=== PATIENT | male | born 1950 | race Caucasian/White ===

== ENCOUNTER 2024-10-12 17:37 | Inpatient (IN) | payer MEDICARE, OTHER, SELFPAY ==
[2024-10-12] VITALS (10 sets, daily range): BP systolic 91–116; BP diastolic 67–89; BMI 19.6
--- NOTE | 2024-10-12 14:59 | ED.GENMED ---
History of Present Illness
General
Chief Complaint: Weakness
Source: patient and ambulance crew
Time Seen by Provider: 10/12/24 14:38
History of Present Illness
History of Present Illness:
74-year-old male with past medical history of urinary tract infection presenting to the emergency department with EMS from home where patient resides with his son and family for evaluation of generalized weakness and change in mental status for the
last week or so. Patient reportedly has history of frequent urinary tract infections and per EMS recently completed antibiotics, patient however without any specific complaints. He is denying any abdominal pain, nausea, vomiting, bowel changes,
urinary frequency/urgency/dysuria or hematuria, pain or swelling to the testicles or any other pain.
Past History
Past History
ED Past Medical History: None; Negative Asthma, HTN, Hypercholesterolemia or NIDDM
ED Past Surgical History: None
Social History
Tobacco: Smoker
Alcohol: Daily (Wine Patient says 2 glasses and son says at least a bottle)
Drug: None
Personal:
Living: with family (Son)
Review of Systems
Review of Systems
All Other Systems: ROS reviewed and negative except as documented in HPI and ROS
Phy Exam
Physical Exam
Physical Exam:
GENERAL: Alert , in no apparent distress, appears older than stated age, soft-spoken, malodorous
HEAD: NCAT
EYE: clear conjunctiva
NECK: Supple
ENT: o/p clr, dry mucous membranes
CARDIAC: Regular rate and rhythm .
LUNGS: Clear breath sounds bilaterally, no acute respiratory distress, no wheezes/rales/rhonchi
ABDOMEN: Soft, without focal tenderness, no r/g, no cvat
NEUROLOGICAL: Alert and oriented to self and place, not time
SKIN: Warm and dry, skin intact.
MUSCULOSKELETAL: well perfused.
PSYCH: Normal and appropriate interaction.
Scores
Heart Failure Risk
Heart Failure Risk Score: Not Applicable
Heart Score for Chest Pain Patients
STEMI patient?: Not applicable
Withdrawal Assessment of Alcohol
Withdrawal Assessment Completed?: Not applicable
Course
Orders/Labs/Results
Orders:
Orders
10/12/24 14:54
Electrocardiogram (*1) Urgent
Reason for Study: Other
Other Reason for Exam: sepsis
EKG- Treatment ONCE
Straight cath- Treatment ONCE
0.9% Sodium Chloride 1000 ml [Nss] 1,900 ml IV NOW STA
10/12/24 15:00
Lactic Acid Q4H
Comment: CANCEL 2nd LACTIC ACID IF 1st LACTIC ACID IS LESS THAN 2
10/12/24 15:10
Urinalysis Reflex To Culture Urgent
Date Specimen was Collected: 10/12/24
Time Specimen was Collected: 15:09
Urine Microscopic Reflex Cult Urgent
Urine Culture Urgent
COLE Source: U
Specimen Description:
Date Specimen was Collected: 10/12/24
Time Specimen was Collected: 15:09
10/12/24 15:42
Complete Blood Count/With Diff Urgent
Comprehensive Metabolic Panel Urgent
Glycohemoglobin (HgbA1c) Urgent
Lactic Acid Q4H
Comment: CANCEL 2nd LACTIC ACID IF 1st LACTIC ACID IS LESS THAN 2
Serum Osmolality Urgent
Comment: ADDON
Blood Culture Q30M
COLE Source: Blood/Venous
Specimen Description:
Blood Culture Q30M
COLE Source: Blood/Venous
Specimen Description:
10/12/24 16:00
Cefepime HCl [Maxipime] 2,000 mg IV NOW STA
10/12/24 17:04
Add On- LAB Routine
Tests Added?: Serum Osmol, HBA1C
10/12/24 17:05
Sterile Water [Sterile Water For Injection] 10 ml .ROUTE .STK-MED ONE
10/12/24 17:30
Admit/Transfer Patient As Directed
Co-Sign Provider:
Level of Care: Inpatient admission
Assign to:: Medical/Surgical
Physician / Group: Hospitalist
Diagnosis: Urinary tract Infection
Reason for Hospitalization: as above
Expected length of stay greater than two midnights?: Yes
ELOS- Estimated Length of Stay in days: 3
I certify the patient meets the requirements for IP care: Yes
PRN Pain Medication Management As Directed
May give lesser potent ordered pain med per pt: Yes
preference::
Protocol:: Medication orders for pain may be administered in a
manner that supports deferring to patient preference
when the pt is:
- Requesting an ordered lesser potent pain medication.
Least to most potent pain medications are defined
as: acetaminophen < NSAID < tramadol < opioids
(morphine, oxycodone, hydromorphone).
- Requesting a lesser dose of the same medication IF
ORDERED.
- Requesting a less intrusive route of administration
if both routes are prescribed by the provider (PO <
IV).
10/12/24 17:31
Code Status As Directed
Resuscitation Status: Full Code
10/12/24 17:34
Bedside Glucose Monitoring As Directed
Frequency: AC&HS
Abnormal Lab Results
10/12/24 10/12/24
15:10 15:42
WBC 12.1 H 10^3/uL
(4.8-10.8)
MCH 31.9 H pg
(27.0-31.0)
MPV 10.5 H fL
(7.4-10.4)
Abs Immat Gran (auto) 0.1 H 10^3/uL
(0-0.05)
Absolute Neuts (auto) 10.2 H 10^3/uL
(1.4-6.5)
Absolute Lymphs (auto) 0.8 L 10^3/uL
(1.2-3.4)
Absolute Monos (auto) 0.8 H 10^3/uL
(0.1-0.6)
Immature Gran % 1.0 H %
(0-0.5)
Neutrophils % 84.7 H %
(42.2-75.2)
Lymphocytes % 6.6 L %
(20.5-51.1)
Sodium 127 L mmol/L
(135-145)
Chloride 87 L mmol/L
(98-107)
BUN 64 H mg/dl
(9-20)
Creatinine 1.4 H mg/dL
(0.7-1.3)
Glucose 437 H mg/dl
(70-99)
Lactic Acid 2.1 H mmol/L
(0.7-2.0)
Alkaline Phosphatase 127 H U/L
(38-126)
Ur Occult Blood Reflex 3+ A
(Negative)
Leukocyte Esterase Rfl 2+ A
(Negative)
Urine RBC 7-10 A /HPF
(0-2)
Urine WBC (Reflex) 30-40 A /HPF
(0-5)
Urine Bacteria (Reflex) Many A
(Negative)
Urine Glucose 3+ A
(Negative)
Urine Albumin (Reflex) 1+ A
(Neg - Trace)
10/12/24 15:42
10/12/24 15:42
Vital Signs
Initial and Last Documented VS:
Initial Vital Signs
BP
96/73
10/12/24 14:43
Last Documented Vital Signs
Temp Pulse Resp BP Pulse Ox
97.8 F 69 12 110/89 100
10/12/24 14:50 10/12/24 17:00 10/12/24 17:00 10/12/24 17:00 10/12/24 14:50
MDM/Problems Addressed
Differential Diagnosis Includes:
Recurring UTI, metabolic encephalopathy, acute kidney injury, electrolyte disturbance
MDM/Problems Addressed:
74-year-old male presenting to the emergency department for evaluation of reported generalized weakness and confusion. On arrival to the ER patient was noted to be hypotensive. Patient is somewhat malodorous and unkempt. Reportedly recently
finished antibiotics for urinary tract infection but patient is unable to expound on this diagnosis any further. Will check labs, urinalysis, blood cultures and lactic acid ordered. Anticipate admission
*Pulse Oximetry
Patient hypoxic: no
*Critical Care Note
Total Time (30-74mins, 75-104mins- exclusive of procedures): Not Applicable
Data Reviewed
Review of Other/Old Records Reveals: Labs and Records
Comment
Comment:
Patient had MSSA on urine culture back in December of this year
Patient Management
Discussion with other providers: Hospitalist
Escalation/DeEscalation of care consider admission/obs:
Patient's labs reveal a leukocytosis of 12,000. Chemistry shows a sodium of 127, significant prerenal azotemia and mild BRIE and hyperglycemia. Patient's corrected sodium however is 132. Lactic acid mildly elevated at 2.1. Patient did receive
sepsis fluid bundle. Urinalysis shows 2+ leukocyte esterase and 30-40 WBCs. Maxipime ordered for broad-spectrum antibiotic coverage. Hospitalist team is aware and accepts patient for continued evaluation and treatment.
ED Attending Note
-
Portions of this chart may have been created with voice recognition software.� Occasional wrong word or��sound alike� substitutions may have occurred due to the inherent limitations of voice recognition software.
Discharge Plan
Departure
Patient Disposition: Admit
Date of Disposition: 10/12/24
Time of Disposition: 16:40
Presentation/result/management discussed w/ accepting MD/DO: Hospitalist
Discharge Problem:
Acute UTI, Acute metabolic encephalopathy, BRIE (acute kidney injury)
Interventions
Interventions:
*General Assessment Last Done: 10/12/24 15:16
*Neglect/Abuse Screening Last Done: 10/12/24 15:16
*ED COVID-19 Vaccine History Last Done: 10/12/24 15:16
ED- Cardiac Assessment Last Done: 10/12/24 15:15
ED- Neurological Assessment Last Done: 10/12/24 15:15
ED- Pulmonary Assessment Last Done: 10/12/24 15:15
[2024-10-12 15:22] LABS: Urine Albumin 1+ (Neg - Trace); Urine Bilirubin Negative (Negative); Urine Character Very Cloudy (Clear); Urine Color Yellow; Urine Glucose 3+ (Negative); Urine Ketone Negative (Negative); Urine Leukocyte 2+ (Negative); Urine Nitrite Negative (Negative); Urine Occult Blood 3+ (Negative); Urine Urobilinogen Negative (Neg - 1+)
[2024-10-12 15:37] LABS: Urine Bacteria Many (Negative); Urine White Cell 30-40 /HPF (0-5)
[2024-10-12] MEDS: NSS 1900 ML IV (15:41)
[2024-10-12 16:13] LABS: % Basophils 0.2 % (0-2); % Lymphocytes 6.6 % (20.5-51.1); % Monocytes 6.5 % (1.7-9.3); % Neutrophils 84.7 % (42.2-75.2); Absolute Eosinophils 0.1 10^3/uL (0-0.7); Absolute Immature Granulocytes 0.1 10^3/uL (0-0.05); Absolute Lymphocytes 0.8 10^3/uL (1.2-3.4); Absolute Monocytes 0.8 10^3/uL (0.1-0.6); Absolute Neutrophils 10.2 10^3/uL (1.4-6.5); Hematocrit 42.4 % (39.0-52.0); Hemoglobin 15.2 g/dL (13.0-18.0); Mean Corp Hgb Conc. 35.8 g/dL (33.0-37.0); Mean Corpuscular Hgb 31.9 pg (27.0-31.0); Mean Corpuscular Volume 89.1 fL (80.0-94.0); Mean Platelet Volume 10.5 fL (7.4-10.4); Nucleated Red Blood Cells % 0 % (-); Platelet Count 281 10^3/uL (130-400); Red Blood Cell Count 4.76 10^6/uL (4.70-6.10); White Blood Cell Count 12.1 10^3/uL (4.8-10.8)
--- NOTE | 2024-10-12 16:20 | PHANOTE ---
Litigain(10/12/24)-Talked to family on phone that lives with patient, difficult for them to administer all medications routinely. Despite having clopidogrel 75mg and levothyroxine 75mcg, family has been unsuccessful in administering these
medications.
[2024-10-12 16:26] LABS: Lactic Acid 2.1 mmol/L (0.7-2.0)
[2024-10-12 16:30] LABS: ALT (SGPT) 16 U/L (0-50); AST (SGOT) 24 U/L (17-59); Albumin 3.8 g/dl (3.5-5.0); Alkaline Phosphatase 127 U/L (38-126); Blood Urea Nitrogen 64 mg/dl (9-20); Calcium 9.9 mg/dl (8.4-10.2); Carbon Dioxide 23 mmol/L (22-30); Chloride 87 mmol/L (98-107); Estimated Creatinine Clearance 40 ml/min; Glucose 437 mg/dl (70-99); Potassium 4.2 mmol/L (3.5-5.1); Sodium 127 mmol/L (135-145); Total Bilirubin 0.9 mg/dl (0.2-1.3); Total Protein 7.4 g/dl (6.3-8.2); eGFR 52.41
--- NOTE | 2024-10-12 16:48 | W.PN.UPDATE ---
Update Note
Progress Note Update
I personally performed a history and physical exam of the patient and discussed management with the resident. I reviewed the resident's note and agree with the documented findings and plan of care HPI/CC.
74-year-old male who presents with chief complaint of weakness.
96/73, 81, 20, 97.8 F, 100%
Gen: NAD, AAOx2.
Eyes: EOMI, PERRLA, no scleral icterus.
Neck: supple.
CV: RRR, +S1/S2, no m/r/g.
Resp: CTAB, no rales, wheezes, or rhonchi.
Abd: +BS, soft, NT, ND
Skin: No rashes.
Neuro: CN 2-12 intact, non-focal.
Psych: Normal mood and affect.
Lab Results
10/12/24 10/12/24
15:10 15:42
WBC 12.1 H
RBC 4.76
Hgb 15.2
Hct 42.4
MCV 89.1
MCH 31.9 H
MCHC 35.8
RDW 13.0
Plt Count 281
MPV 10.5 H
Abs Immat Gran (auto) 0.1 H
Absolute Neuts (auto) 10.2 H
Absolute Lymphs (auto) 0.8 L
Absolute Monos (auto) 0.8 H
Absolute Eos (auto) 0.1
Absolute Basos (auto) 0.0
Immature Gran % 1.0 H
Neutrophils % 84.7 H
Lymphocytes % 6.6 L
Monocytes % 6.5
Eosinophils % 1.0
Basophils % 0.2
Nucleated RBC % 0
Sodium 127 L
Potassium 4.2
Chloride 87 L
Carbon Dioxide 23
BUN 64 H
Creatinine 1.4 H
Estimated Creat Clear 40
eGFR 52.41
Glucose 437 H
Lactic Acid 2.1 H
Calcium 9.9
Total Bilirubin 0.9
AST 24
ALT 16
Alkaline Phosphatase 127 H
Total Protein 7.4
Albumin 3.8
Urine Color Yellow
Urine Clarity Very cloudy
Urine pH 6.0
Ur Specific Driscoll 1.010
Urine Ketones Negative
Ur Occult Blood Reflex 3+ A
Urine Nitrite (Reflex) Negative
Urine Bilirubin Negative
Urine Urobilinogen Negative
Leukocyte Esterase Rfl 2+ A
Urine RBC 7-10 A
Urine WBC (Reflex) 30-40 A
Urine Bacteria (Reflex) Many A
Urine Glucose 3+ A
Urine Albumin (Reflex) 1+ A
BRIE and likely acute metabolic encephalopathy due to possible UTI:
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 U/A with pyuria and no squamous cells but NEG Nitrite.
-30cc/kg NS bolus and Cefepime given by ER
-cont maintenance IVFs
-mild lactic acidosis and mild hyponatremia (corrected Na 132), trend with maintenance IVFs
-follow BCxs/UCx
-most recent UCx 12/08/23 with MSSA. OK for Rocephin at this time.
-trend leukocytosis (left shift noted)
Other problems:
DM2: cont Lantus/SSI/accuchecks, hold home metformin, check a1c
Essential HTN: hold antihypertensives with hypotension
HLD: cont statin
[2024-10-12] MEDS: MAXIPIME 2000 MG IV (17:09)
--- NOTE | 2024-10-12 17:40 | HPS.HSE ---
Addendum entered and electronically signed by Leopoldo Sanchez MD 10/13/24 08:02:
I personally performed a history and physical exam of the patient and discussed management with the resident. I reviewed the resident's note and agree with the documented findings and plan of care HPI/CC.
Original Note:
Family Physician
-
Family Physician: Oliver Allan
Chief Complaint
-
Generalized weakness
History of Present Illness
This is a 74-year-old male with past medical history of recurrent UTIs, type 2 diabetes mellitus who presented to ED for evaluation of generalized weakness and change in mental status. Patient reports he was recently diagnosed with UTI and
completed his antibiotics regimen last week (patient does not remember what antibiotics). He has no other specific complaints. Per patient's son, patient has underlying cognitive impairment. They have an appointment scheduled with neurologist in
4 weeks for evaluation of possible dementia. Patient's baseline is to feed himself, fully active, Ambulates without support, perform self tasks without help. Although this has changed over the past few weeks after his diagnosis with UTI. He has
been more somnolent. Patient denies abdominal pain, nausea, vomiting, difficulty with urination, painful urination, chest pain, shortness of breath. On presentation to ED, blood pressure 96/73, afebrile, pulse 81, respiratory rate 20, O2 sats
100% on room air. Laboratory values showed WBC 12.1, hemoglobin 15.2, sodium 127, potassium 4.2, BUN 64, creatinine 1.4, glucose 437, lactic acid 2.1.
Medical History
Past Medical History
Past Medical History: Reports Other (Type 2 diabetes mellitus)
Past Surgical History: Reports None
Social History
Tobacco: Smoker (Smokes 2 sticks of cigarettes a day)
Alcohol: Former (From a chronic alcoholic, with last drink 5 months ago)
Drug: None
Personal:
Living: With Family
Family History
Family History: Not pertinent
Allergies / Home Medications
Allergies reflects when Allergies were last updated in [employer].
Home Medications with original date entered in [employer]
Allergy/Medication List:
Allergies
Allergy/AdvReac Type Severity Reaction Status Date / Time
No Known Allergies Allergy Verified 12/08/23 22:14
Home Medications
insulin aspart U-100 100 unit/mL (3 mL) subcutaneous pen (Novolog FlexPen U-100 Insulin aspart) 12 unit (0.12 mL) SC AC #15 mL 12/13/23
citalopram 20 mg tablet 20 mg PO DAILY 10/12/24
insulin glargine 100 unit/mL (3 mL) subcutaneous pen (Lantus Solostar U-100 Insulin) 12 unit SC HS 10/12/24
lisinopril 20 mg-hydrochlorothiazide 25 mg tablet 1 tab PO DAILY 10/12/24
metformin 500 mg tablet 500 mg PO DAILY 10/12/24
rosuvastatin 20 mg tablet 20 mg PO DAILY 10/12/24
trazodone 100 mg tablet 100 mg PO HSPRN PRN sleep 10/12/24
Review of Systems
-
History Source: Patient
Constitutional: Reports See HPI
Respiratory: Reports See HPI
Abdomen/GI: Reports See HPI
: Reports See HPI
Physical Exam
Vital Signs
Vital Signs
Temp Pulse Resp BP Pulse Ox
97.8 F 69 12 110/89 100
10/12/24 14:50 10/12/24 17:00 10/12/24 17:00 10/12/24 17:00 10/12/24 14:50
Physical Exam
General: No Apparent Distress and Conversant
HEENT: PERRLA
Respiratory: Clear; No Wheezes, Rales or Rhonchi
Cardiac: S1/S2 and Regular Rhythm
GI: Soft, Non Tender, Non Distended and Normal Bowel Sounds
Musculoskeletal: No Edema
Neuro: Awake, Alert and Oriented (Oriented to place and person, not time)
Laboratory Results
-
10/12/24 15:42
10/12/24 15:42
Laboratory Results
Lactic Acid 2.1 mmol/L (0.7-2.0) H 10/12/24 15:42
Total Bilirubin 0.9 mg/dl (0.2-1.3) 10/12/24 15:42
AST 24 U/L (17-59) 10/12/24 15:42
ALT 16 U/L (0-50) 10/12/24 15:42
Alkaline Phosphatase 127 U/L (38-126) H 10/12/24 15:42
Impression/Plan
-
IMPRESSION/PLAN:
#Acute metabolic encephalopathy likely secondary to UTI
-Patient recently completed course of antibiotics(unk abx) prior to admission.
-Urinalysis with pyuria
-Check urine cultures, blood cultures
-Initiated on IV fluids and cefepime in ER
-At this time will start on Rocephin. His most recent urine culture 12/08/2023 with MSSA
-Follow WBCs
#BRIE likely secondary to UTI
-Creatinine 1.4 on presentation, (baseline 0.8)
-IV fluids
-Monitor BMP
#Hyponatremia
-Na 127 on presentation, corrected for glucose 132.
-Continue IVF
-Monitor BMP
#Type 2 diabetes mellitus
-Continue home Lantus, SSI
-Hold metformin
-Check A1c
#Essential hypertension
-Hold antihypertensives due to hypotension on presentation
#Hyperlipidemia
-Continue statin
DVT prophylaxis-heparin subcu
CODE STATUS-full code
[2024-10-12 18:45] LABS: Osmolality Serum 309 mOsm/kg (275-300)
[2024-10-12] MEDS: NSS 1000 IV (20:24)
--- NOTE | 2024-10-12 21:00 | PTCARENOTE ---
Pt arrived to 3[facility] via stretcher and was pulled over to bed. Admission and assessment complete. Pt unreliable historian and appears to be confused at baseline. During admission pt states he is a current everyday smoker and drinker (3-4 glasses of wine
per day). 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 Pt states he currently uses hydromorphone PO, Valium, Adderall, Percocet, and marijuana. Pt states his last drink was this morning and cannot recall the last
time he used other substances. This RN asked pt if any of these substances were prescribed, pt states they are not prescribed and were from a 'drug dealer that he would rather not name but is someone in his family'. Per H&P pt has appt in 4wks with
neurologist to be evaluated for dementia. During assessment pt AAO X2, disoriented to time and occasionally place (stated he was at [facility], but corrected himself). MSAS score 1. COWS score 0. Urinalysis negative for toxicology. VSS. BG 437 in ED,
BG rechecked on 3W and was 375 @ 2100. DINING ROOM HELPER, Jerri Anderson, notified of patients BG and reported alcohol and drug abuse hx. Pt not currently experiencing any withdraw symptoms and is resting comfortably in bed. Pt. states no further requests at this
time.
[2024-10-12 21:09] LABS: Glucose - Point of Care 375 mg/dl (70-99)
[2024-10-12 21:45] LABS: Fentanyl, Urine Negative (Negative)
--- NOTE | 2024-10-12 21:46 | W.PN.UPDATE ---
Update Note
Progress Note Update
Per nursing - Admission assessment warrants for MSAS and COW. Per nursing assessment he has history of IV drug abuse 15 years ago but now takes marijuana, hydromorphone, Percocet, Adderall as well as consumes alcohol everyday. Upon visit, patient
AAOX2-3 forgetful, difficult to assess accuracy of statements made. Patient does report drinking 3-4 glass of beer and 3-4 glass of wine everyday, last being this morning. Patient also reports he takes oral narcotics that prescribed, but difficult
to tell me which medications. Rx MSAS, COW, and Urine drug screen added to UA. Patient presents no signs of withdrawal at this time.
[2024-10-12 21:49] LABS: Amphetamines Negative (Negative); Barbiturates Negative (Negative); Benzodiazepines Negative (Negative); Buprenorphine Negative (Negative); Cocaine Negative (Negative); Marijuana Negative (Negative); Methadone Negative (Negative); Methamphetamines Negative (Negative); Opiates Negative (Negative); Phencyclidine Negative (Negative); Tricyclic Antidepressants Negative (Negative)
[2024-10-12] MEDS: HEPARIN 5000 UNITS SC (21:51)
[2024-10-12] MEDS: LANTUS 0.12 UNITS SC (21:52)
[2024-10-12] MEDS: STERILE WATER FOR INJECTION 10 ML IV (21:52)
[2024-10-12] MEDS: ROCEPHIN 2000 MG IV (21:52)
[2024-10-12] MEDS: DESENEX/MITRAZOL/ZEASORB 1 APPLIC TOPICAL (21:53)
[2024-10-13 03:00] VITALS: BP 124/70
[2024-10-13] MEDS: NSS 1000 IV ×3 (03:51→20:10)
[2024-10-13 06:00] VITALS: BMI 19.6
[2024-10-13 06:46] LABS: Hemoglobin 13.1 g/dL (13.0-18.0); Mean Corp Hgb Conc. 35.4 g/dL (33.0-37.0); Mean Corpuscular Volume 90.2 fL (80.0-94.0); Mean Platelet Volume 10.2 fL (7.4-10.4); Platelet Count 220 10^3/uL (130-400); Red Cell Dist. Width 13.2 % (11.5-14.5); White Blood Cell Count 10.6 10^3/uL (4.8-10.8)
[2024-10-13] MEDS: CELEXA 20 MG PO (07:22)
[2024-10-13] MEDS: FOLVITE 1 MG PO (07:22)
[2024-10-13] MEDS: CRESTOR 20 MG PO (07:22)
[2024-10-13] MEDS: THIAMINE INJECTION 200 MG IV ×2 (07:23→20:11)
[2024-10-13] MEDS: HEPARIN 5000 UNITS SC ×2 (07:23→20:10)
[2024-10-13 07:24] VITALS: BP 117/73
[2024-10-13] MEDS: DESENEX/MITRAZOL/ZEASORB 1 APPLIC TOPICAL ×2 (07:36→20:10)
[2024-10-13 07:47] LABS: ALT (SGPT) 13 U/L (0-50); AST (SGOT) 17 U/L (17-59); Alkaline Phosphatase 106 U/L (38-126); Blood Urea Nitrogen 49 mg/dl (9-20); Carbon Dioxide 25 mmol/L (22-30); Chloride 98 mmol/L (98-107); Direct Bilirubin 0.3 mg/dl (0.0-0.4); Estimated Creatinine Clearance 48 ml/min; Glucose 217 mg/dl (70-99); Potassium 3.4 mmol/L (3.5-5.1); Sodium 134 mmol/L (135-145); Total Bilirubin 0.4 mg/dl (0.2-1.3); Total Protein 6.2 g/dl (6.3-8.2); eGFR > 60.00
[2024-10-13 08:00] LABS: Glucose - Point of Care 205 mg/dl (70-99)
--- NOTE | 2024-10-13 08:02 | W.PN.UPDATE ---
Update Note
Progress Note Update
I saw and evaluated the patient. I reviewed the resident�s note and agree with findings and plan as documented in the resident�s note.
Denies chest pain, shortness breath, abdominal pain.
Gen: NAD, AAOx2-3, appears malnourished.
Eyes: EOMI, PERRLA, no scleral icterus.
Neck: supple.
CV: RRR with occasional premature beats, +S1/S2, no m/r/g.
Resp: Remains CTAB, no rales, wheezes, or rhonchi.
Abd: +BS, soft, NT, ND
Skin: No rashes.
Neuro: CN 2-12 intact, non-focal.
Psych: Normal mood and affect.
BRIE and likely acute metabolic encephalopathy due to possible UTI:
-pt recently completed course of PO abx UI ARCHITECT. U/A with pyuria and no squamous cells but NEG Nitrite.
-30cc/kg NS bolus and Cefepime given by ER
-UDS NEG
-question of alcohol abuse disorder, currently on MSAS protocol (thiamine/folate/PRN ativan). c/s psych.
-cont maintenance IVFs
-mild lactic acidosis and mild hyponatremia, now resolved with IVFs
-follow BCxs/UCx
-most recent UCx 12/08/23 with MSSA. cont Rocephin.
-leukocytosis has resolved
Other problems:
DM2: a1c 14.8%, cont Lantus/SSI/accuchecks, hold home metformin
Essential HTN: hold antihypertensives with hypotension
HLD: cont statin
FULL/Heparin
Total time spent on today's encounter was 50 minutes which included time spent in counseling the patient/family regarding diagnosis and treatment plan as listed above, goals of care, and symptom management. Case was discussed with nursing staff,
specialists, and care coordinators/case management. All labs and imaging personally reviewed by me. Remainder the time spent in detailed review of previous records, lab data, imaging, and other medical provider documentation.
--- NOTE | 2024-10-13 08:03 | W.PN.HOSP.TC ---
Today's Communication/Plan
-
Continue Abx
Psych consult
Assessment / Plan
Assessment / Plan
IMPRESSION/PLAN:
#Acute metabolic encephalopathy likely secondary to UTI
-Patient recently completed course of antibiotics(unk abx) prior to admission.
-Urinalysis with pyuria
-urine cultures, blood cultures pending
-Continue on Rocephin. His most recent urine culture 12/08/2023 with MSSA
-Follow WBCs
#BRIE likely secondary to UTI
-Creatinine 1.4 on presentation, (baseline 0.8)
-Now resolving on IV fluids
-Monitor BMP
#Mild Hyponatremia
-Improving with IVF
#Type 2 diabetes mellitus
-Continue home Lantus, SSI
-Hold metformin
-A1C pending.
#Essential hypertension
-Hold antihypertensives due to hypotension on presentation
#Hyperlipidemia
-Continue statin
#History of Multiple substance abuse
-Urine drug screen negative.
-Discussed with Patient's son. Patient was a chronic alcoholic, but has not had a drink in 5 months. Patient does not use any other substances.
-Today, patient oriented to person only.
-Will keep on MSAS protocol for now.
-Will consult Psych.
Anticipated Discharge: 24 - 48 hours
Subjective/Interval History
-
Patient seen and examined at bedside today. Patient is oriented to person only. Again, he denies Alcohol use. He denies drug use. He denies acute complaint.
Objective Data
-
Labs:
Laboratory Results
10/13/24
06:24
WBC 10.6
Hgb 13.1
Hct 37.0 L
Plt Count 220 D
Sodium 134 L
Potassium 3.4 L
Chloride 98
Carbon Dioxide 25
BUN 49 H
Creatinine 1.2
Glucose 217 H
Calcium 9.0
Total Bilirubin 0.4
AST 17
ALT 13
Alkaline Phosphatase 106
Vital Signs:
Vital Signs
Temp Pulse Resp BP Pulse Ox
98.3 F 57 17 117/73 97
10/13/24 07:24 10/13/24 07:24 10/13/24 07:24 10/13/24 07:24 10/13/24 07:24
I&O
10/12/24 10/13/24 10/14/24
06:59 06:59 06:59
Intake Total 1240 / 1240
Output Total 775 / 775
Balance 465 / 465
Review of Systems
-
All other systems: Reviewed and negative (EXCEPT DOCUMENTED)
Physical Exam
-
General: No Apparent Distress
HEENT: Normocephalic
Respiratory: Clear to Auscultation; Negative Wheezes, Rales or Rhonchi
Cardiac: Regular Rhythm and S1/S2
GI: Soft, Nontender, Nondistended and Normal Bowel Sounds
Musculoskeletal: No Edema
Neuro: Awake, Alert and Oriented (ORIENTED TO ONLY PERSON. )
[2024-10-13] MEDS: NOVOLOG FLEXPEN 12 UNITS SC ×2 (08:16→13:02)
[2024-10-13] MEDS: KCL 40 MEQ PO (08:17)
[2024-10-13 08:59] LABS: Magnesium 2.1 mg/dl (1.6-2.3)
[2024-10-13 09:34] LABS: Glycohemoglobin (HgbA1c) 14.8 % (4.0-5.6)
[2024-10-13] MEDS: ROCEPHIN 2000 MG IV (10:08)
[2024-10-13] MEDS: STERILE WATER FOR INJECTION 10 ML IV (10:08)
[2024-10-13 11:13] VITALS: BP 98/57
[2024-10-13 11:50] LABS: Glucose - Point of Care 226 mg/dl (70-99)
--- NOTE | 2024-10-13 12:52 | CM ---
Reviewed chart, received consult for ETOH/Subtance counseling. Met with patient and his son who was at bedside. Patient stated that he lives with his other son, daughter in law and grandkids in a two story home, with one step to enter. He described
himself as independent with all of his ADLs, personal care, bathing and dressing. Patient needs some assistance with clinical informatics director, cooking, cleaning and laundry and his son and daughter in law assist. Patient's other son, who was with patient in
room stated that he provides all transportation to appointments and helps with the shopping. Patient stated that he ambulates without device but does have a cane and a walker if needed.
Patient has never had VN services.
Patient has never been to a SNF.
Patient has a prescription plan and uses, [facility] in [place] for all of his medications.
His PCP is, Oliver Allan. Patient was offered resources/assistance for ETOH and substance however he firmly denied an issue with either and his son validated his response.
Plan: Case management will continue to follow and assist with discharge planning. Home when stable. Patient's son can pick him up.
[2024-10-13 13:41] VITALS: BMI 19.6
--- NOTE | 2024-10-13 13:52 | PN.DE.MGMTRT ---
Insulin Management
- -
10/13/2024: Diabetes Management Consult
74 year old male with PMH: IDDM and recurrent UTIs. Pt presented to ED for evaluation of generalized weakness and change in mental status.
On arrival to the ER patient was hypotensive, malodorous and unkempt. He was noted for metabolic encephalopathy, BRIE, electrolyte disturbance and UTI.
Blood sugar on admission was 437, A1C 14.8%, Cr 1.4-->1.2, eGFR >60 today. Pt reports that his PCP dr. Allan at [facility] manages his diabetes.
Pt is a awake, alert, sitting up in bed, offers no complaints, able to discuss his OP diabetes regimen.
Chart review indicates he was taking Lantus 12 units @ HS and NovoLog 12 units AC with Metformin 500mg daily, however, pt reports that he stopped taking insulin >3 months ago but continued taking the Metformin. Reports that he stopped taking his
insulin due to changes in his appetite and that he was not eating as much. He also stopped monitoring his blood sugars before meals but continued monitoring daily in the morning- Fasting.
His glucose has been persistently elevated >200 since admission. Insulin regimen was started by his primary team Dr. Pickens.
Pt received Lantus 12 units @ HS, FBG of 216 (V) this AM. Pre-breakfast glucose was 205 and 226 pre-lunch.
Will increase AC NovoLog to 15 units and Lantus to 15 units @ HS.
Metformin has been on hold since admission due to BRIE, will resume at 1000mg BID, 1st dose at dinner, no that BRIE has resolved
He is on a 2200 gee diet. Will change to 1800 gee.
Discussed with pt and Nurse. Pt reports he has a glucose monitor with enough supplies at home.
Diabetes History
- -
Type of Diabetes: 2 requiring insulin
Pre-Admission Diabetes Regimen
10/12/24 10/13/24
15:42 06:24
Creatinine 1.4 H 1.2
Lab Results
Hemoglobin A1c 14.8 % (4.0-5.6) H 10/12/24 15:42
Insulin Pump Settings
IP Diabetes Regimen
10/12/24 10/12/24 10/13/24
15:42 21:08 06:24
Glucose 437 H 217 H
POC Glucose 375 H
10/13/24 10/13/24
07:58 11:48
Glucose
POC Glucose 205 H 226 H
Patient Education
[2024-10-13 15:05] VITALS: BP 103/47
[2024-10-13 16:30] LABS: Glucose - Point of Care 147 mg/dl (70-99)
[2024-10-13] MEDS: GLUCOPHAGE 1000 MG PO (16:55)
[2024-10-13] MEDS: NOVOLOG FLEXPEN 15 UNITS SC (16:56)
[2024-10-13 19:00] VITALS: BP 100/61
--- NOTE | 2024-10-13 21:07 | CON.MD ---
Consultation - Medical
-
74 yr old M w/ PMH of DMT2, HTN, HLD & EtOH abuse, presenting with BRIE in setting of UTI. Psychiatry consulted for concerns of recent EtOH abuse & possibility of w/d.
Pt seen & evaluated at bedside, chart reviewed. He reports hx of EtOH abuse since his late teens, says would drink bottle of wine daily. Denies hx of w/d seizures or AM tremulousness. Denies any significant sobriety, says at most was for few weeks.
Initially on admission he reported that he stopped drinking 5 months ago, then told staff it was shortly GROMMET MAN. Today he initially said it was 2 months ago, then a few weeks ago. Suspect that either he has continued drinking, or possibly is in early
stages of Korsakoff syndrome and struggles with timeline consistency. VS have been stable so far, no tremulousness observed on exam.
He does report some history of nonspecific depression on and off in the past, but denies current symptoms.
Denies significant prior psych hx - psychotropics prescribed by primary.
Denies FH of significant psychiatric illness.
Alcohol abuse d/o, possibly early sobriety?
MSE: male, good eye contact, disheveled, cooperative, pleasant. Speech is nl rate & rhythm. Mood is OK, affect appropriate. Thought process linear, goal directed. Denies SI/HI/AVH/delusions. AAOx3. Memory not formally tested. Insight/judgement fair.
Continue MSAS protocol, monitor for signs of etoh w/d as sobriety period remains unclear
Continue current medication, no indication for changes in psychotropics
[2024-10-13 21:28] LABS: Glucose - Point of Care 103 mg/dl (70-99)
[2024-10-13 23:00] VITALS: BP 104/59
[2024-10-13] MEDS: LANTUS 0.15 UNITS SC (23:15)
[2024-10-14 02:17] LABS: Glucose - Point of Care 143 mg/dl (70-99)
[2024-10-14 03:00] VITALS: BP 104/62
[2024-10-14] MEDS: NSS 1000 IV (05:29)
--- NOTE | 2024-10-14 07:25 | PN.DE.MGMTRT ---
Insulin Management
- -
10/14/2024: Diabetes Management Consult Follow up
Patient admitted with generalized weakness and change in mental status. On arrival to the ER patient was hypotensive, malodorous and unkempt. He was noted for metabolic encephalopathy, BRIE, electrolyte disturbance and UTI. PMH: IDDM and recurrent
UTIs.
Blood sugar on admission was 437, A1C 14.8%, Cr 1.4-->1.2, eGFR >60. Pt reports that his PCP dr. Allan, at [facility], manages his diabetes.
Pt is a awake, alert, sitting up in bed, offers no complaints, ordering lunch, agitated but able to discuss his OP diabetes regimen.
Chart review indicates he was taking Lantus 12 units @ HS and NovoLog 12 units AC with Metformin 500mg daily, however, pt reports that he stopped taking insulin >3 months due to changes in his appetite and that he was not eating as much. He also
stopped monitoring his blood sugars before meals but continued monitoring daily in the morning- Fasting.
His glucose has been persistently elevated >200 since admission. Insulin regimen was started by his primary team Dr. Pickens.
Pt received Lantus 12 units @ HS, FBG of 216 (V) this AM. Pre-breakfast glucose was 205 and 226 pre-lunch.
10/13 Glucose in AM > 200, CR 1.2, eGFR > 60, insulin increased to NovoLog 15 units AC, pre dinner glucose 147, HS 143. Metformin has been on hold since admission due to BRIE, resumed 1000mg BID at dinner.
10/14 Patient received increased dose of lantus, 15 units @ hs. Fasting glucose this AM 147, received 15 units novolog, pre lunch glucose 100. Will decrease AC novolog to 12 units.
Discussed with patient importance of testing glucose prior to meal to be sure he takes the correct dose of insulin. He is not receptive at this time. I am not sure he will be reliable to take his insulin safely and check his glucose at home
without supervision/support.
Discussed with Nurse. Pt reports he has a glucose monitor with enough supplies at home.
Diabetes History
- -
Type of Diabetes: 2 requiring insulin
Pre-Admission Diabetes Regimen
10/13/24
06:24
Creatinine 1.2
Lab Results
Hemoglobin A1c 14.8 % (4.0-5.6) H 10/12/24 15:42
Insulin Pump Settings
IP Diabetes Regimen
10/13/24 10/13/24 10/13/24
06:24 07:58 11:48
Glucose 217 H
POC Glucose 205 H 226 H
10/13/24 10/13/24 10/14/24
16:28 21:27 02:15
Glucose
POC Glucose 147 H 103 H 143 H
Meal type: Dinner
Meal type: Lunch
Meal type: Breakfast
Amount consumed: 50%
Amount consumed: 50%
Amount consumed: 100%
Patient Education
[2024-10-14 07:29] VITALS: BP 92/55
[2024-10-14 07:41] LABS: Glucose - Point of Care 147 mg/dl (70-99)
[2024-10-14 07:47] LABS: Blood Urea Nitrogen 30 mg/dl (9-20); Calcium 8.4 mg/dl (8.4-10.2); Carbon Dioxide 24 mmol/L (22-30); Chloride 106 mmol/L (98-107); Estimated Creatinine Clearance 52 ml/min; Glucose 114 mg/dl (70-99); Potassium 3.4 mmol/L (3.5-5.1); Sodium 137 mmol/L (135-145); eGFR > 60.00
[2024-10-14] MEDS: ROCEPHIN 1000 MG IV (07:54)
[2024-10-14] MEDS: STERILE WATER FOR INJECTION 10 ML IV (07:55)
[2024-10-14] MEDS: CRESTOR 20 MG PO (07:56)
[2024-10-14] MEDS: THIAMINE INJECTION 200 MG IV (07:56)
[2024-10-14] MEDS: HEPARIN 5000 UNITS SC (07:58)
[2024-10-14] MEDS: GLUCOPHAGE 1000 MG PO (07:59)
[2024-10-14] MEDS: FOLVITE 1 MG PO (08:00)
[2024-10-14] MEDS: CELEXA 20 MG PO (08:01)
[2024-10-14] MEDS: DESENEX/MITRAZOL/ZEASORB 1 APPLIC TOPICAL (08:02)
--- NOTE | 2024-10-14 08:02 | W.PN.HOSP.TC ---
Today's Communication/Plan
-
.
Assessment / Plan
Assessment / Plan
IMPRESSION/PLAN:
#Acute metabolic encephalopathy likely secondary to UTI
-Patient recently completed course of antibiotics(unk abx) prior to admission.
-Urinalysis with pyuria
-urine culture positive for Aury Albicans.
-Blood culture with Coag Neg staph, most likely contaminant.
-discontinue Rocephin.
-Patient denies acute symptoms
#BRIE likely secondary to UTI
-Now resolved.
Hypokalemia
-Replete.
#Type 2 diabetes mellitus
-Regimen adjusted by Diabetes Nurse Practitioner.
-AC NovoLog 15 units and Lantus to 15 units @ HS
-Metformin 1000mg BID
-a1c 14.8%
#Essential hypertension
-Hold antihypertensives due to soft BPs
#Hyperlipidemia
-Continue statin
#History of Multiple substance abuse
-Urine drug screen negative.
-Discussed with Patient's son. Patient was a chronic alcoholic, but has not had a drink in 5 months. Patient does not use any other substances at this time
-Will d/c MSAS protocol.
-Psych Consulted Yesterday 10/13.
Anticipated Discharge: Within 24 hours
Subjective/Interval History
-
Patient seen and examined at bedside. Patient denies acute complaint. States he wants to go home.
Objective Data
-
Labs:
Laboratory Results
10/14/24
06:42
WBC Pending
Hgb Pending
Hct Pending
Plt Count Pending
Sodium 137
Potassium 3.4 L
Chloride 106
Carbon Dioxide 24
BUN 30 H
Creatinine 1.1
Glucose 114 H
Calcium 8.4
Vital Signs:
Vital Signs
Temp Pulse Resp BP Pulse Ox
97.8 F 50 16 92/55 99
10/14/24 07:29 10/14/24 07:29 10/14/24 03:00 10/14/24 07:29 10/14/24 07:29
I&O
10/13/24 10/14/24 10/15/24
06:59 06:59 06:59
Intake Total 1240 / 1240 720 / 720 480 / 480
Output Total 775 / 775 300 / 300 350 / 350
Balance 465 / 465 420 / 420 130 / 130
Review of Systems
-
All other systems: Reviewed and negative (except as documented)
Physical Exam
-
General: No Apparent Distress
Respiratory: Clear to Auscultation
Cardiac: S1/S2
GI: Soft, Nontender, Nondistended and Normal Bowel Sounds
Musculoskeletal: No Edema
Neuro: Awake and Alert
Psych: Calm
[2024-10-14 08:40] LABS: % Basophils 0.3 % (0-2); % Eosinophils 1.6 % (0-6); % Immature Granulocytes 1.1 % (0-0.5); % Lymphocytes 11.6 % (20.5-51.1); % Monocytes 7.1 % (1.7-9.3); % Neutrophils 78.3 % (42.2-75.2); Absolute Eosinophils 0.1 10^3/uL (0-0.7); Absolute Immature Granulocytes 0.1 10^3/uL (0-0.05); Absolute Lymphocytes 0.9 10^3/uL (1.2-3.4); Absolute Monocytes 0.5 10^3/uL (0.1-0.6); Hematocrit 32.2 % (39.0-52.0); Hemoglobin 11.1 g/dL (13.0-18.0); Mean Corp Hgb Conc. 34.5 g/dL (33.0-37.0); Mean Corpuscular Volume 92.8 fL (80.0-94.0); Mean Platelet Volume 10.9 fL (7.4-10.4); Nucleated Red Blood Cells % 0 % (-); Platelet Count 216 10^3/uL (130-400); Red Blood Cell Count 3.47 10^6/uL (4.70-6.10); Red Cell Dist. Width 13.5 % (11.5-14.5); White Blood Cell Count 7.6 10^3/uL (4.8-10.8)
--- NOTE | 2024-10-14 09:27 | W.PN.UPDATE ---
Addendum entered and electronically signed by Leopoldo Sanchez MD 10/14/24 11:28:
Underweight and cachectic
Original Note:
Update Note
Progress Note Update
I saw and evaluated the patient. I reviewed the resident�s note and agree with findings and plan as documented in the resident�s note.
Denies chest pain, shortness breath.
Gen: NAD, AAOx2-3, appears malnourished.
Eyes: EOMI, PERRLA, no scleral icterus.
Neck: supple.
CV: RRR, +S1/S2, no m/r/g.
Resp: continues to remain CTAB, no rales, wheezes, or rhonchi.
Abd: +BS, soft, NT, ND
Skin: No rashes.
Neuro: CN 2-12 intact, non-focal.
Psych: Normal mood and affect.
10/12/24 15:10 Urine Urine Culture - Final
Aury albicans
10/12/24 15:42 Blood/Venous Blood Culture - Preliminary
Coagulase neg. staphylococcus
Additional testing on request
10/12/24 15:42 Blood/Venous Gram Stain - Preliminary
10/12/24 20:58 Nose MRSA Screen - Final
No Methicillin Resistant Staphylococcus aureus isolated.
10/12/24 15:42 Blood/Venous Blood Culture - Preliminary
No Growth in 24 hours- Final report to follow
BRIE and likely acute metabolic encephalopathy:
-pt recently completed course of PO abx END FRAZER. U/A with pyuria and no squamous cells but NEG Nitrite. UTI now ruled out with UCx with aury which is not an active pathogen.
-30cc/kg NS bolus and Cefepime given by ER
-UDS NEG
-question of alcohol abuse disorder, has been on MSAS protocol (thiamine/folate/PRN ativan)
-BRIE, mild lactic acidosis, and mild hyponatremia have now resolved with IVFs
-BCx with ACCOUNT SUPPORT ANALYST (contaminant)
-stop Rocephin
-leukocytosis has resolved and, in retrospect, was reactive
Other problems:
Hypokalemia: PO K
DM2: a1c 14.8%, cont Lantus/SSI/accuchecks, restart home metformin
Essential HTN: hold antihypertensives with hypotension
HLD: cont statin
FULL/Heparin
Medically cleared for discharge. Case management aware.
Total time spent on d/c = 31 min. This included today's physical exam, progress note, review of laboratory and diagnostic data, preparation of discharge documents and prescriptions, and discussions about the pt's hospital course and discharge plan
with the patient and other medical doctor nuclear medicine involved in the patient's care.
[2024-10-14] MEDS: NOVOLOG FLEXPEN 15 UNITS SC (09:38)
[2024-10-14] MEDS: KCL 40 MEQ PO (09:43)
--- NOTE | 2024-10-14 09:49 | PN.CDI ---
CDI
- -
CDI:
Physician Documentation Request
Admit Date: 10/12/24 17:37
Dear Doctor Nelia,
Patient admitted with UTI.
Please review the following and provide your response in the progress notes.
Clinical Indicators:
Height: 5' 11'
Weight: 140 lbs
BMI: 19.6
If possible, please provide an associated diagnosis related to the abnormal BMI, such as:
Underweight
Cachectic
BMI is not significant
Other
BMI < or = to 19.9
Underweight
Weight Loss
Cachectic
Anorexia
Use of terms such as suspected, likely, concern for, or probable (associated with a specific diagnosis that is being evaluated, monitored, or treated as if it exists) are acceptable and can be coded in the inpatient setting, when documented at the
time of discharge.
Thank you,
Mell Okeefe RN, BSN
CDI Specialist
Available via [facility] text
Please use your independent medical judgment in providing your response.
[2024-10-14 11:00] VITALS: BP 95/56
--- NOTE | 2024-10-14 11:35 | W.DCSUMMARY ---
Addendum entered and electronically signed by Leopoldo Sanchez MD 10/14/24 14:32:
Read, reviewed, and agree. See same day progress note for additional details.
Original Note:
Discharge Summary
Discharge Data
Date of Admission: 10/12/24
Date of Discharge: 10/14/24
-
Pending Results: No
Hospital Course
This is a 74-year-old male with past medical history of recurrent UTIs, type 2 diabetes mellitus who presented to ED for evaluation of generalized weakness and change in mental status. Patient reports he was recently diagnosed with UTI and
completed his antibiotics regimen last week (patient does not remember what antibiotics). He has no other specific complaints. Patient denied abdominal pain, nausea, vomiting, difficulty with urination, painful urination, chest pain, shortness of
breath. On presentation to ED, blood pressure 96/73, afebrile, pulse 81, respiratory rate 20, O2 sats 100% on room air. Laboratory values showed WBC 12.1, hemoglobin 15.2, sodium 127, potassium 4.2, BUN 64, creatinine 1.4, glucose 437, lactic
acid 2.1. Urinalysis with pyuria adenosquamous cells but negative nitrites. He was administered 30cc/kg NS bolus and IV cefepime. He was admitted. Patient was continued on maintenance IV fluids, and antibiotics regimen changed to Rocephin. The
next day, leukocytosis resolved. BRIE resolved with IV fluids. Two days later, urine cultures returned with Aury albican which rule out a UTI diagnosis. Blood cultures returned positive for coagulase-negative Staphylococcus, which was most
likely a contaminant. He Rocephin medication was discontinued. Throughout the course of his hospital stay, patient's overall symptoms improved. Leukocytosis was most likely reactive. He had no episodes of febrile fever, no urinary symptoms.
During his hospital stay, patient denied history of hypertension. He states he was not taking any blood pressure medication. Blood pressure was stable throughout the course of his hospital stay, off his medications.
Type 2 diabetes mellitus; on presentation blood glucose was 437, A1c 14.8%. Patient was previously on Lantus 12 units at bedtime and NovoLog 12 units premeals. Patient reports he stopped taking his insulin regimen >3 months ago but continued
taking his metformin 500 mg daily. He will be discharged home on his insulin regimen dosages increased. He will be discharged home on 15 units NovoLog AC and Lantus 15 units at bedtime. In addition his metformin dosage be increased to 1000 mg
twice daily.
Discharge Plan
-
Patient Disposition: Home (Routine Discharge)
Discharge Diagnosis/Procedures: Acute metabolic encephalopathy
Acute kidney injury
Type 2 diabetes mellitus
Condition: Fair
Diet: Diabetic, Carb Controlled
Activity: As tolerated
Referrals:
Oliver Allan DO [Family Provider] - in one to two weeks
Additional Discharge Medication Instructions: Your meal time insulin has been increased to 15 units
Bedtime Lantus increased to 15units.
Metformin dosage increased to 1000mg BID.
Prescriptions:
New
metformin 1,000 mg Tablet
1,000 mg PO BID@0800,1700 Qty: 30 0RF
insulin glargine U-300 conc 300 unit/mL (3 mL) insulin pen
15 unit SC DAILY Qty: 3 0RF
insulin aspart U-100 100 unit/mL (3 mL) Insulin Pen
15 unit SC AC Qty: 3 0RF
Continued
citalopram 20 mg Tablet
20 mg PO DAILY
trazodone 100 mg Tablet
100 mg PO HSPRN PRN (Reason: sleep)
lisinopril-hydrochlorothiazide 20-25 mg Tablet
1 tab PO DAILY
rosuvastatin 20 mg Tablet
20 mg PO DAILY
Discontinued
insulin aspart U-100 [Novolog FlexPen U-100 Insulin] 100 unit/mL (3 mL) Insulin Pen
12 unit SC AC Qty: 15 0RF
insulin glargine [Lantus Solostar U-100 Insulin] 100 unit/mL (3 mL) Insulin Pen
12 unit SC HS
Patient Comments:
10/12/24: Per family, hard to get patient to take this medication.
metformin 500 mg tablet
500 mg PO DAILY
Discharge Orders:
Discharge Patient (As Directed); Ordered 10/14/24
Ordered By: Greer Pickens
Discharge Date and Time
Print Language: ARGENTINE
[2024-10-14 11:49] LABS: Glucose - Point of Care 100 mg/dl (70-99)
[2024-10-14] MEDS: NOVOLOG FLEXPEN SC (12:32)
[2024-10-14] MEDS: NOVOLOG FLEXPEN 12 UNITS SC (12:44)
--- NOTE | 2024-10-14 13:28 | CM ---
Reviewed chart, spoke with attending who stated that patient is medically cleared for discharge. Met with patient who signed IMM and stated that his son will pick him up. He expressed no further needs.
Plan: Case management will continue to follow and assist with discharge planning. Home no needs.
[2024-10-14 15:53] VITALS: BP 107/68
== END 2024-10-14 16:03 | disposition home or self-care (01) | DRG 682 ==
LOC: 3 WEST ACU 17:37
PROVIDERS: Nurse Practitioner Gerontology; Physician Assistant Medical; Student in an Organized Health Care Education/Training Program; ADMITTING PHYSICIAN Internal Medicine; CONSULT PHYSICIAN Psychiatry & Neurology Psychiatry; EMERGENCY PHYSICIAN Emergency Medicine; FAMILY PHYSICIAN Family Medicine
DX: N17.9 Acute kidney failure, unspecified (principal); G93.41 Metabolic encephalopathy; N39.0 Urinary tract infection, site not specified; R64 Cachexia; Z68.1 Body mass index [BMI] 19.9 or less, adult; F17.210 Nicotine dependence, cigarettes, uncomplicated; E87.6 Hypokalemia; E11.65 Type 2 diabetes mellitus with hyperglycemia; I10 Essential (primary) hypertension; E78.00 Pure hypercholesterolemia, unspecified
CPT/HCPCS: 80048; 80053; 80306; 80307; 81003; 81015; 82248; 82962; 83036; 83605; 83735; 83930; 85025; 85027; 87040; 87070; 87086; 87150; 87205; 93005; 96361; 96374; 99285; 99406

== ENCOUNTER 2024-11-01 22:54 | Inpatient (IN) | payer MEDICARE, OTHER, SELFPAY ==
[2024-11-01 16:28] VITALS: BP 105/71
[2024-11-01 16:58] LABS: % Basophils 0.7 % (0-2); % Eosinophils 0.8 % (0-6); % Immature Granulocytes 0.9 % (0-0.5); % Lymphocytes 10.2 % (20.5-51.1); % Monocytes 5.3 % (1.7-9.3); % Neutrophils 82.1 % (42.2-75.2); Absolute Basophils 0.1 10^3/uL (0-0.2); Absolute Eosinophils 0.1 10^3/uL (0-0.7); Absolute Immature Granulocytes 0.1 10^3/uL (0-0.05); Absolute Monocytes 0.5 10^3/uL (0.1-0.6); Absolute Neutrophils 8.3 10^3/uL (1.4-6.5); Hematocrit 34.6 % (39.0-52.0); Hemoglobin 11.7 g/dL (13.0-18.0); Mean Corp Hgb Conc. 33.8 g/dL (33.0-37.0); Mean Corpuscular Hgb 31.2 pg (27.0-31.0); Mean Corpuscular Volume 92.3 fL (80.0-94.0); Mean Platelet Volume 9.8 fL (7.4-10.4); Nucleated Red Blood Cells % 0 % (-); Platelet Count 451 10^3/uL (130-400); Red Blood Cell Count 3.75 10^6/uL (4.70-6.10); Red Cell Dist. Width 13.7 % (11.5-14.5); White Blood Cell Count 10.1 10^3/uL (4.8-10.8)
[2024-11-01 17:09] LABS: ALT (SGPT) 42 U/L (0-50); AST (SGOT) 52 U/L (17-59); Albumin 3.5 g/dl (3.5-5.0); Alkaline Phosphatase 181 U/L (38-126); Blood Urea Nitrogen 25 mg/dl (9-20); Calcium 9.8 mg/dl (8.4-10.2); Carbon Dioxide 24 mmol/L (22-30); Chloride 99 mmol/L (98-107); Glucose 300 mg/dl (70-99); Potassium 4.2 mmol/L (3.5-5.1); Sodium 137 mmol/L (135-145); Total Bilirubin 0.6 mg/dl (0.2-1.3); Total Protein 7.5 g/dl (6.3-8.2); eGFR 52.41
[2024-11-01 19:05] VITALS: BP 111/74
--- NOTE | 2024-11-01 19:09 | ED.GENMED ---
History of Present Illness
General
Chief Complaint: Weakness
Source: patient
Exam Limitations: none
Time Seen by Provider: 11/01/24 18:58
Nursing documentation reviewed up to this point in time: agreed with
History of Present Illness
History of Present Illness:
Patient to ED for eval s/p fall. He states he fell earlier today, unsure what caused fall. Right foot with open wound on plantar surface, large amt of foul smelling pus draining from foot. blue tinge to right great toe. He states this started 1
day ago. He does not feel that he needs to be here however he is unable to stand or transfer without max assist. He offers no complaints.
Past History
Past History
ED Past Medical History: None; Negative Asthma, HTN, Hypercholesterolemia or NIDDM
ED Past Surgical History: None
Social History
Tobacco: Smoker
Alcohol: Daily (Wine Patient says 2 glasses and son says at least a bottle)
Drug: None
Personal:
Living: with family (Son)
Review of Systems
Review of Systems
Allergies reviewed?: Yes
All Other Systems: ROS reviewed and negative except as documented in HPI and ROS
Constitutional: Reports no symptoms
EENT: Reports no symptoms
Respiratory: Reports no symptoms
Cardiac: Reports no symptoms
ABD/GI: Reports no symptoms
: Reports no symptoms
Musculoskeletal: Reports joint pain (painful right foot)
Skin: Reports other (open wound plantar survace right foot. Large amt foul smelling pus draining fromfoot)
Neurological: Reports no symptoms
Psychiatric: Reports no symptoms
Phy Exam
General Physical Exam
General Presentation: mild distress
General age: appears stated age
General Skin: warm and dry
General Habitus: normal
General Mental: confused (baseline)
Cardiovascular Exam
Cardiovascular Exam: regular rate/rhythm
Pulmonary Exam
Pulmonary Exam: lungs clear, no respiratory distress and chest non tender
Gastrointestinal Exam
Gastrointestinal Exam: normal bowel sounds and non tender
Musculoskeletal Exam
Musculoskeletal Exam: full ROM, neuro vasc intact and other (Unable to stand or transfer without max assist. Son feels this is new for him)
Skin Exam
Skin Exam: other (Cellulitis, open draining wound right plantar foot.)
Psychiatric Exam
Psychiatric Exam: normal mood/affect
Course
Orders/Labs/Results
Orders:
Orders
11/01/24 16:47
Complete Blood Count/With Diff Urgent
Comprehensive Metabolic Panel Urgent
11/01/24 19:30
CR Foot - Right Min 3 Views Urgent
Comment:
Reason For Exam: cellulitis
11/01/24 19:32
Blood Culture Urgent
COLE Source: Blood/Venous
Specimen Description:
Wound Culture [Wound/Abscess/Other Culture] Urgent
COLE Source: Foot
Specimen Description: Left
Date Specimen was Collected: 11/01/24
Time Specimen was Collected: 19:17
11/01/24 19:33
Blood Culture Urgent
COLE Source: Blood/Venous
Specimen Description:
11/01/24 19:37
Lactic Acid Urgent
11/01/24 20:32
Vancomycin [Vancocin] 1,500 mg 0.9% Sodium Chloride 500 ml [Nss] 500 ml IV NOW
11/01/24 22:20
Admit/Transfer Patient As Directed
Co-Sign Provider:
Level of Care: Inpatient admission
Assign to:: Medical/Surgical
Physician / Group: aaron
Diagnosis: right foot cellulitis
Reason for Hospitalization: right foot cellulitis
Expected length of stay greater than two midnights?: Yes
ELOS- Estimated Length of Stay in days: 3
I certify the patient meets the requirements for IP care: Yes
11/01/24 22:21
PRN Pain Medication Management As Directed
May give lesser potent ordered pain med per pt: Yes
preference::
Protocol:: Medication orders for pain may be administered in a
manner that supports deferring to patient preference
when the pt is:
- Requesting an ordered lesser potent pain medication.
Least to most potent pain medications are defined
as: acetaminophen < NSAID < tramadol < opioids
(morphine, oxycodone, hydromorphone).
- Requesting a lesser dose of the same medication IF
ORDERED.
- Requesting a less intrusive route of administration
if both routes are prescribed by the provider (PO <
IV).
11/01/24 22:22
Code Status As Directed
Resuscitation Status: Full Code
11/01/24 23:54
Acetaminophen [Tylenol] 650 mg PO Q4HPRN PRN
Dextrose 50%-Water [Dextrose 50% Syringe] 12.5 grams IV [id number] PRN
Glucagon [GlucaGen] 1 mg IM PRN PRN
Piperacillin/Tazo 3.375 Gram [Zosyn] 3.375 gram in 50 ml IV Q6H
Trazodone [Desyrel] 100 mg PO HSPRN PRN
VANCOMYCIN Pharmacy to Dose [VANCOCIN Pharmacy to Dose] 1 each Pharmacy To Prepare [Call Pharmacy To Prepare] 0 ml IV PER PROTOCOL
11/01/24 23:54
Consult Notification Routine
Specialty to Notify: Podiatry
PODIATRY CONSULT Routine
Consulting Provider: James Mcfadden
Was physician already notified: No
Reason for consult: right foot cellulitis
WOUND/OSTOMY CONSULT Routine
Reason for Consult: right foot wound
Activity As Directed
Activity Level: Out of Bed-Early Mobility
Bedside Glucose Monitoring As Directed
Frequency: AC&HS
Additional Instructions:: Change to q6h if pt on TPN, tube feeding or not eating
Intake/ Output As Directed
Frequency: Per unit guidelines
Pneumatic Compression Sleeves As Directed
Type: Thigh high
Vital Signs As Directed
Frequency: Per unit guidelines
Ot Eval And Treat Routine
Pt Eval And Treat Routine
Activity Level: As Tolerated
DX Deep Vein Thrombosis Video Routine
11/02/24 Breakfast
2200 calorie (18 carb) Diabetic
Basic Metabolic Panel IN AM
Complete Blood Count/No Diff IN AM
Levothyroxine [Synthroid] 75 mcg PO DAILY@0600
11/02/24 07:30
Insulin Aspart Corrective Low [Novolog Flexpen-Low Resistance] See Protocol SC AC
11/02/24 08:00
Insulin Aspart Pen [Novolog Flexpen] 15 units SC TID
11/02/24 18:00
Citalopram [Celexa] 20 mg PO QPM
Rosuvastatin Calcium [Crestor] 20 mg PO QPM
11/03/24 06:00
Basic Metabolic Panel IN AM
Complete Blood Count/No Diff IN AM
11/04/24 06:00
Basic Metabolic Panel IN AM
Complete Blood Count/No Diff IN AM
11/05/24 06:00
Basic Metabolic Panel IN AM
Complete Blood Count/No Diff IN AM
Abnormal Lab Results
11/01/24
16:47
RBC 3.75 L 10^6/uL
(4.70-6.10)
Hgb 11.7 L g/dL
(13.0-18.0)
Hct 34.6 L %
(39.0-52.0)
MCH 31.2 H pg
(27.0-31.0)
Plt Count 451 H 10^3/uL
(130-400)
Abs Immat Gran (auto) 0.1 H 10^3/uL
(0-0.05)
Absolute Neuts (auto) 8.3 H 10^3/uL
(1.4-6.5)
Absolute Lymphs (auto) 1.0 L 10^3/uL
(1.2-3.4)
Immature Gran % 0.9 H %
(0-0.5)
Neutrophils % 82.1 H %
(42.2-75.2)
Lymphocytes % 10.2 L %
(20.5-51.1)
BUN 25 H mg/dl
(9-20)
Creatinine 1.4 H mg/dL
(0.7-1.3)
Glucose 300 H mg/dl
(70-99)
Alkaline Phosphatase 181 H U/L
(38-126)
11/01/24 16:47
11/01/24 16:47
Vital Signs
Initial and Last Documented VS:
Initial Vital Signs
Temp Pulse Resp BP Pulse Ox
98.6 F 92 16 105/71 100
11/01/24 16:28 11/01/24 16:28 11/01/24 16:28 11/01/24 16:28 11/01/24 16:28
Last Documented Vital Signs
Temp Pulse Resp BP Pulse Ox
98.6 F 77 15 109/81 100
11/01/24 16:28 11/01/24 20:30 11/01/24 19:30 11/01/24 20:00 11/01/24 20:30
*Critical Care Note
Total Time (30-74mins, 75-104mins- exclusive of procedures): Not Applicable
Update Note
Update Note:
Patient to ED for eval of increasing weakness. Lives with son, sent to ED via EMS. Spoke with another son who reports patient has dementia although this has never been diagnosed. Son reports confusion for some time but unsure of when this first
appeared. He is unaware of the wound on patients right foot however states his father is diabetic and does not take care of self. No contact information is available for the son that patient lives with. Patient to eD disheveled. Strong foul odor
coming from right foot. Sock removed and revealed large amt of pus draining form plantar surface of foot. He is afebrile. WBC normal. BS 300 (unknown med compliance) WOund culture obtained. Vancomycin started. Will admit to hospitalist for his
foot infection
ED Attending Note
-
Portions of this chart may have been created with voice recognition software.� Occasional wrong word or��sound alike� substitutions may have occurred due to the inherent limitations of voice recognition software.
Discharge Plan
Departure
Patient Disposition: Admit
Date of Disposition: 11/01/24
Time of Disposition: 21:13
Presentation/result/management discussed w/ accepting MD/DO: Hospitalist
Condition: Fair
Covid-19: Not Applicable
Discharge Problem:
Cellulitis of foot, right
Interventions
Interventions:
*Risk Screen - Suicide Last Done: 11/01/24 16:28
*General Assessment Last Done: 11/01/24 16:28
*Neglect/Abuse Screening Last Done: 11/01/24 16:28
ED- Fall Risk Assessment Last Done: 11/01/24 19:23
*ED COVID-19 Vaccine History Last Done: 11/01/24 19:23
ED- Cardiac Assessment Last Done: 11/01/24 19:23
ED- Neurological Assessment Last Done: 11/01/24 19:23
ED- Pulmonary Assessment Last Done: 11/01/24 19:23
[2024-11-01 19:22] VITALS: BMI 20.3
[2024-11-01 20:00] VITALS: BP 109/81
[2024-11-01] MEDS: VANCOCIN 530 MG IV (20:41)
--- NOTE | 2024-11-01 21:51 | HPS.HSE ---
Addendum entered and electronically signed by Porfirio Mijares DO 11/01/24 23:31:
Patient seen and examined independently. Agree with findings and plan as set forth by DUNIA Paz.
Patient is a 74y M with PMH significant for hypertension and DM-II who presents to ED complaining of weakness, fatigue and R foot wound. Patient states that he '[id number]' 3 days ago. He denies any lightheadedness or dizziness at that
time. No chest pain, palpitations or dyspnea. When he fell he did not strike his head or lose consciousness. Patient at that time did note redness, swelling and wound on the R great toe. He denies any bleeding or discharge. Patient is not aware
of any injury or trauma to that foot. He has no pain and reports numbness in both feet due to chronic neuropathy.
Patient has felt weak and fatigued since that time. He notes that he fell again today - losing his balance and falling onto his back.
Ass:
R Foot Infection
DM-II with Neuropathy
Ambulatory Dysfunction
Benign Hypertension
BRIE
Anxiety / Depression
Hypothyroidism
Plan:
Admit for further evaluation and treatment.
Suspicious for osteomyelitis given appearance at R 1st MTP joint.
Chronic appearing ulceration on the plantar aspect with edema and erythema laterally.
IV abx with Vanco / Zosyn for now.
MRI for further evaluation of bony involvement.
Podiatry eval for additional recommendations.
Basal : bolus insulin regimen and adjust as needed.
Check A1C.
Hold antihypertensive medications acutely.
Original Note:
Family Physician
-
Family Physician: NOT KNOW UNKNOWN - PT DOES
Chief Complaint
-
Fall
Right foot infection
History of Present Illness
74-year-old with past medical history for type 2 diabetes, urinary tract infection, depression, hypothyroidism, hypertension, hyperlipidemia presented to us status post a fall at home .patient stated he felt lightheaded and lost balance and fell on
his back .denied hitting head on the floor .patient slipped and fell 3 days ago , as when he noticed the wound on his right plantar aspect of the foot.patient stated , it does not hurt at all .patient denied any headache, dizziness, syncope.
Patient denied any fever, chills, chest pain, short of breath. Patient denied any abdominal pain, nausea, vomiting, diarrhea patient denied dysuria hematuria.
Patient received a dose of vancomycin in ER, blood cultures and wound culture sent from ER. Admitting for further management
Medical History
Past Medical History
Past Medical History: Reports Other
Additional Past Medical History:
Depression
Type 2 diabetes
Hyperlipidemia
Hypertension
Hypothyroidism
Past Surgical History: Reports None
Social History
Tobacco: Smoker
Alcohol: Occasional
Drug: Marijuana
Personal: Single
Living: With Family
Family History
Family History: Not pertinent
Allergies / Home Medications
Allergies reflects when Allergies were last updated in [facility].
Home Medications with original date entered in [facility]
Allergy/Medication List:
Allergies
Allergy/AdvReac Type Severity Reaction Status Date / Time
No Known Allergies Allergy Verified 11/01/24 16:31
Home Medications
citalopram 20 mg tablet 20 mg PO QPM Depression 10/12/24
lisinopril 20 mg-hydrochlorothiazide 25 mg tablet 1 tab PO QPM Blood Pressure 10/12/24
rosuvastatin 20 mg tablet 20 mg PO QPM High Cholesterol 10/12/24
trazodone 100 mg tablet 100 mg PO HSPRN PRN sleep 10/12/24
clopidogrel 75 mg tablet 75 mg PO QPM 11/01/24
insulin aspart U-100 100 unit/mL (3 mL) subcutaneous pen (Novolog FlexPen U-100 Insulin aspart) 15 unit SC TID 11/01/24
insulin glargine 100 unit/mL (3 mL) subcutaneous pen (Lantus Solostar U-100 Insulin) 15 unit SC HS 11/01/24
levothyroxine 75 mcg tablet 75 mcg PO DAILY 11/01/24
metformin 1,000 mg tablet 1,000 mg PO QPM 11/01/24
Review of Systems
-
Constitutional: Reports No Symptoms
EENT: Reports No Symptoms
Respiratory: Reports No Symptoms
Cardiac: Reports No Symptoms
Abdomen/GI: Reports No Symptoms
: Reports No Symptoms
Musculoskeletal: Reports No Symptoms
Skin: Reports No Symptoms
Neurological: Reports Weakness
Endocrine: Reports No Symptoms
Hematologic/Lymphatic: Reports No Symptoms
Psych: Reports No Symptoms
Physical Exam
Vital Signs
Vital Signs
Temp Pulse Resp BP Pulse Ox
98.6 F 77 15 109/81 100
11/01/24 16:28 11/01/24 20:30 11/01/24 19:30 11/01/24 20:00 11/01/24 20:30
Physical Exam
General: Well Developed, Well Nourished and No Apparent Distress
HEENT: NormoCephalic, Moist mucous membranes and Atraumatic
Respiratory: Clear
Cardiac: S1/S2 and Regular Rhythm; No Murmur or Rub
GI: Soft, Non Tender, Non Distended and Normal Bowel Sounds; No Organomegaly
Rectal: Deferred by Provider
Musculoskeletal: No Clubbing and No Cyanosis
Skin: Other (right LE wound (plantar aspect of right foot))
Neuro: AO x 3 and Nonfocal/grossly intact
Psych: Calm
Laboratory Results
-
11/01/24 16:47
11/01/24 16:47
Laboratory Results
Lactic Acid 2.0 mmol/L (0.7-2.0) 11/01/24 19:37
Total Bilirubin 0.6 mg/dl (0.2-1.3) 11/01/24 16:47
AST 52 U/L (17-59) 11/01/24 16:47
ALT 42 U/L (0-50) 11/01/24 16:47
Alkaline Phosphatase 181 U/L (38-126) H 11/01/24 16:47
Data Reviewed
-
Lab Data: Labs Reviewed by me
Impression/Plan
-
# Right foot cellulitis/wound
-Foot x-ray pending
-Blood culture sent from ER
-Wound culture sent from ER
-IV Vanco continued
-Tylenol as needed for pain or fever
-podiatry consulted
Type 2 diabetes mellitus with hyperglycemia
-NovoLog 15 units 3 times a day
-Lantus 15 units at bedtime
-Sliding scale
-Hold metformin
#fall likely mechanical
-PT/OT consulted
#Essential hypertension
-Hold antihypertensives due to soft BPs and BRIE
#Hyperlipidemia
-Continue statin
# Acute kidney injury
-Creatinine 1.4
# Depression
-citalopram continued
# Hypothyroidism
-Levothyroxine continued
# Hyperlipidemia
-Statin continued
# Nicotine dependence
-Denied nicotine patch
# DVT prophylaxis
-SCDs
# CODE STATUS
-Full code
[2024-11-01 23:24] VITALS: BP 102/70
[2024-11-02] VITALS (13 sets, daily range): BP systolic 96–120; BP diastolic 61–85; PULSE 63; O2SAT 100; BMI 20.3
[2024-11-02] MEDS: ZOSYN 50 IV ×4 (01:00→18:05)
[2024-11-02 06:45] LABS: Hemoglobin 10.1 g/dL (13.0-18.0); Mean Corp Hgb Conc. 33.7 g/dL (33.0-37.0); Mean Corpuscular Hgb 31.8 pg (27.0-31.0); Mean Corpuscular Volume 94.3 fL (80.0-94.0); Mean Platelet Volume 9.8 fL (7.4-10.4); Platelet Count 416 10^3/uL (130-400); Red Blood Cell Count 3.18 10^6/uL (4.70-6.10); Red Cell Dist. Width 13.6 % (11.5-14.5); White Blood Cell Count 10.1 10^3/uL (4.8-10.8)
[2024-11-02 06:59] LABS: Blood Urea Nitrogen 26 mg/dl (9-20); Carbon Dioxide 28 mmol/L (22-30); Chloride 100 mmol/L (98-107); Estimated Creatinine Clearance 42 ml/min; Glucose 276 mg/dl (70-99); Sodium 136 mmol/L (135-145); eGFR 52.41
[2024-11-02] MEDS: SYNTHROID 75 MCG PO (08:09)
--- NOTE | 2024-11-02 09:54 | PHA.VAN.IN ---
Assessment
- Assessment
Renal Function: Appears elevated from baseline (SCR 1.4 vs 0.8-01 Dec 2023)
Concomitant Antimicrobials: piperacillin/tazobactam
Plan
- Plan
Initial / Loading Dose: 1500mg - 11/01 20:41
Maintenance Regimen: dosing by level
Monitoring: random 11/03 06
Pharmacokinetics Vancomycin I
- -
Patient Age: 74
Patient Sex: Male
Vancomycin Day #: 1
Indication: Skin And Soft Tissue
Requesting Provider: Laurie Rocha
Pertinent Antimicrobial Allergies:
NKDA
Height / Weight:
Height 5 ft 11 in
Actual Weight 65.9 kg
Pertinent Past Medical History: DM II
- Vital Signs / Lab Results
Temp Pulse Resp BP Pulse Ox
98.1 F 65 15 103/77 100
11/02/24 03:27 11/01/24 20:45 11/01/24 19:30 11/02/24 09:00 11/02/24 08:20
Lab Results - Hematology
11/01/24 11/02/24
16:47 06:26
WBC 10.1 10.1
Lab Results - Chemistry
11/01/24 11/02/24
16:47 06:26
BUN 25 H 26 H
Creatinine 1.4 H 1.4 H
Estimated Creat Clear 42
Albumin 3.5
11/01/24
19:37
Lactic Acid 2.0
Microbiology Results
11/01/24 19:32 Gram Stain - Preliminary
Foot - Left
[2024-11-02 10:30] LABS: Glucose - Point of Care 218 mg/dl (70-99)
--- NOTE | 2024-11-02 10:32 | WOUNDNOTE ---
LEGS AND R FOOT
--- NOTE | 2024-11-02 10:37 | WOUNDNOTE ---
WON RN note: Patient admitted with R foot cellulitis.
See H&P for complete history. Lives with son Alexander.
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
Wound Location and type/assessment: Patient admitted with: R plantar foot, 1st met head diabetic ulcer. Plantar foot with large callus and small open ulcer within, depth 0.5cm, did not palpate bone. Soft wet eschar extends toward base of great toe,
foul smelling with purulent drainage. Foot warm with erythema, faint palpable pulse. Wound culture final pending and MRI results pending. Podiatry on consult. L foot with palpable pulse. Heels are intact, skin on legs very dry. L lateral leg and
great toe with intact scabs, suspect from abrasions. Patient seen by PT in ER earlier when attempted to see patient. Assessed sacrum and buttocks while PT cleaned patient up for incontinence of urine. Both have mild MASD and blanchable redness.
Appetite: Fair, recent 30lb weight loss states patient, nurse put in dietary consult.
Pressure redistribution devices in place: On Versa care air bed, able to turn self in bed, pillow under calves.
Plan: Local wound care done, will defer to Dr. Mcfadden for further wound care orders. Requested Dr. Miller TT me when seeing patient to get a photo of R foot ulcer. Will confirm orders with hospitalist and updated nurse.
Updated care plan and will follow as needed.
Note to case management of equipment requested for discharge: VN if going home.
Recommend follow up at wound care center upon discharge or [facility].
[2024-11-02] MEDS: NOVOLOG FLEXPEN 15 UNITS SC ×2 (10:44→18:48)
[2024-11-02] MEDS: NOVOLOG FLEXPEN-LOW RESISTANCE 2 UNITS SC (10:45)
--- NOTE | 2024-11-02 11:00 | PTCARENOTE ---
Addendum entered by Kitty Barclay RN 11/02/24 11:34:
heel wound incorrectly documented. wound is located on right lateral foot.
Original Note:
pt admitted from ED AOx3, denies pain. LCTA B/L on RA, distant heart sounds. abd soft NT, hyperactive BSx4. Pt eating breakfast. Insulin admin as ordered. WOC in to see pt R/T right heel. Skin intact with exception of large right post. heel wound.
weak PP b/L, no edema. Pt. reports he lives with his son and IDL. CB in reach. pt oriented to surroundings.
[2024-11-02] MEDS: VANCOCIN 150 IV (11:41)
--- NOTE | 2024-11-02 12:50 | W.PN.HOSP.TC ---
Today's Communication/Plan
-
abx
f/u cultures
f/u podiatry recs
pt/ot
Assessment / Plan
Assessment / Plan
Physical Exam
General: Well Developed, Well Nourished and No Apparent Distress
HEENT: NormoCephalic, Moist mucous membranes and Atraumatic
Respiratory: Clear
Cardiac: S1/S2 and Regular Rhythm; No Murmur or Rub
GI: Soft, Non Tender, Non Distended and Normal Bowel Sounds; No Organomegaly
Rectal: Deferred by Provider
Musculoskeletal: No Clubbing and No Cyanosis
Skin: Other (right LE wound (plantar aspect of right foot))
Neuro: AO x 3 and Nonfocal/grossly intact
Psych: Calm
# Right foot cellulitis/wound
-Edema versus loculated fluid in the plantar medial soft tissues adjacent to the base of the first metatarsal measuring approximately 2.8 x 1.2 x 1.5 cm: phlegmonous changes versus a developing abscess
-F/u Podiatry recs
-F/u Blood and wound culture
-F/u MRSA PCR
-IV Vanc/Zosyn continued
-Tylenol as needed for pain or fever
-F/u XR Left foot as was non weight bearing prior to hospital visit
Type 2 diabetes mellitus with hyperglycemia
-NovoLog 15 units 3 times a day
-Lantus 15 units at bedtime
-Sliding scale
-Hold metformin
#fall likely mechanical
-PT/OT consulted
#Essential hypertension
-Hold antihypertensives due to soft BPs and BRIE
#Hyperlipidemia
-Continue statin
# Acute kidney injury
-Creatinine 1.4
-monitor with resuscitation
# Depression
-citalopram continued
# Hypothyroidism
-Levothyroxine continued
# Hyperlipidemia
-Statin continued
# Nicotine dependence
-Denied nicotine patch
# DVT prophylaxis
-HSQ
# CODE STATUS
-Full code
Total time spent on today's encounter was 51 minutes which included time spent in counseling the patient/family regarding diagnosis and treatment plan as listed above, goals of care, and symptom management. Case was discussed with nursing staff,
specialists, and care coordinators/case management. All labs and imaging personally reviewed by me. Remainder the time spent in detailed review of previous records, lab data, imaging, and other medical provider documentation.
Anticipated Discharge: > 48 hours
Subjective/Interval History
-
Date of Service: November 02, 2024
No acute events overnight, cannot bear weight on the left foot as well
Objective Data
-
Labs:
Laboratory Results
11/02/24
06:26
WBC 10.1
Hgb 10.1 L
Hct 30.0 L
Plt Count 416 H
Sodium 136
Potassium 4.0
Chloride 100
Carbon Dioxide 28
BUN 26 H
Creatinine 1.4 H
Glucose 276 H
Calcium 9.0
Vital Signs:
Vital Signs
Temp Pulse Resp BP Pulse Ox
98.1 F 57 16 101/64 100
11/02/24 10:05 11/02/24 10:05 11/02/24 10:05 11/02/24 10:05 11/02/24 11:06
Review of Systems
-
History Source: Patient
All other systems: Not reviewed unless documented
Data Reviewed
-
Total Time Spent with Patient (in minutes): 41
Diagnostic Radiology: Report Reviewed by me
MRI: Report Reviewed by me
Labs: Labs Reviewed by me
[2024-11-02] MEDS: LR 1000 IV (13:18)
[2024-11-02] MEDS: NOVOLOG FLEXPEN-LOW RESISTANCE 3 UNITS SC (13:18)
[2024-11-02 13:22] LABS: Glucose - Point of Care 266 mg/dl (70-99)
[2024-11-02] MEDS: HEPARIN 5000 UNITS SC (16:08)
[2024-11-02] MEDS: NOVOLOG FLEXPEN-LOW RESISTANCE SC (16:15)
--- NOTE | 2024-11-02 16:20 | CM ---
Patient seen bedside.
IA completed.
Patient lives with son and daughter in law and 3 grandchildren in a 2 story home with 5 steps to enter.
Patient denies difficulty with stairs/
Does not drive any more.
Denies hx VN or skilled rehab.
Independent prior to admission without assistive devices.
CM will follow for d/c needs.
PCP: Dr Erickson
Pharmacy: [facility] [address]
Plan: home, follow for d/c needs.
[2024-11-02 16:25] LABS: Glucose - Point of Care 95 mg/dl (70-99)
[2024-11-02] MEDS: CRESTOR 20 MG PO (18:05)
[2024-11-02] MEDS: CELEXA 20 MG PO (18:05)
--- NOTE | 2024-11-02 18:49 | PTCARENOTE ---
dressing changed with podiatry, plan for OR for I&d tomorrow night
[2024-11-02 18:57] LABS: Glucose - Point of Care 131 mg/dl (70-99)
--- NOTE | 2024-11-02 20:29 | W.CS.POD ---
Consult Summary - Podiatry
-
Patient is a 74y M with PMH significant for hypertension and DM-II who presents to ED complaining of weakness, fatigue and R foot wound. Patient states that he 'hlgauqj-[id number]-[id number]' 3 days ago. He lives with his son , he does not know how he
developed this wound to Rt foot, Rt foot wound with purulent drainage and necrotic ulcer, HE is on IV abx, improved WBC count, he is in no acute distress, no Chest pain or SOB.
Reviewed PMH, meds and allergies
Rt foot with severe pes cavus deformity
Rt 1st Submet ulceration with purulent drainage and necrotic skin noted, Ulcer probing to deep tissues. Presence of foul odor noted
Xrays with no osteomyelitic changes
MRI with no abscess or any osteomyelitis
A/P; Rt foot cellultis/abscess
Rt diabetic foot ulcer
Severe foot deformity - pes cavus foot
Plan ; Cont IV abx
Will schedule for I & d Rt foot
Will order non invasive vascular studies and request vascular surgery consult .
Podiatry will follow
Pt NPO after breakfast 11/03/24 for Rt foot I & d
Discussed with patient about the plan, all risks, complications discussed
no guarantees given to save the limb or life
PT agrees to proceed for the I &d
Medical clearance by hosp service
[2024-11-02 21:33] LABS: Glucose - Point of Care 103 mg/dl (70-99)
[2024-11-02] MEDS: LANTUS 0.15 UNITS SC (22:03)
[2024-11-02] MEDS: NOVOLOG FLEXPEN SC (22:36)
[2024-11-03] VITALS (8 sets, daily range): BP systolic 91–114; BP diastolic 57–67
[2024-11-03] MEDS: HEPARIN 5000 UNITS SC ×4 (00:04→23:16)
[2024-11-03] MEDS: ZOSYN 50 IV ×5 (00:04→23:16)
[2024-11-03] MEDS: LR 1000 IV ×2 (03:38→23:16)
[2024-11-03] MEDS: SYNTHROID 75 MCG PO (06:02)
[2024-11-03 08:00] LABS: Glucose - Point of Care 133 mg/dl (70-99)
--- NOTE | 2024-11-03 08:03 | WOUNDNOTE ---
R GREAT TOE PLANTAR, TAKEN BY RN
--- NOTE | 2024-11-03 08:05 | WOUNDNOTE ---
R MEDIAL FOOT/1ST MET HEAD, TAKEN BY RN
--- NOTE | 2024-11-03 08:07 | WOUNDNOTE ---
EDMOND RN NOTE: Reviewed Podiatry note, for I&D later today of R foot, vascular consulted. Will assist as needed.
[2024-11-03 08:35] LABS: Hematocrit 30.6 % (39.0-52.0); Mean Corp Hgb Conc. 32.7 g/dL (33.0-37.0); Mean Corpuscular Hgb 30.8 pg (27.0-31.0); Mean Corpuscular Volume 94.2 fL (80.0-94.0); Platelet Count 450 10^3/uL (130-400); Red Blood Cell Count 3.25 10^6/uL (4.70-6.10); Red Cell Dist. Width 13.5 % (11.5-14.5); White Blood Cell Count 11.6 10^3/uL (4.8-10.8)
[2024-11-03 08:52] LABS: Vancomycin Random 12.8 ug/ml
[2024-11-03] MEDS: HYDROPHOR 1 APPLIC TOPICAL (08:57)
[2024-11-03 08:58] LABS: Blood Urea Nitrogen 24 mg/dl (9-20); Calcium 9.1 mg/dl (8.4-10.2); Carbon Dioxide 26 mmol/L (22-30); Chloride 101 mmol/L (98-107); Estimated Creatinine Clearance 42 ml/min; Glucose 136 mg/dl (70-99); Potassium 4.3 mmol/L (3.5-5.1); Sodium 137 mmol/L (135-145); eGFR 52.41
[2024-11-03] MEDS: NOVOLOG FLEXPEN-LOW RESISTANCE SC ×3 (09:30→17:32)
[2024-11-03] MEDS: NOVOLOG FLEXPEN 15 UNITS SC (09:32)
--- NOTE | 2024-11-03 11:18 | CM ---
Spoke with patient bedside.
Patient agreeable to Skilled rehab once medically stable.
Patient agreeable to CM speaking with sons, Alexander and Pete.
Spoke with son Alexander, agreeable to skilled rehab in the [facility] and he provided son Bora phone# [phone] and gave permission to add him as a contact.
Spoke with admissions and secondary contact info provided.
Spoke with Pete via phone (patient lives with Pete) and he is agreeable to skilled rehab in the [facility].
Referrals placed.
Plan: skilled rehab once medically stable
[2024-11-03 13:56] LABS: Glucose - Point of Care 116 mg/dl (70-99)
--- NOTE | 2024-11-03 14:07 | W.PN.HOSP.TC ---
Today's Communication/Plan
-
I&D by Podiatry
F/u cultures
cont abx
vascular studies, vascular consult
Assessment / Plan
Assessment / Plan
Physical Exam
General: Well Developed, Well Nourished and No Apparent Distress
HEENT: NormoCephalic, Moist mucous membranes and Atraumatic
Respiratory: Clear
Cardiac: S1/S2 and Regular Rhythm; No Murmur or Rub
GI: Soft, Non Tender, Non Distended and Normal Bowel Sounds; No Organomegaly
Rectal: Deferred by Provider
Musculoskeletal: No Clubbing and No Cyanosis
Skin: Other (right LE wound (plantar aspect of right foot))
Neuro: AO x 3 and Nonfocal/grossly intact
Psych: Calm
# Right foot cellulitis/wound/Abscess
-Edema versus loculated fluid in the plantar medial soft tissues adjacent to the base of the first metatarsal measuring approximately 2.8 x 1.2 x 1.5 cm: phlegmonous changes versus a developing abscess
-F/u Podiatry recs
-F/u Blood and wound culture
-F/u MRSA PCR
-I&D today
-IV Vanc/Zosyn continued - most likely can switch to cefazolin as MSSA pos once cultures finalize
-Tylenol as needed for pain or fever
�Noninvasive studies, vascular consulted
-Patient medically optimized for surgical intervention; Patient is at 6% risk of Major Cardiac Event with low risk procedure
Type 2 diabetes mellitus with hyperglycemia
-NovoLog 15 units 3 times a day
-Lantus 15 units at bedtime
-Sliding scale
-Hold metformin
#fall likely mechanical
-PT/OT consulted
#Essential hypertension
-Hold antihypertensives due to soft BPs and BRIE
#Hyperlipidemia
-Continue statin
# Acute kidney injury
-Creatinine 1.4
-monitor with resuscitation
# Depression
-citalopram continued
# Hypothyroidism
-Levothyroxine continued
# Hyperlipidemia
-Statin continued
# Nicotine dependence
-Denied nicotine patch
# DVT prophylaxis
-HSQ
# CODE STATUS
-Full code
Total time spent on today's encounter was 52 minutes which included time spent in counseling the patient/family regarding diagnosis and treatment plan as listed above, goals of care, and symptom management. Case was discussed with nursing staff,
specialists, and care coordinators/case management. All labs and imaging personally reviewed by me. Remainder the time spent in detailed review of previous records, lab data, imaging, and other medical provider documentation.
Anticipated Discharge: > 48 hours
Subjective/Interval History
-
Date of Service: November 03, 2024
No acute events
Objective Data
-
Labs:
Laboratory Results
11/03/24
08:03
WBC 11.6 H
Hgb 10.0 L
Hct 30.6 L
Plt Count 450 H
Sodium 137
Potassium 4.3
Chloride 101
Carbon Dioxide 26
BUN 24 H
Creatinine 1.4 H
Glucose 136 H
Calcium 9.1
Vital Signs:
Vital Signs
Temp Pulse Resp BP Pulse Ox
98.6 F 64 12 101/62 100
11/03/24 07:00 11/03/24 07:00 11/03/24 07:00 11/03/24 07:00 11/03/24 07:00
I&O
11/02/24 11/03/24 11/04/24
06:59 06:59 06:59
Intake Total 1285 / 1285
Output Total 500 / 500 150 / 150
Balance 785 / 785 -150 / -150
Review of Systems
-
History Source: Patient
All other systems: Not reviewed unless documented
Physical Exam
-
General: No Apparent Distress
Respiratory: Clear to Auscultation
Cardiac: S1/S2
GI: Soft, Nontender, Nondistended and Normal Bowel Sounds
Musculoskeletal: No Edema
Neuro: Awake and Alert
Psych: Calm
Data Reviewed
-
Total Time Spent with Patient (in minutes): 41
Diagnostic Radiology: Report Reviewed by me
MRI: Report Reviewed by me
Labs: Labs Reviewed by me
--- NOTE | 2024-11-03 14:58 | PHA.VAN.FU ---
Vancomycin Assessment / Plan
- Assessment
Renal Function: Stable
Concomitant Antimicrobials: piperacillin/tazobactam
- Assessment - Therapeutic Drug Monitoring
Random Level: 12.8 - drawn ~20H after previous dose of 750mg
- Dosing Plan
Dosing by Level: Re-dose today (Vanc 750mg)
- Monitoring Plan
No level(s) ordered at this time: f/u post I&D today - consider random level later tomorrow AM
- Follow Up
Pharmacy will continue to follow.
Vancomycin Follow UP
- -
Patient Age: 74
Patient Sex: Male
Vancomycin Day #: 2
Indication: Skin And Soft Tissue
Requesting Provider: Laurie Rocha
Pertinent Antimicrobial Allergies:
NKDA
Height / Weight:
Height 5 ft 11 in
Actual Weight 65.9 kg
Pertinent Past Medical History: DM II
- Vital Signs / Lab Results
Temp Pulse Resp BP Pulse Ox
98.6 F 64 12 101/62 100
11/03/24 07:00 11/03/24 07:00 11/03/24 07:00 11/03/24 07:00 11/03/24 13:52
Lab Results - Hematology
11/01/24 11/02/24 11/03/24
16:47 06:26 08:03
WBC 10.1 10.1 11.6 H
Lab Results - Chemistry
11/01/24 11/02/24 11/03/24
16:47 06:26 08:03
BUN 25 H 26 H 24 H
Creatinine 1.4 H 1.4 H 1.4 H
Estimated Creat Clear 42 42
Albumin 3.5
11/01/24
19:37
Lactic Acid 2.0
Microbiology Results
11/01/24 19:32 Wound Culture - Final
Foot - Left S aureus-Methicillin Sensitive
Gram Stain - Final
11/01/24 19:33 Blood Culture - Preliminary
Blood/Venous No Growth in 24 hours- Final report to follow
11/01/24 19:32 Blood Culture - Preliminary
Blood/Venous No Growth in 24 hours- Final report to follow
Therapeutic Drug Monitoring
Random Vancomycin 12.8 ug/ml 11/03/24 08:02
[2024-11-03] MEDS: VANCOCIN 150 IV (15:35)
[2024-11-03 17:25] LABS: Glucose - Point of Care 141 mg/dl (70-99)
--- NOTE | 2024-11-03 17:31 | PTCARENOTE ---
report called, and pt transferred to OR. sent chart and zosyn.
[2024-11-03] MEDS: NOVOLOG FLEXPEN SC (17:33)
--- NOTE | 2024-11-03 18:55 | W.SUR.POST ---
Addendum entered and electronically signed by James Mcfadden DPM 11/12/24 15:58:
Addendum to the Operative procedure : By using #15 blade, an excisional debridement of all necrotic tissue from Rt plantar aspect under hallux and submet 1st ulcer site.
Original Note:
Surgical Immediate Post Op
Note
Pre Op Diagnosis: Right foot abscess/necrotic infected ulcer
Post Op Diagnosis: Same as above
Procedure Performed: Rt foot I & D debridement of necrotic tissue
Primary Surgeon: Dr. Bogdan DPM
Secondary Surgeons: None
Anesthesia: MAc with local block
Estimated Blood Loss: 2cc's
Fluids: none
Drains/Shunts: no
Specimens/Cultures: Intra op wound cultures aerobic and anaerobic
Doppler/Duplex/Angio (Y/N): no
Complications: None
Operative Findings: about 3cc of Deep tissue purulence drained, Exposed Rt 1st met head at the plantar ulcer site, very scant bleeding noted.
[2024-11-03 18:59] LABS: Glucose - Point of Care 136 mg/dl (70-99)
--- NOTE | 2024-11-03 19:40 | PTCARENOTE ---
Pt received from PACU in bed. AAOx1-2 (place/time). Confused/vague conversation. Full physical assessment (refer to worklist). R foot elevated on 2 pillows, dressing c/d/i. Reports no pain. LR at 75 mL infusing via #20 LFA. VSS. Call [facility]
within reach.
[2024-11-03] MEDS: LANTUS 0.15 UNITS SC (21:33)
[2024-11-03] MEDS: CELEXA 20 MG PO (21:33)
[2024-11-03] MEDS: CRESTOR 20 MG PO (21:33)
[2024-11-03 21:46] LABS: Glucose - Point of Care 132 mg/dl (70-99)
[2024-11-04 03:00] VITALS: BP 109/63
[2024-11-04] MEDS: ZOSYN 50 IV (05:56)
[2024-11-04] MEDS: SYNTHROID 75 MCG PO (05:56)
[2024-11-04 07:04] LABS: Hemoglobin 9.5 g/dL (13.0-18.0); Mean Corp Hgb Conc. 32.8 g/dL (33.0-37.0); Mean Corpuscular Hgb 31.4 pg (27.0-31.0); Mean Corpuscular Volume 95.7 fL (80.0-94.0); Mean Platelet Volume 9.8 fL (7.4-10.4); Platelet Count 448 10^3/uL (130-400); Red Blood Cell Count 3.03 10^6/uL (4.70-6.10); Red Cell Dist. Width 13.4 % (11.5-14.5); White Blood Cell Count 12.4 10^3/uL (4.8-10.8)
[2024-11-04 07:30] LABS: ALT (SGPT) 22 U/L (0-50); AST (SGOT) 21 U/L (17-59); Albumin 2.6 g/dl (3.5-5.0); Alkaline Phosphatase 135 U/L (38-126); Blood Urea Nitrogen 21 mg/dl (9-20); Calcium 8.9 mg/dl (8.4-10.2); Carbon Dioxide 23 mmol/L (22-30); Chloride 101 mmol/L (98-107); Estimated Creatinine Clearance 37 ml/min; Glucose 113 mg/dl (70-99); Potassium 3.6 mmol/L (3.5-5.1); Sodium 137 mmol/L (135-145); Total Bilirubin 0.5 mg/dl (0.2-1.3); eGFR 44.65
[2024-11-04 07:31] VITALS: BP 152/135
[2024-11-04 07:32] LABS: Glucose - Point of Care 121 mg/dl (70-99)
[2024-11-04 08:10] VITALS: BP 102/58
[2024-11-04] MEDS: NOVOLOG FLEXPEN-LOW RESISTANCE SC ×3 (09:21→17:12)
[2024-11-04] MEDS: NOVOLOG FLEXPEN 15 UNITS SC ×3 (09:22→17:11)
[2024-11-04] MEDS: HYDROPHOR 1 APPLIC TOPICAL (09:25)
[2024-11-04] MEDS: HEPARIN 5000 UNITS SC ×2 (09:25→17:11)
--- NOTE | 2024-11-04 11:40 | W.PN.POD ---
Today's Communication
Today's Communication
Will wait for vascular surgery input for further definitive surgical plan by podiatry
Assessment / Plan
-
A/P : Diabetic Rt foot necrotic ulcer with exposed rt 1st met head
S/P : Rt foot I & D with debridement of necrotic tissue POD #1
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
Plan : Cont IV abx
Reviewed PATRICK'S shows diminished Rt L/E PATRICK's to 0.88
Discussed with patient about possibly needing bone resection since loss of soft tissue and exposed 1st met head. I do not know if he understands completely, will talk to his son .
Requested vascular surgery evaluation and asses healing potential after partial 1st ray resection
Subjective
Chief Complaint
Rt foot necrotic ulcer.
Subjective
Patient seen at bedside, doing fine, denies any new complaints, no pain in Rt foot/leg, no strike through bleeding RT foot dressings.
Objective
Temp Pulse Resp BP Pulse Ox
98.7 F 66 15 102/58 97
11/04/24 08:10 11/04/24 08:10 11/04/24 08:10 11/04/24 08:10 11/04/24 08:10
11/04/24 06:47
11/04/24 06:46
Vital Signs and Lab results were reviewed.
Rt foot non palpable pedal pulses.
Rt foot plantar aspect surgically drained site submet 1st with large soft tissue loss, no purulence, no foul odor noted. . Fibrotic ulcer at plantar aspect of the Rt hallux with deep tissue loss /exposed tendons . no new areas of any necrotic tissue
noted. No erythema, Rt hallux with minimal dusky discoloration
--- NOTE | 2024-11-04 11:55 | CON.VAS ---
Documented by User: DUNIA Pedro 11/04/24 12:10
Consultation
Consultation Request
Performing Provider: Lester
Reason for Consultation: Nonhealing right toe and plantar wound
Medical History
-
Chief Complaint: Right foot pain
History of Present Illness:
74-year-old male presents to the ED on 11/01/2024 after a fall. Admitted for infected appearing right foot wound.
Past Medical History
Past Medical History: HTN, Hypercholesterolemia, Hypothyroidism, NIDDM and Psychiatric
Social History
Tobacco: Smoker
Alcohol: Daily
Personal:
Living: With Family
Family History
Family History: Reviewed & Not Pertinent
Allergies / Home Medications
Allergy/AdvReac Type Severity Reaction Status Date / Time
No Known Allergies Allergy Verified 11/01/24 16:31
�Medication �Instructions �Recorded �Confirmed �Type
citalopram 20 mg tablet 20 mg PO QPM Depression 10/12/24 11/01/24 History
lisinopril 20 1 tab PO QPM Blood Pressure 10/12/24 11/01/24 History
mg-hydrochlorothiazide 25 mg tablet
rosuvastatin 20 mg tablet 20 mg PO QPM High Cholesterol 10/12/24 11/01/24 History
trazodone 100 mg tablet 100 mg PO HSPRN PRN sleep 10/12/24 11/01/24 History
clopidogrel 75 mg tablet 75 mg PO QPM Blood Clot 11/01/24 11/01/24 History
Prevention/Tx
insulin aspart U-100 100 unit/mL 15 unit SC TID Diabetes 11/01/24 11/01/24 History
(3 mL) subcutaneous pen (Novolog
FlexPen U-100 Insulin aspart)
insulin glargine 100 unit/mL (3 15 unit SC HS Diabetes 11/01/24 11/01/24 History
mL) subcutaneous pen (Lantus
Solostar U-100 Insulin)
levothyroxine 75 mcg tablet 75 mcg PO DAILY Thyroid 11/01/24 11/01/24 History
metformin 1,000 mg tablet 1,000 mg PO QPM Diabetes 11/01/24 11/01/24 History
Physical Exam
Vital Signs
Temp Pulse Resp BP Pulse Ox
98.7 F 66 15 102/58 97
11/04/24 08:10 11/04/24 08:10 11/04/24 08:10 11/04/24 08:10 11/04/24 08:10
Lab Results
11/04/24 06:47
11/04/24 06:46

Documented by User: [email or web address] Sam 11/04/24 13:30
Medical History
-
History of Present Illness:
74-year-old male presents to the ED on 11/01/2024 after a fall. Admitted for infected appearing right foot wound. Other past medical history insulin-dependent diabetes, ambulatory dysfunction, hypertension, BRIE, anxiety/depression, hypothyroidism,
possible dementia, alcohol abuse, smoker. Was admitted last month for BRIE and UTI. Since this admission podiatry I&D right foot necrotic tissue. Vascular consult for PAD evaluation.
Patient seen at bedside this a.m. Patient unsure of home medications. Unsure of past medical history. Plavix is listed as a home med but patient is unaware if he is on this or why. I called his pharmacy who confirmed the patient feels this
medication from his PCP. I tried calling his PCP multiple times with no response.
+2 palpable femoral pulses bilaterally, +2 palpable pop pulses bilaterally, +2 palpable PT pulses bilaterally, +2 palpable left DP, nonpalpable right DP pulse.
Images of wound below. Patient is unaware if he has ever had any history of wounds that are hard to heal. Patient does not think he has ever had stenting or ballooning done in his legs or his heart. Patient does not think he has a family history
of aneurysms. Patient states he does have pain when he walks but is unsure what the pain feels like or where it is located. He denies pain at night, pain in his feet, cramping in his calfs. He does state he can walk through the grocery store but
occasionally has to rest but he is unsure why he has to rest. He is unsure if it is pain related. Patient states he does not see a spice fumigator and is unaware of his history of BRIE.
Right foot:
Lower extremity ultrasound:1. Right lower extremity: PATRICK 0.88 consistent with mild arterial insufficiency. TBI not performed secondary to dressing in place. Multiphasic waveforms from common femoral through popliteal artery with no velocity
elevation to suggest any significant stenosis. Continuous Doppler waveforms at the dorsalis pedis and posterior tibial arteries are monophasic, findings suggestive of infrapopliteal artery disease.
Review of Systems
-
Unable to obtain full review of systems at this time due to: Dementia (??)
History Source: Patient
All other systems: Negative unless noted
Physical Exam
Physical Exam
General: No Apparent Distress
HEENT: Normocephalic and Atraumatic
Respiratory: Non Labored Respirations
Cardiac: Negative JVD
GI: Soft, Non Tender and Non Distended
Musculoskeletal: No Clubbing, No Cyanosis and No Edema
Skin: Warm and Other (See images above)
Neuro: Awake, Alert and Oriented (Person and place, answers to situation change)
Psych: Calm
Pulses: Bilateral Femoral: +2, Bilateral Popliteal: +2, Left Dorsalis Pedis: +2, Right Dorsalis Pedis: Doppler and Bilateral Posterior Tibial: +2
Assessment / Plan
-
74-year-old male here for right foot abscess which was I&D by podiatry yesterday
Patient is a poor historian, questionable history, on Plavix unsure why
Patient unsure if he has claudication, unsure if he has ever had history of issues healing wounds
Hemoglobin A1c 14.8 last month
Plan:
-Will discuss with Dr. Batista
Data Reviewed
-
Ultrasound: Discussed with Patient
Labs: Labs Reviewed by me
[2024-11-04 12:28] LABS: Glucose - Point of Care 128 mg/dl (70-99)
[2024-11-04] MEDS: ANCEF 10 IV ×2 (13:05→23:48)
[2024-11-04] MEDS: LR 1000 IV (13:05)
--- NOTE | 2024-11-04 13:44 | CM ---
S/P debridement.
Vascular and podiatry following.
IV anbx continued.
PT/OT recommending skilled rehab, referrals sent.
Plan: skilled rehab once medically stable.
--- NOTE | 2024-11-04 14:00 | W.PN.HOSP.TC ---
Today's Communication/Plan
-
Switch to cefazolin
Follow-up cultures
Vascular consulted
Follow-up podiatry recs
Assessment / Plan
Assessment / Plan
Physical Exam
General: Well Developed, Well Nourished and No Apparent Distress
HEENT: NormoCephalic, Moist mucous membranes and Atraumatic
Respiratory: Clear
Cardiac: S1/S2 and Regular Rhythm; No Murmur or Rub
GI: Soft, Non Tender, Non Distended and Normal Bowel Sounds; No Organomegaly
Rectal: Deferred by Provider
Musculoskeletal: No Clubbing and No Cyanosis
Skin: Other (right LE wound (plantar aspect of right foot))
Neuro: AO x 3 and Nonfocal/grossly intact
Psych: Calm
# Right foot cellulitis/wound/Abscess
-Edema versus loculated fluid in the plantar medial soft tissues adjacent to the base of the first metatarsal measuring approximately 2.8 x 1.2 x 1.5 cm: phlegmonous changes versus a developing abscess
-F/u Podiatry recs
-F/u Blood no growth today; wound culture MSSA
-F/u MRSA PCR negative
� Switch to cefazolin
-I&D 11/03
-Tylenol as needed for pain or fever
�Noninvasive studies, vascular consulted
#BRIE
� Stop vancomycin
� Start back IV fluids
� Avoid nephrotoxic agents
Type 2 diabetes mellitus with hyperglycemia
-NovoLog 15 units 3 times a day
-Lantus 15 units at bedtime
-Sliding scale
-Hold metformin
#fall likely mechanical
-PT/OT consulted
#Essential hypertension
-Hold antihypertensives due to soft BPs and BRIE
#Hyperlipidemia
-Continue statin
# Depression
-citalopram continued
# Hypothyroidism
-Levothyroxine continued
# Hyperlipidemia
-Statin continued
# Nicotine dependence
-Denied nicotine patch
# DVT prophylaxis
-HSQ
# CODE STATUS
-Full code
Total time spent on today's encounter was 55 minutes which included time spent in counseling the patient/family regarding diagnosis and treatment plan as listed above, goals of care, and symptom management. Case was discussed with nursing staff,
specialists, and care coordinators/case management. All labs and imaging personally reviewed by me. Remainder the time spent in detailed review of previous records, lab data, imaging, and other medical provider documentation.
Anticipated Discharge: > 48 hours
Subjective/Interval History
-
Date of Service: November 04, 2024
I&D yesterday, continue antibiotics
Objective Data
-
Labs:
Laboratory Results
11/04/24 11/04/24
06:46 06:47
WBC 12.4 H
Hgb 9.5 L
Hct 29.0 L
Plt Count 448 H
Sodium 137
Potassium 3.6
Chloride 101
Carbon Dioxide 23
BUN 21 H
Creatinine 1.6 H
Glucose 113 H
Calcium 8.9
Total Bilirubin 0.5
AST 21
ALT 22
Alkaline Phosphatase 135 H
Vital Signs:
Vital Signs
Temp Pulse Resp BP Pulse Ox
98.7 F 66 15 102/58 97
11/04/24 08:10 11/04/24 08:10 11/04/24 08:10 11/04/24 08:10 11/04/24 08:10
I&O
11/03/24 11/04/24 11/05/24
06:59 06:59 06:59
Intake Total 1285 / 1285 1405 / 1405 960 / 960
Output Total 500 / 500 325 / 325
Balance 785 / 785 1080 / 1080 960 / 960
Review of Systems
-
History Source: Patient
All other systems: Not reviewed unless documented
Data Reviewed
-
Total Time Spent with Patient (in minutes): 41
Diagnostic Radiology: Report Reviewed by me
MRI: Report Reviewed by me
Labs: Labs Reviewed by me
[2024-11-04 15:14] VITALS: BP 107/68
--- NOTE | 2024-11-04 15:58 | W.CON.NEPH ---
Consultation
-
Date/Time Consultation Requested: 11/04/2024 3:30 PM
Date/Time Consultation Performed: 11/04/2024 3:30 PM
Requesting Provider: Dr. Batista
Performing Provider: Dr. Dinh
Reason for Consultation: Chronic kidney disease stage IIIb
Medical History
-
Chief Complaint: Chronic kidney disease stage IIIb
History of Present Illness:
The patient is a 74-year-old male with a past medical history of dementia maintained chronically on citalopram and trazodone. He has a history of chronic kidney disease stage III with baseline creatinines that oscillate between 1.2-1.4. He has a
history of diabetes and has been maintained on metformin and insulin. He is maintained on lisinopril hydrochlorothiazide for his hypertension. He presented to the emergency room on with complaints of weakness ,fatigue and worsening right
plantar foot wound. The patient was initially started on vancomycin for his wound which recently has been transitioned to Ancef for MSSA over the course of his admission his creatinine has risen from his baseline of 1.4-1.6. The patient has
recently sustained a fall as well. vascular surgery is going to prepare to do an angiogram at some point in the near future and nephrology was asked to see the patient.
Past Medical History
Chronic kidney disease stage III with baseline creatinine of 1.2-1.4 with known diabetic nephropathy and microhematuria
Dementia
Depression
Type 2 diabetes
Hypertension
Hypothyroidism
Chronic tobacco use
Social History
Tobacco: Smoker
Alcohol: Occasional
Family History
no ckd
Allergies / Home Medications
Allergy/AdvReac Type Severity Reaction Status Date / Time
No Known Allergies Allergy Verified 11/01/24 16:31
�Medication �Instructions �Recorded �Confirmed �Type
citalopram 20 mg tablet 20 mg PO QPM Depression 10/12/24 11/01/24 History
lisinopril 20 1 tab PO QPM Blood Pressure 10/12/24 11/01/24 History
mg-hydrochlorothiazide 25 mg tablet
rosuvastatin 20 mg tablet 20 mg PO QPM High Cholesterol 10/12/24 11/01/24 History
trazodone 100 mg tablet 100 mg PO HSPRN PRN sleep 10/12/24 11/01/24 History
clopidogrel 75 mg tablet 75 mg PO QPM Blood Clot 11/01/24 11/01/24 History
Prevention/Tx
insulin aspart U-100 100 unit/mL 15 unit SC TID Diabetes 11/01/24 11/01/24 History
(3 mL) subcutaneous pen (Novolog
FlexPen U-100 Insulin aspart)
insulin glargine 100 unit/mL (3 15 unit SC HS Diabetes 11/01/24 11/01/24 History
mL) subcutaneous pen (Lantus
Solostar U-100 Insulin)
levothyroxine 75 mcg tablet 75 mcg PO DAILY Thyroid 11/01/24 11/01/24 History
metformin 1,000 mg tablet 1,000 mg PO QPM Diabetes 11/01/24 11/01/24 History
Review of Systems
-
Unable to obtain full review of systems at this time due to: Dementia
History Source: Patient
All other systems: Negative unless noted
Musculoskeletal: Other (Right plantar foot wound)
Skin: Other (Right plantar foot wound with cellulitic change)
Physical Exam
Vital Signs
Vital Signs
Temp Pulse Resp BP Pulse Ox
98.3 F 70 16 107/68 99
11/04/24 15:14 11/04/24 15:14 11/04/24 15:14 11/04/24 15:14 11/04/24 15:14
Lab Results
WBC 12.4 10^3/uL (4.8-10.8) H 11/04/24 06:47
11/04/24 06:47
11/04/24 06:46
RBC 3.03 10^6/uL (4.70-6.10) L 11/04/24 06:47
Hgb 9.5 g/dL (13.0-18.0) L 11/04/24 06:47
Hct 29.0 % (39.0-52.0) L 11/04/24 06:47
Plt Count 448 10^3/uL (130-400) H 11/04/24 06:47
Sodium 137 mmol/L (135-145) 11/04/24 06:46
Potassium 3.6 mmol/L (3.5-5.1) 11/04/24 06:46
Chloride 101 mmol/L (98-107) 11/04/24 06:46
Carbon Dioxide 23 mmol/L (22-30) 12 06:46
BUN 21 mg/dl (9-20) H 11/04/24 06:46
Creatinine 1.6 mg/dL (0.7-1.3) H 11/04/24 06:46
eGFR 44.65 11/04/24 06:46
Glucose 113 mg/dl (70-99) H 11/04/24 06:46
Calcium 8.9 mg/dl (8.4-10.2) 11/04/24 06:46
Albumin 2.6 g/dl (3.5-5.0) L 11/04/24 06:46
Physical Exam
General: AOx1, Nontoxic , NAD, cachectic
HEENT: PERRL, EOMI, Anicteric, Conjunctivae Clear, Ear/Nose Intact, Hearing Normal, Oropharynx Clear/dry Dentition Intact, Facial Symmetry, Neck Supple, Neck: Trachea Midline, No JVD and No Thyromegaly, no Bruits
Respiratory: Clear to auscultation bilaterally with normal lung exersion
Cardiac: S1/S2 and Regular Rate/Rhythm
Breast: Deferred by me
Abdomen: Soft, Nontender, Nondistended, Normal Bowel Sounds and No Hepatosplenomegaly
Rectal: Deferred by Provider
Genito-urinary: No Costovertebral Tenderness
Extremities: No Clubbing, No Cyanosis and No Edema
Skin: No Rash or open lesions, right foot plantar ulceration, wound distress
Neuro: Nonfocal/Grossly Intact, CN II-XII (Intact) and Strength (Musculoskeletal exam 5 out of 5 both upper and lower extremities)
Hematologic/Lymphatic: No Cervical Lymphadenopathy, No Submandibular Lymphadenopathy and No Supraclavicular Lymphadenopathy
Psych: Mood/flat, not completely oriented to time and place
Vascular: plus 1 pedal and radial pulses
Data Reviewed
-
Radiology: Report Reviewed by me (MRI report of foot reviewed no noted osteomyelitis of right foot notable cellulitis and edema with 2.8 x 1.2 x 1.5 cm abscess/phlegmon)
Labs: Labs Reviewed by me (BMP CBC urinalysis)
Old Records: Reviewed (Reviewed old labs from date 12/13/2023 creatinine 0.9, creatinine 1.4 10/12/24)
Assessment/Plan
-
Impression:
BRIE
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
Right plantar foot ulceration/MSSA wound cultured
Diabetes
Hypertension
Dementia
Plan:
BRIE/CKD
-Urinalysis consistent with diabetes or possibly even infectious GN however patient has had longstanding proteinuria and microscopic hematuria per review of past urinalysis
-He likely has diabetic nephropathy and/or ischemic nephropathy given his vascular disease burden
-KATHY and hydrochlorothiazide currently held as patient blood pressure remains low
-Check postvoid bladder scan, if creatinine continues to rise we will follow-up with full kidney and bladder u/s
-Antibiotics will need to be dosed appropriately for GFR less than 40
-Will check urine eosinophils as patient was recently placed on vancomycin if creatinine continues to rise
-Patient will require contrast prophylaxis with IVFS prior to angiogram when this is pursued
-Okay to continue with lactated Ringer's at this time
--- NOTE | 2024-11-04 16:07 | PTCARENOTE ---
Gave report to Andrey Bah RN. Transported to [facility] w/ transport volunteers. Sent w/ all belongings.
[2024-11-04 16:24] VITALS: BP 123/70; BMI 20.9
[2024-11-04 16:29] LABS: Glucose - Point of Care 81 mg/dl (70-99)
[2024-11-04] MEDS: CELEXA 20 MG PO (17:12)
[2024-11-04] MEDS: CRESTOR 20 MG PO (17:12)
--- NOTE | 2024-11-04 18:21 | TRANSFER ---
Transfer to [facility] at 1625 hrs. Pt Denies pain at this time. Pt disorriented to time and place, reoriented and oriented to unit. SCD's on. Calm , pleasant, compliant.
[2024-11-04 22:06] LABS: Glucose - Point of Care 98 mg/dl (70-99)
[2024-11-04 23:00] VITALS: BP 123/77
[2024-11-04] MEDS: LANTUS 0.15 UNITS SC (23:49)
[2024-11-05] MEDS: HEPARIN 5000 UNITS SC ×3 (00:32→18:12)
[2024-11-05 02:09] LABS: Glucose - Point of Care 166 mg/dl (70-99)
[2024-11-05] MEDS: ANCEF 10 IV ×2 (06:26→14:13)
[2024-11-05] MEDS: LR 1000 IV ×2 (06:26→19:45)
[2024-11-05 06:46] LABS: Hemoglobin 10.5 g/dL (13.0-18.0); Mean Corp Hgb Conc. 31.8 g/dL (33.0-37.0); Mean Corpuscular Hgb 30.8 pg (27.0-31.0); Mean Corpuscular Volume 96.8 fL (80.0-94.0); Mean Platelet Volume 9.6 fL (7.4-10.4); Platelet Count 494 10^3/uL (130-400); Red Blood Cell Count 3.41 10^6/uL (4.70-6.10); Red Cell Dist. Width 13.4 % (11.5-14.5); White Blood Cell Count 12.9 10^3/uL (4.8-10.8)
[2024-11-05 07:10] LABS: Blood Urea Nitrogen 24 mg/dl (9-20); Calcium 8.9 mg/dl (8.4-10.2); Carbon Dioxide 22 mmol/L (22-30); Chloride 103 mmol/L (98-107); Estimated Creatinine Clearance 36 ml/min; Glucose 136 mg/dl (70-99); Potassium 3.7 mmol/L (3.5-5.1); Sodium 139 mmol/L (135-145); eGFR 41.52
[2024-11-05 07:21] LABS: Glucose - Point of Care 125 mg/dl (70-99)
[2024-11-05 07:30] VITALS: BP 129/17
[2024-11-05] MEDS: SYNTHROID 75 MCG PO (07:57)
[2024-11-05] MEDS: NOVOLOG FLEXPEN 15 UNITS SC (08:00)
[2024-11-05] MEDS: NOVOLOG FLEXPEN-LOW RESISTANCE SC ×3 (08:01→19:31)
[2024-11-05] MEDS: HYDROPHOR 1 APPLIC TOPICAL (08:01)
--- NOTE | 2024-11-05 11:31 | CM ---
CM following re: discharge planning.
Reviewed pt's chart, met with pt and spoke to pt's son Alexander to update on discharge plan progress.
PT and OT have been recommending [facility] level of care and referrals to local SNFs noted. Both pt and his son Alexander are aware that [facility] SNF and [facility]F offered a bed for a short term rehab when pt is medically stable. Both pt and his
son Alexander stated they do not have preference and either [facility] SNF or [facility] SNF are OK.
D/C plan: [facility] or [facility] SNF.
CM will follow with discharge plan updates as hospitalization progresses
[2024-11-05 11:39] LABS: Glucose - Point of Care 71 mg/dl (70-99)
--- NOTE | 2024-11-05 13:52 | W.PN.HOSP.TC ---
Today's Communication/Plan
-
Abx
Angiogram friday
f/u final cultures
f/u PVR Renal/Bladder US
Monitor Renal function
F/u U Eosinophils
Assessment / Plan
Assessment / Plan
Physical Exam
General: Well Developed, Well Nourished and No Apparent Distress
HEENT: NormoCephalic, Moist mucous membranes and Atraumatic
Respiratory: Clear
Cardiac: S1/S2 and Regular Rhythm; No Murmur or Rub
GI: Soft, Non Tender, Non Distended and Normal Bowel Sounds; No Organomegaly
Rectal: Deferred by Provider
Musculoskeletal: No Clubbing and No Cyanosis
Skin: Other (right LE wound (plantar aspect of right foot))
Neuro: AO x 3 and Nonfocal/grossly intact
Psych: Calm
# Right foot cellulitis/wound/Abscess
-Edema versus loculated fluid in the plantar medial soft tissues adjacent to the base of the first metatarsal measuring approximately 2.8 x 1.2 x 1.5 cm: phlegmonous changes versus a developing abscess
-F/u Podiatry recs
-F/u Blood no growth today; cultures MSSA and enterococcus
-F/u MRSA PCR negative
� Switch to Vanc due to enterococcus indeterminate species
-I&D 11/03
-Tylenol as needed for pain or fever
�Noninvasive studies, vascular consulted - angiogram tentatively Friday
#BRIE
-Septic ATN v AIN v pre-renal
� On Vanc for bactereria
� Start back IV fluids
� Avoid nephrotoxic agents
- Urine Eosinophils f/u - if positive - then will have to change abx
-PVR with bladder/renal US
-will require contrast prophylaxis with IVFS prior to angiogram when this is pursued
Type 2 diabetes mellitus with hyperglycemia
-NovoLog 15 units 3 times a day
-Lantus 15 units at bedtime
-Sliding scale
-Hold metformin
#fall likely mechanical
-PT/OT consulted
#Essential hypertension
-Hold antihypertensives due to soft BPs and BRIE
#Hyperlipidemia
-Continue statin
# Depression
-citalopram continued
# Hypothyroidism
-Levothyroxine continued
# Hyperlipidemia
-Statin continued
# Nicotine dependence
-Denied nicotine patch
# DVT prophylaxis
-HSQ
# CODE STATUS
-Full code
Total time spent on today's encounter was 53 minutes which included time spent in counseling the patient/family regarding diagnosis and treatment plan as listed above, goals of care, and symptom management. Case was discussed with nursing staff,
specialists, and care coordinators/case management. All labs and imaging personally reviewed by me. Remainder the time spent in detailed review of previous records, lab data, imaging, and other medical provider documentation.
Anticipated Discharge: > 48 hours
Subjective/Interval History
-
Date of Service: November 05, 2024
No acute events
Objective Data
-
Labs:
Laboratory Results
11/05/24
06:20
WBC 12.9 H
Hgb 10.5 L
Hct 33.0 L
Plt Count 494 H
Sodium 139
Potassium 3.7
Chloride 103
Carbon Dioxide 22
BUN 24 H
Creatinine 1.7 H
Glucose 136 H
Calcium 8.9
Vital Signs:
Vital Signs
Temp Pulse Resp BP Pulse Ox
98.2 F 72 17 129/17 100
11/05/24 07:30 11/05/24 07:30 11/05/24 07:30 11/05/24 07:30 11/05/24 07:30
I&O
11/04/24 11/05/24 11/06/24
06:59 06:59 06:59
Intake Total 1405 / 1405 3920 / 3920 1520 / 1520
Output Total 325 / 325 1150 / 1150
Balance 1080 / 1080 2770 / 2770 1520 / 1520
Review of Systems
-
History Source: Patient
All other systems: Not reviewed unless documented
Physical Exam
-
General: No Apparent Distress
Respiratory: Clear to Auscultation
Cardiac: S1/S2
GI: Soft, Nontender, Nondistended and Normal Bowel Sounds
Musculoskeletal: No Edema
Neuro: Awake and Alert
Psych: Calm
Data Reviewed
-
Total Time Spent with Patient (in minutes): 41
Diagnostic Radiology: Report Reviewed by me
MRI: Report Reviewed by me
Labs: Labs Reviewed by me
[2024-11-05] MEDS: NOVOLOG FLEXPEN SC ×2 (14:13→19:32)
[2024-11-05 15:32] VITALS: BP 115/69
--- NOTE | 2024-11-05 15:48 | W.PN.NEPH.PH ---
Today's Communication / Plan
-
follow urine studies and renal US
cont LR
Assessment/Plan
-
Impression:
BRIE
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
Right plantar foot ulceration/MSSA wound cultured
Diabetes
Hypertension
Dementia
Plan:
BRIE/CKD
cr increasing trend-recheck UA , U eosinophils, Fena
DD infectious GN however patient has had longstanding proteinuria and microscopic hematuria per review of past urinalysis
-He likely has diabetic nephropathy and/or ischemic nephropathy given his vascular disease burden
-KATHY and hydrochlorothiazide currently held as patient blood pressure remains low
-Check postvoid bladder scan,pending renal US
-Antibiotics will need to be dosed appropriately for GFR less than 40
once cr stabilized-Patient will require contrast prophylaxis with IVFS prior to angiogram when this is pursued
-Okay to continue with lactated Ringer's at this time
d/w primary and nursing
-
-
Date of Service: November 05, 2024
CC / HPI / ROS
-
Chief Complaint:
BRIE
History of Present Illness:
cr increasing to 1.7
non oliguric
no fever, BP better and stable
Review of Systems:
demented limited history
no pain or sob
no n/v, incontinent of urine
Labs
-
Labs:
WBC 12.9 10^3/uL (4.8-10.8) H 11/05/24 06:20
RBC 3.41 10^6/uL (4.70-6.10) L 11/05/24 06:20
Hgb 10.5 g/dL (13.0-18.0) L 11/05/24 06:20
Hct 33.0 % (39.0-52.0) L 11/05/24 06:20
Plt Count 494 10^3/uL (130-400) H 11/05/24 06:20
Sodium 139 mmol/L (135-145) 11/05/24 06:20
Potassium 3.7 mmol/L (3.5-5.1) 11/05/24 06:20
Chloride 103 mmol/L (98-107) 11/05/24 06:20
Carbon Dioxide 22 mmol/L (22-30) 11/05/24 06:20
BUN 24 mg/dl (9-20) H 11/05/24 06:20
Creatinine 1.7 mg/dL (0.7-1.3) H 11/05/24 06:20
eGFR 41.52 11/05/24 06:20
Glucose 136 mg/dl (70-99) H 11/05/24 06:20
Calcium 8.9 mg/dl (8.4-10.2) 11/05/24 06:20
Albumin 2.6 g/dl (3.5-5.0) L 11/04/24 06:46
Physical Exam
-
Vital Signs:
Vital Signs
Temp Pulse Resp BP Pulse Ox
97.7 F 107 16 115/69 98
11/05/24 15:32 11/05/24 15:32 11/05/24 15:32 11/05/24 15:32 11/05/24 15:32
Cardiovascular:: Regular rate and rhythm
Respiratory:: Bilateral: CTA (decreased)
Lung Excursion:: Normal
Abdomen:: Nontender and Soft
Extremity Edema:: None: Bilateral:
Gimenez Catheter: No
[2024-11-05 15:51] LABS: Urine Albumin 1+ (Neg - Trace); Urine Bilirubin Negative (Negative); Urine Character Clear (Clear); Urine Color Yellow; Urine Glucose Negative (Negative); Urine Ketone Negative (Negative); Urine Leukocyte 2+ (Negative); Urine Nitrite Negative (Negative); Urine Occult Blood 2+ (Negative); Urine Urobilinogen Negative (Neg - 1+)
[2024-11-05 16:07] LABS: Urine Squamous Cell 0-2 /LPF (Few)
[2024-11-05 16:08] LABS: Urine Bacteria Many (Negative); Urine White Cell 90-100 /HPF (0-5); Urine Yeast Moderate (Negative)
[2024-11-05 16:25] LABS: Glucose - Point of Care 147 mg/dl (70-99)
[2024-11-05 16:35] LABS: Body Fluid for Eosinophils No Eosinophils seen
--- NOTE | 2024-11-05 16:35 | W.PN.UPDATE ---
Update Note
Progress Note Update
Tentative plan for OR for angiogram on Friday11/08/[address] Jesse Batista, this is pending kidney function and medical clearance. Will make n.p.o. at midnight on Friday.
[2024-11-05] MEDS: UNASYN IV (17:05)
[2024-11-05 17:53] LABS: Urine Sodium 29 mmol/L (30-90)
[2024-11-05] MEDS: CRESTOR 20 MG PO (18:02)
[2024-11-05] MEDS: CELEXA 20 MG PO (18:02)
--- NOTE | 2024-11-05 18:12 | W.PN.POD ---
Today's Communication
Today's Communication
Will wait for vascular surgery work up before proceeding with any further surgical plan by podiatry
Assessment / Plan
-
A/P : Diabetic Rt foot necrotic ulcer with exposed rt 1st met head
S/P : Rt foot I & D with debridement of necrotic tissue POD #2
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
Plan : Cont IV abx.
Appreciate vascular surgery consultation, possible Angiogram next wk
Discussed with patient about possibly needing bone resection since loss of soft tissue and exposed 1st met head. I do not know if he understands completely, will talk to his son .
Changed dressings to Rt foot ,
Subjective
Chief Complaint
Rt foot necrotic ulcer.
Subjective
Patient seen at bedside, doing fine, denies any new complaints, no pain in Rt foot/leg, no strike through bleeding RT foot dressings.
Objective
Temp Pulse Resp BP Pulse Ox
97.7 F 107 16 115/69 98
11/05/24 15:32 11/05/24 15:32 11/05/24 15:32 11/05/24 15:32 11/05/24 15:32
11/05/24 06:20
11/05/24 06:20
Vital Signs and Lab results were reviewed.
Rt foot non palpable pedal pulses.
Rt foot plantar aspect surgically drained site submet 1st with large soft tissue loss, no purulence, no foul odor noted. . Fibrotic ulcer at plantar aspect of the Rt hallux with deep tissue loss /exposed tendons . no new areas of any necrotic tissue
noted. No erythema, Rt hallux with minimal dusky discoloration
[2024-11-05] MEDS: LR IV (20:44)
[2024-11-05 21:39] LABS: Glucose - Point of Care 209 mg/dl (70-99)
[2024-11-05] MEDS: LANTUS 0.15 UNITS SC (21:44)
[2024-11-05 23:15] VITALS: BP 114/66
[2024-11-06] MEDS: UNASYN IV ×2 (01:37→05:16)
[2024-11-06] MEDS: HEPARIN 5000 UNITS SC ×3 (01:38→16:11)
[2024-11-06] MEDS: DESENEX/MITRAZOL/ZEASORB 1 APPLIC TOPICAL ×3 (01:39→21:39)
[2024-11-06] MEDS: SYNTHROID 75 MCG PO (05:20)
[2024-11-06 07:00] VITALS: BP 100/56
[2024-11-06 07:35] LABS: Hematocrit 30.5 % (39.0-52.0); Hemoglobin 10.5 g/dL (13.0-18.0); Mean Corp Hgb Conc. 34.4 g/dL (33.0-37.0); Mean Corpuscular Hgb 31.9 pg (27.0-31.0); Mean Corpuscular Volume 92.7 fL (80.0-94.0); Platelet Count 433 10^3/uL (130-400); Red Blood Cell Count 3.29 10^6/uL (4.70-6.10); Red Cell Dist. Width 13.6 % (11.5-14.5); White Blood Cell Count 16.5 10^3/uL (4.8-10.8)
[2024-11-06 07:54] LABS: Blood Urea Nitrogen 31 mg/dl (9-20); Calcium 8.4 mg/dl (8.4-10.2); Carbon Dioxide 20 mmol/L (22-30); Chloride 102 mmol/L (98-107); Estimated Creatinine Clearance 20 ml/min; Glucose 176 mg/dl (70-99); Potassium 3.8 mmol/L (3.5-5.1); Sodium 136 mmol/L (135-145)
[2024-11-06 08:36] LABS: Glucose - Point of Care 214 mg/dl (70-99)
[2024-11-06] MEDS: NOVOLOG FLEXPEN-LOW RESISTANCE SC (09:00)
[2024-11-06] MEDS: NOVOLOG FLEXPEN 15 UNITS SC ×2 (09:00→16:11)
[2024-11-06] MEDS: HYDROPHOR 1 APPLIC TOPICAL (09:01)
[2024-11-06] MEDS: ZOSYN 50 IV ×3 (10:07→21:39)
[2024-11-06] MEDS: LR 1000 IV (10:38)
--- NOTE | 2024-11-06 12:22 | PTCARENOTE ---
PT alert withdrawn flat affect. Pt able to make needs known alert to self slow to respond forgetful. Pt with LR at 7 ml hour infusing. HRR very weak pedals RLE +1 edema. 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
ordered COVID swab CXR and DC IVF
PT turned repostioned . wound care completed as pER MD. call [facility] in hand pt on fall precautions and agreed not To Get oob
--- NOTE | 2024-11-06 12:29 | W.PN.HOSP.TC ---
Today's Communication/Plan
-
Switch to Zosyn
F/u urine cultures, CXR, COVID, Flu, Blood cultures
Monitor renal function (most likely Septic ATN), holding IVF for crackles at this time
Angiogram Friday if Renal function improves although may need to delay
Assessment / Plan
Assessment / Plan
Physical Exam
General: Well Developed, Well Nourished and No Apparent Distress
HEENT: NormoCephalic, Moist mucous membranes and Atraumatic
Respiratory: Clear
Cardiac: S1/S2 and Regular Rhythm; No Murmur or Rub
GI: Soft, Non Tender, Non Distended and Normal Bowel Sounds; No Organomegaly
Rectal: Deferred by Provider
Musculoskeletal: No Clubbing and No Cyanosis
Skin: Other (right LE wound (plantar aspect of right foot))
Neuro: AO x 3 and Nonfocal/grossly intact
Psych: Calm
# Right foot cellulitis/wound/Abscess
-Edema versus loculated fluid in the plantar medial soft tissues adjacent to the base of the first metatarsal measuring approximately 2.8 x 1.2 x 1.5 cm: phlegmonous changes versus a developing abscess
-F/u Podiatry recs
-F/u Blood no growth today; cultures MSSA and enterococcus
-F/u MRSA PCR negative
� Switch to Zosyn now with UTI
-I&D 11/03
-Tylenol as needed for pain or fever
�Noninvasive studies, vascular consulted - angiogram tentatively Friday if renal function improves
#Febrile episode
� Most likely secondary to above infection versus UTI
� X-ray chest for crackles
� Follow-up blood cultures
� Follow-up COVID, influenza
� Monitor fever curve, white count
� Continue Zosyn
#BRIE
-Septic ATN v AIN v pre-renal +Cystitis
� Switch to Zosyn
� Hold IVF due to crackles for now
� Avoid nephrotoxic agents
- Urine Eosinophils f/u - negative
-will require contrast prophylaxis with IVF prior to angiogram when this is pursued
#Cystitis
� Start Zosyn
� Follow-up cultures
Type 2 diabetes mellitus with hyperglycemia
-NovoLog 15 units 3 times a day
-Lantus 15 units at bedtime
-Sliding scale
-Hold metformin
#fall likely mechanical
-PT/OT consulted
#Essential hypertension
-Hold antihypertensives due to soft BPs and BRIE
#Hyperlipidemia
-Continue statin
# Depression
-citalopram continued
# Hypothyroidism
-Levothyroxine continued
# Hyperlipidemia
-Statin continued
# Nicotine dependence
-Denied nicotine patch
# DVT prophylaxis
-HSQ
# CODE STATUS
-Full code
Total time spent on today's encounter was 55 minutes which included time spent in counseling the patient/family regarding diagnosis and treatment plan as listed above, goals of care, and symptom management. Case was discussed with nursing staff,
specialists, and care coordinators/case management. All labs and imaging personally reviewed by me. Remainder the time spent in detailed review of previous records, lab data, imaging, and other medical provider documentation.
Anticipated Discharge: > 48 hours
Subjective/Interval History
-
Date of Service: November 06, 2024
Patient's renal function worsening, otherwise no other acute events overnight
Objective Data
-
Labs:
Laboratory Results
11/06/24
06:48
WBC 16.5 H
Hgb 10.5 L
Hct 30.5 L
Plt Count 433 H
Sodium 136
Potassium 3.8
Chloride 102
Carbon Dioxide 20 L
BUN 31 H
Creatinine 3.0 H
Glucose 176 H
Calcium 8.4
Vital Signs:
Vital Signs
Temp Pulse Resp BP Pulse Ox
97.8 F 73 16 100/56 96
11/06/24 07:00 11/06/24 07:00 11/06/24 07:00 11/06/24 07:00 11/06/24 07:00
I&O
11/05/24 11/06/24 11/07/24
06:59 06:59 06:59
Intake Total 3920 / 3920 3300 / 3300
Output Total 1150 / 1150
Balance 2770 / 2770 3300 / 3300
Review of Systems
-
History Source: Patient
All other systems: Not reviewed unless documented
Physical Exam
-
General: No Apparent Distress
Respiratory: Clear to Auscultation
Cardiac: S1/S2
GI: Soft, Nontender, Nondistended and Normal Bowel Sounds
Musculoskeletal: No Edema
Neuro: Awake and Alert
Psych: Calm
Data Reviewed
-
Total Time Spent with Patient (in minutes): 41
Diagnostic Radiology: Report Reviewed by me
MRI: Report Reviewed by me
Labs: Labs Reviewed by me
[2024-11-06 12:45] LABS: Glucose - Point of Care 288 mg/dl (70-99)
[2024-11-06 13:05] LABS: COVID-19 Antigen Negative (Negative)
[2024-11-06] MEDS: NOVOLOG FLEXPEN SC (14:14)
[2024-11-06] MEDS: NOVOLOG FLEXPEN-LOW RESISTANCE 1 UNITS SC (14:15)
[2024-11-06 15:00] VITALS: BP 138/89
--- NOTE | 2024-11-06 15:14 | W.PN.NEPH.PH ---
Today's Communication / Plan
-
see plan
Assessment/Plan
-
Impression:
BRIE
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
Right plantar foot ulceration/MSSA wound cultured
Diabetes
Hypertension
Dementia
Plan:
BRIE/CKD
cr increasing trend-UA with ?UTI, neg U eosinophils, Fena low
DD infectious GN however patient has had longstanding proteinuria and microscopic hematuria per review of past urinalysis
-He likely has diabetic nephropathy and/or ischemic nephropathy given his vascular disease burden
check complements, renal US with out hydro
-KATHY and hydrochlorothiazide currently held as patient blood pressure remains low
follow bladder scan,monitor UOP
IVF off since has crackles on exam, check BNP
-Antibiotics will need to be dosed appropriately for falling GFR
not ready for angio at this time
leucocytosis is worse
follow labs
-
-
Date of Service: November 06, 2024
CC / HPI / ROS
-
Chief Complaint:
BREI
History of Present Illness:
cr increasing to 1.7-->3, UOP not measured
low grade fever last night, BP soft
WBC increased to 16k
Review of Systems:
demented limited history
no pain or sob
no n/v, incontinent of urine
Labs
-
Labs:
WBC 16.5 10^3/uL (4.8-10.8) H 11/06/24 06:48
RBC 3.29 10^6/uL (4.70-6.10) L 11/06/24 06:48
Hgb 10.5 g/dL (13.0-18.0) L 11/06/24 06:48
Hct 30.5 % (39.0-52.0) L 11/06/24 06:48
Plt Count 433 10^3/uL (130-400) H 11/06/24 06:48
Sodium 136 mmol/L (135-145) 11/06/24 06:48
Potassium 3.8 mmol/L (3.5-5.1) 11/06/24 06:48
Chloride 102 mmol/L (98-107) 11/06/24 06:48
Carbon Dioxide 20 mmol/L (22-30) L 11/06/24 06:48
BUN 31 mg/dl (9-20) H 11/06/24 06:48
Creatinine 3.0 mg/dL (0.7-1.3) H 11/06/24 06:48
eGFR 21.00 11/06/24 06:48
Glucose 176 mg/dl (70-99) H 11/06/24 06:48
Calcium 8.4 mg/dl (8.4-10.2) 11/06/24 06:48
Albumin 2.6 g/dl (3.5-5.0) L 11/04/24 06:46
Physical Exam
-
Vital Signs:
Vital Signs
Temp Pulse Resp BP Pulse Ox
97.8 F 73 16 100/56 96
11/06/24 07:00 11/06/24 07:00 11/06/24 07:00 11/06/24 07:00 11/06/24 07:00
Cardiovascular:: Regular rate and rhythm
Respiratory:: Bilateral: Rales (bases)
Lung Excursion:: Normal
Abdomen:: Nontender and Soft
Extremity Edema:: None: Bilateral:
Gimenez Catheter: No
[2024-11-06] MEDS: NOVOLOG FLEXPEN-LOW RESISTANCE 3 UNITS SC (16:10)
[2024-11-06 16:11] LABS: Glucose - Point of Care 292 mg/dl (70-99)
[2024-11-06] MEDS: CELEXA 20 MG PO (17:28)
[2024-11-06] MEDS: CRESTOR 20 MG PO (17:28)
[2024-11-06 19:24] LABS: NT-proBNP 10300 pg/ml
[2024-11-06] MEDS: LANTUS 0.15 UNITS SC (21:39)
[2024-11-06 21:40] LABS: Glucose - Point of Care 274 mg/dl (70-99)
[2024-11-06 23:00] VITALS: BP 131/84
[2024-11-07] VITALS (48 sets, daily range): BP systolic 87–144; BP diastolic 53–116; PULSE 2–141
[2024-11-07] MEDS: HEPARIN SC (00:52)
[2024-11-07] MEDS: ZOSYN 50 IV ×4 (03:10→23:36)
[2024-11-07] MEDS: SYNTHROID 75 MCG PO (06:00)
[2024-11-07 07:57] LABS: Blood Urea Nitrogen 70 mg/dl (9-20); Carbon Dioxide 16 mmol/L (22-30); Chloride 98 mmol/L (98-107); Estimated Creatinine Clearance 16 ml/min; Glucose 280 mg/dl (70-99); Potassium 4.5 mmol/L (3.5-5.1); Sodium 136 mmol/L (135-145); eGFR 15.33
[2024-11-07 08:07] LABS: Glucose - Point of Care 289 mg/dl (70-99)
[2024-11-07] MEDS: LASIX 80 MG IV ×2 (08:24→15:49)
[2024-11-07] MEDS: HEPARIN 5000 UNITS SC (08:25)
[2024-11-07 08:57] LABS: Hemoglobin 11.1 g/dL (13.0-18.0); Mean Corp Hgb Conc. 32.6 g/dL (33.0-37.0); Mean Corpuscular Hgb 31.4 pg (27.0-31.0); Mean Corpuscular Volume 96.3 fL (80.0-94.0); Mean Platelet Volume 10.1 fL (7.4-10.4); Platelet Count 554 10^3/uL (130-400); Red Blood Cell Count 3.53 10^6/uL (4.70-6.10); Red Cell Dist. Width 13.9 % (11.5-14.5); White Blood Cell Count 36.4 10^3/uL (4.8-10.8)
--- NOTE | 2024-11-07 09:01 | PTCARENOTE ---
While in report with last shift nurse, nurse stated pt started at 6 am with new audible rhonchi from door way. When we went into the room R 32-40 shallow, labored with conversational SOB, there was audible course rhonchi/crackles noted on
inspiration. PT denied feeling SOB Pulse ox at that time was 85% on room air. 2 liters placed 87%, [address] 88%, 4 liters placed 90%, 5 liters 93%. HR was obscured by course MD ELVI notified and stat PCX ordered, and obtained. pt continued
with labored. Tele placed and HR 137 with many multifocal PVC in couplets. EKG obtained, Rapid was called. Pt placed on 100% NRB and was transfered to ICU.
[2024-11-07] MEDS: NOVOLOG FLEXPEN 15 UNITS SC ×2 (09:33→12:10)
[2024-11-07] MEDS: NOVOLOG FLEXPEN-LOW RESISTANCE 4 UNITS SC (09:34)
[2024-11-07] MEDS: DESENEX/MITRAZOL/ZEASORB 1 APPLIC TOPICAL ×2 (09:35→20:13)
[2024-11-07] MEDS: HYDROPHOR 1 APPLIC TOPICAL (09:35)
[2024-11-07 09:41] LABS: Glucose - Point of Care 305 mg/dl (70-99)
[2024-11-07 10:02] LABS: Troponin I < 0.012 ng/ml
--- NOTE | 2024-11-07 11:07 | W.PN.NEPH.PH ---
Today's Communication / Plan
-
another dose of lasix 80mg
labs later today
Assessment/Plan
-
Impression:
BRIE
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
Right plantar foot ulceration/MSSA wound cultured
CHF unknown EF onset 11/06/24
Diabetes
Hypertension
Dementia
Plan:
BRIE/CKD
cr increasing trend 3.9-UA with ?UTI, neg U eosinophils, Fena low
DD infectious GN however with CHF likely cardiorenal, echo ordered
patient has had longstanding proteinuria and microscopic hematuria per review of past urinalysis
-He likely has diabetic nephropathy and/or ischemic nephropathy given his vascular disease burden
pending complements, renal US with out hydro, CT results note no hydro today
agree with lasix 80mg BID today
deven BIPAP as tolerated
-KATHY and hydrochlorothiazide currently held
monitor UOP with hamilton-only 350cc so far
a gap met acidosis -check L acid
Antibiotics will need to be dosed appropriately for falling GFR
not ready for angio at this time
leucocytosis is worse again, CT results noted
follow labs
d/w nursing and primary
-
-
Date of Service: November 07, 2024
CC / HPI / ROS
-
Chief Complaint:
BRIE
History of Present Illness:
cr increasing to 3.9, UOP with hamilton-350cc s/p lasix
afebrile, BP soft
WBC increased to 36.4
k normal,bicarb 16
SOB, hypoxic this am, started BIPAP and sent to ICU, s/p 80mg of lasix
Review of Systems:
demented limited history
On BIPAP , reports feeling well no pain or sob
Labs
-
Labs:
WBC 36.4 10^3/uL (4.8-10.8) H 11/07/24 07:01
RBC 3.53 10^6/uL (4.70-6.10) L 11/07/24 07:01
Hgb 11.1 g/dL (13.0-18.0) L 11/07/24 07:01
Hct 34.0 % (39.0-52.0) L 11/07/24 07:01
Plt Count 554 10^3/uL (130-400) H D 11/07/24 07:01
Sodium 136 mmol/L (135-145) 11/07/24 07:01
Potassium 4.5 mmol/L (3.5-5.1) 11/07/24 07:01
Chloride 98 mmol/L (98-107) 11/07/24 07:01
Carbon Dioxide 16 mmol/L (22-30) L 11/07/24 07:01
BUN 70 mg/dl (9-20) H 11/07/24 07:01
Creatinine 3.9 mg/dL (0.7-1.3) H 11/07/24 07:01
eGFR 15.33 11/07/24 07:01
Glucose 280 mg/dl (70-99) H 11/07/24 07:01
Calcium 9.0 mg/dl (8.4-10.2) 11/07/24 07:01
Vvp-I-Efgigarxeqe Pept 33777 pg/ml 11/06/24 18:53
Albumin 2.6 g/dl (3.5-5.0) L 11/04/24 06:46
Physical Exam
-
Vital Signs:
Vital Signs
Temp Pulse Resp BP Pulse Ox
96.7 F L 138 29 108/76 92
11/07/24 09:07 11/07/24 10:45 11/07/24 10:45 11/07/24 10:30 11/07/24 10:45
Cardiovascular:: Regular rate and rhythm
Respiratory:: Bilateral: Rhonchi
Lung Excursion:: Abnormal
Abdomen:: Nontender and Soft
Extremity Edema:: None: Bilateral:
Hamilton Catheter: Yes
--- NOTE | 2024-11-07 11:48 | PTCARENOTE ---
Addendum entered by Bren Case RN 11/07/24 12:38:
oxygen titration per work list. patient c/o severe pain when attempting to flush right wrist IV. attempted restartX2,unable to obtain labs. VAT RN notified of need to obtain labs and additional IV access
Original Note:
patient received upon return from CT scan. monitor afib with pvc, hospitalist notified, ekg completed. Orders pending to address afib with rapid vent rates. patient with mottled arms and legs. oriented to person and month only. cooperative. hamilton
draining thick milky yellow urine. crackles noted 1/4 up bilaterally. Bipap removed by RT, placed on midflow oxygen@10 liters. incontinent large soft formed bowel movement. bed lrm activated. call [facility] in reach.
[2024-11-07 12:07] LABS: Glucose - Point of Care 258 mg/dl (70-99)
[2024-11-07] MEDS: NOVOLOG FLEXPEN-LOW RESISTANCE 3 UNITS SC (12:09)
--- NOTE | 2024-11-07 12:40 | PTCARENOTE ---
tiger text to ID regarding + wound culture. placed on contact precautions
--- NOTE | 2024-11-07 13:20 | CON.CAR ---
Consultation
Consultation Request
Date/Time Consultation Requested: 11/07/2024
Date/Time Consultation Performed: 11/07/2024
Reason for Consultation: Septic shock and tachycardia with new onset atrial fibrillation
Medical History
-
Chief Complaint: Right foot abscess
History of Present Illness:
74-year-old male with a history of hypertension, type 2 diabetes mellitus on insulin, hypothyroidism, hyperlipidemia admitted to the [facility] with the right plantar necrotic malodorous draining ulceration. The patient is a poor historian.
He states that he does not know how it started. He lives with his son in [place] and he states that he injured her he foot when he fell and he developed this ulceration. The patient is currently in no acute distress.
Patient has since then developed septicemia and became tachycardic. This morning patient was severely tachypneic and tachycardic. EKG was done that shows sinus rhythm with frequent PACs along with atrial tachycardia. Patient later degenerated
into atrial fibrillation. Patient was transferred to ICU for further evaluation and management.
Patient is maintained on antibiotics and is requiring high flow oxygen for maintaining oxygenation with BiPAP. Patient has developed acute renal failure likely secondary to septic ATN.
Patient underwent incision and drainage of right foot with debridement of necrotic tissue from the right plantar ulcer on 11/03/24
Past Medical History
Past Medical History: Arrhythmias (Patient reports that he may have arrhythmia before. Not sure of atrial fibrillation), HTN, Hypercholesterolemia, Hypothyroidism and IDDM
Social History
Tobacco: Smoker
Alcohol: Daily
Personal:
Living: With Family (Lives with his son)
Family History
Family History: Reviewed & Not Pertinent
Allergies / Home Medications
Allergy/AdvReac Type Severity Reaction Status Date / Time
No Known Allergies Allergy Verified 11/01/24 16:31
�Medication �Instructions �Recorded �Confirmed �Type
citalopram 20 mg tablet 20 mg PO QPM Depression 10/12/24 11/01/24 History
lisinopril 20 1 tab PO QPM Blood Pressure 10/12/24 11/01/24 History
mg-hydrochlorothiazide 25 mg tablet
rosuvastatin 20 mg tablet 20 mg PO QPM High Cholesterol 10/12/24 11/01/24 History
trazodone 100 mg tablet 100 mg PO HSPRN PRN sleep 10/12/24 11/01/24 History
clopidogrel 75 mg tablet 75 mg PO QPM Blood Clot 11/01/24 11/01/24 History
Prevention/Tx
insulin aspart U-100 100 unit/mL 15 unit SC TID Diabetes 11/01/24 11/01/24 History
(3 mL) subcutaneous pen (Novolog
FlexPen U-100 Insulin aspart)
insulin glargine 100 unit/mL (3 15 unit SC HS Diabetes 11/01/24 11/01/24 History
mL) subcutaneous pen (Lantus
Solostar U-100 Insulin)
levothyroxine 75 mcg tablet 75 mcg PO DAILY Thyroid 11/01/24 11/01/24 History
metformin 1,000 mg tablet 1,000 mg PO QPM Diabetes 11/01/24 11/01/24 History
Review of Systems
-
All other systems: Negative unless noted
Physical Exam
Vital Signs
Temp Pulse Resp BP Pulse Ox
97.3 F 132 39 123/82 93
11/07/24 11:20 11/07/24 12:15 11/07/24 12:15 11/07/24 12:02 11/07/24 12:22
Lab Results
11/07/24 07:01
Troponin I < 0.012 ng/ml 11/07/24 09:28
Pbu-Q-Rdmyqesbcuz Pept 65103 pg/ml 11/06/24 18:53
Physical Exam
General: Well Developed and Other (Moderate respiratory distress with CPAP on)
HEENT: Normocephalic and Anicteric
Respiratory: Crackles and Accessory Resp Muscle Use
Cardiac: S1/S2, Irregular Rhythm and Murmur
Musculoskeletal: No Clubbing, No Cyanosis and No Edema
Skin: Warm and Dry
Neuro: Awake, Alert, AO x 3 and No Motor Deficits
Impression / Plan
-
74-year-old gentleman with history of hypertension, hypothyroidism, insulin-dependent diabetes mellitus and depression presented with right foot abscess and has developed into septicemia/septic shock and developed new onset atrial fibrillation this
morning.
Atrial fibrillation
-Provoked in the setting of septic shock
-No cardiac workup in our hospital.
-He recalls noting arrhythmia before but is not on anticoagulation therapy likely not atrial fibrillation.
-Patient has sinus rhythm this morning with frequent PACs that has degenerated into atrial fibrillation
-Will obtain echo once the rate is better controlled
-Treat infection/sepsis
-Will rate control with diltiazem drip and start heparin
-If patient becomes hemodynamically unstable, can use IV amiodarone for better rate control.
-CHADVASC score is 4-age, hypertension, diabetes.
Sepsis
-Febrile with foot abscess along with UTI
-On Zosyn
-Antibiotics as per primary team/ID
-WBC count is 36.4 -significantly elevated-was 16 yesterday and 12-day before
BRIE
-Baseline creatinine 1.1. Currently creatinine is 3.9 and rising
-Consistent with septic shock
-
Data Reviewed
-
EKG: Tracing Personally Visualized and interpreted and Report Reviewed by me
Labs: Labs Reviewed by me and Discussed with Physician
Old Records: Reviewed
Critical Care Time (in minutes): 65
--- NOTE | 2024-11-07 13:34 | PTCARENOTE ---
order s received, VAT team unable to obtain additional access, to place midline
[2024-11-07] MEDS: CARDIZEM 125 IV ×2 (13:40→20:19)
--- NOTE | 2024-11-07 13:42 | CON.ID ---
Consultation
-
Date/Time Consultation Requested: 11/07/2024 0936
Date/Time Consultation Performed: 11/07/2024 1340
Requesting Provider: Dr. Dean
Performing Provider: Dr. Cerna
Reason for Consultation: Foot infection
Chief Complaint / Past History
History of Present Illness
Hawk Blakely is a 74-year-old male being evaluated at the request of Dr. Dean regarding right foot infection. History is obtained from chart review, along with patient interview, although patient was not found able to provide significant
history.
The patient presented to [facility] on 11/01/2024 after sustaining a fall earlier in the day. In the ER, he was noted to have an open wound on the plantar surface, with a large amount of foul-smelling purulence draining from the foot. He is
not sure how long the wound has been present on his foot. He was placed on Zosyn at admission, but has been on several other antibiotics since. Infectious Diseases is asked to comment on further antimicrobial therapy. Recent cultures reveal the
presence of VRE.
The patient has also been evaluated by Podiatry and is awaiting further workup by Vascular Surgery before performing any debridement or additional surgery.
At present, the patient denies pain in the area. He denies any redness spreading up the leg.
Past History
Additional Past Medical History:
HTN
DM type II
Past Surgical History: None
Allergy History:
No Known Allergies Allergy (Verified 11/01/24 16:31)
Medications Reviewed: Yes
Current Antibiotics:
Zosyn 3.375 g IV every 6 hours
Social History
Tobacco: Smoker
Alcohol: Former
Drug: None
Personal: Single
Living: With Family
Employment: Not Employed
Family History
Family History: Unable to Obtain
Review of Systems
Vital Signs
Temp Pulse Resp BP Pulse Ox
97.3 F 132 39 123/82 93
11/07/24 11:20 11/07/24 12:15 11/07/24 12:15 11/07/24 12:02 11/07/24 12:22
Physical Exam
Physical Exam
Constitutional: No Acute Distress, Comfortable and Non-toxic
Eyes: No Conjunctival Hemorrhage and Sclera Anicteric
Oral: No Thrush and Ulcers
Cardiovascular: Irregular Rate and S1/S2; Negative S3/S4
Pulmonary: Clear; Negative Wheezes or Rales
Gastrointestinal: Soft and Non Tender
Wound: Other (Base of right hallux with wound. First metatarsal head exposed. Purulent drainage noted. Hallux is erythematous and quite swollen.)
Neurological: Awake and Alert
Psychological: Calm
Lab / Diagnostic Study Results
Abs Immat Gran (auto) 0.1 10^3/uL (0-0.05) H 11/01/24 16:47
Absolute Neuts (auto) 8.3 10^3/uL (1.4-6.5) H 11/01/24 16:47
Absolute Lymphs (auto) 1.0 10^3/uL (1.2-3.4) L 11/01/24 16:47
Absolute Monos (auto) 0.5 10^3/uL (0.1-0.6) 11/01/24 16:47
Absolute Basos (auto) 0.1 10^3/uL (0-0.2) 11/01/24 16:47
Immature Gran % 0.9 % (0-0.5) H 11/01/24 16:47
Neutrophils % 82.1 % (42.2-75.2) H 11/01/24 16:47
Lymphocytes % 10.2 % (20.5-51.1) L 11/01/24 16:47
Monocytes % 5.3 % (1.7-9.3) 11/01/24 16:47
Eosinophils % 0.8 % (0-6) 11/01/24 16:47
Basophils % 0.7 % (0-2) 12/02/24 16:47
Lactic Acid 2.0 mmol/L (0.7-2.0) 11/01/24 19:37
Urine WBC 90-100 /HPF (0-5) A 11/05/24 15:34
Ur Squamous Epith Cells 0-2 /LPF (Few) 11/05/24 15:34
Microbiology Results
Micro:
11/03/24 18:53 Anaerobic Culture - Preliminary
Foot - Right Culture pending. Anaerobic cultures are examined after 3
days incubation. Additional information to follow.
11/03/24 18:53 Wound Culture - Preliminary
Foot - Right Enterococcus faecalis - VRE
S aureus-Methicillin Sensitive
Gram Stain - Preliminary
11/07/24 07:01 Blood Culture - Pending
Blood/Venous
11/01/24 19:33 Blood Culture - Final
Blood/Venous No Growth - Final Report
11/01/24 19:32 Blood Culture - Final
Blood/Venous No Growth - Final Report
11/06/24 18:53 Blood Culture - Pending
Blood/Venous
11/06/24 14:11 Influenza Types A & B (JAMARCUS) - Final
Nasal Swab Negative for Influenza A & B, NAAT
Negative results must be combined with clinical observations
and patient history.
Nucleic Acid Amplification test (NAAT)performed on the
[employer] platform.
11/05/24 15:34 Urine Culture - Pending
Urine
11/02/24 18:55 MRSA Screen - Final
Nose No Methicillin Resistant Staphylococcus aureus isolated.
11/01/24 19:32 Wound Culture - Final
Foot - Left S aureus-Methicillin Sensitive
Gram Stain - Final
Imaging:
11/02/2024 MRI right foot: No convincing evidence for bone marrow signal changes to indicate acute osteomyelitis. A plantar soft tissue wound at the level of the first metatarsal phalangeal joint is noted. Overall evaluation is somewhat limited due
to motion artifact in the absence of intravenous contrast. Please see full dictation for additional detail.
Assessment / Plan
Right foot cellulitis
Suspected right metatarsal osteomyelitis (on the basis of exposed bone)
Leukocytosis
BRIE
HTN
DM type II
Recommendations:
Wound cultures reveal the presence of VRE, although it is ampicillin sensitive.
Continue with Zosyn for the present, although given worsening renal function, decreased to 2.25 g IV every 6 hours
Continue with local care to the wound.
Await further workup from a Vascular Surgery standpoint.
Await further workup from Podiatry.
Monitor white count and temperature curve.
Monitor creatinine and est CrCl
Further recommendations as additional data is returned.
[2024-11-07] MEDS: CORDARONE 103 MG IV (14:24)
--- NOTE | 2024-11-07 14:51 | W.PN.HOSP.TC ---
Today's Communication/Plan
-
80 mg IV Lasix twice daily
Monitor BMP
Wean off BiPAP as tolerated
Echo
Start heparin drip, diltiazem drip for atrial fibrillation
Insulin adjustment
Antibiotics
Follow cultures
Assessment / Plan
Assessment / Plan
Physical Exam
General: Well Developed, Well Nourished and No Apparent Distress
HEENT: NormoCephalic, Moist mucous membranes and Atraumatic
Respiratory: Clear
Cardiac: S1/S2 and Regular Rhythm; No Murmur or Rub
GI: Soft, Non Tender, Non Distended and Normal Bowel Sounds; No Organomegaly
Rectal: Deferred by Provider
Musculoskeletal: No Clubbing and No Cyanosis
Skin: Other (right LE wound (plantar aspect of right foot))
Neuro: AO x 3 and Nonfocal/grossly intact
Psych: Calm
#Acute Hypoxic Respiratory Failure
-2/2 to Acute CHF, unspecified +/- Pneumonia
-cont zosyn
-mrsa negative
-Cont IV lasix
-Wean o2 as tolerated; Goal o2 >92%
-wean off bipap as tolerated
-F/u LE dopplers
#Acute CHF, unspecified
-Cont IV diuresis - -80mg IV lasix BID - atleast for today
-monitor BMP with diuresis
-ECHO f/u
-bnp 10k
#Atrial fibrillation
� Start Cardizem drip
� Amiodarone drip if becoming hypotensive
� Start heparin drip
# Right foot cellulitis/wound/Abscess
-Edema versus loculated fluid in the plantar medial soft tissues adjacent to the base of the first metatarsal measuring approximately 2.8 x 1.2 x 1.5 cm: phlegmonous changes versus a developing abscess
-F/u Podiatry recs
-F/u Blood no growth today; cultures MSSA and enterococcus
-F/u MRSA PCR negative
� Switch to Zosyn now with UTI
-I&D 11/03
-Tylenol as needed for pain or fever
�Noninvasive studies, vascular consulted - angiogram tentatively Friday if renal function improves
#Febrile episode
#Sepsis
� Most likely secondary to above infection + Cystitis
� Follow-up blood cultures
� Monitor fever curve, white count
� Continue Zosyn
-ID consulted
- Podiatry/Vascular work up
#BRIE
-Septic ATN v AIN v pre-renal(Cardiorenal) +Cystitis
� Switch to Zosyn
� Hold IVF due to crackles for now
� Avoid nephrotoxic agents
- Urine Eosinophils f/u - negative
-Monitor with diuresis
-will require contrast prophylaxis with IVF prior to angiogram when this is pursued
#Cystitis
� Start Zosyn
� Follow-up cultures
-see plan above
Type 2 diabetes mellitus with hyperglycemia
-NovoLog 15 units 3 times a day
-Lantus 15 units at bedtime (reduce to 7qhs while on bipap)
-Sliding scale
-Hold metformin
#fall likely mechanical
-PT/OT consulted
#Essential hypertension
-Hold antihypertensives due to soft BPs and BRIE
#Hyperlipidemia
-Continue statin
# Depression
-citalopram continued
# Hypothyroidism
-Levothyroxine continued
# Hyperlipidemia
-Statin continued
# Nicotine dependence
-Denied nicotine patch
# DVT prophylaxis
-HSQ
# CODE STATUS
-Full code
Total time spent on today's encounter was 56 minutes which included time spent in counseling the patient/family regarding diagnosis and treatment plan as listed above, goals of care, and symptom management. Case was discussed with nursing staff,
specialists, and care coordinators/case management. All labs and imaging personally reviewed by me. Remainder the time spent in detailed review of previous records, lab data, imaging, and other medical provider documentation.
Anticipated Discharge: > 48 hours
Subjective/Interval History
-
Date of Service: November 07, 2024
Became hypoxic and with increased respiratory distress, placed on BiPAP, Lasix given. Found to be in atrial fibrillation.
Objective Data
-
Labs:
Laboratory Results
11/07/24 11/07/24 11/07/24
07:01 13:23 16:00
WBC 36.4 H Pending
Hgb 11.1 L Pending
Hct 34.0 L Pending
Plt Count 554 H D Pending
APTT Pending
Sodium 136 Pending
Potassium 4.5 Pending
Chloride 98 Pending
Carbon Dioxide 16 L Pending
BUN 70 H Pending
Creatinine 3.9 H Pending
Glucose 280 H Pending
Calcium 9.0 Pending
Vital Signs:
Vital Signs
Temp Pulse Resp BP Pulse Ox
97.3 F 132 39 123/82 93
11/07/24 11:20 11/07/24 12:15 11/07/24 12:15 11/07/24 12:02 11/07/24 12:22
I&O
11/06/24 11/07/24 11/08/24
06:59 06:59 06:59
Intake Total 3300 / 3300 630 / 630 200 / 200
Output Total 905 / 905
Balance 3300 / 3300 630 / 630 -705 / -705
Review of Systems
-
History Source: Patient
All other systems: Not reviewed unless documented
Physical Exam
-
General: No Apparent Distress
Respiratory: Clear to Auscultation
Cardiac: S1/S2
GI: Soft, Nontender, Nondistended and Normal Bowel Sounds
Musculoskeletal: No Edema
Neuro: Awake and Alert
Psych: Calm
--- NOTE | 2024-11-07 15:05 | PTCARENOTE ---
Addendum entered by Bren Case RN 11/07/24 15:45:
VAT team unable to start line or obtain lab. hosptialist and intesivist at bedside. patient now ordered DNR status
Original Note:
patient with continued work of breathing. placed on bipap without improvement. amiodarone bolus given with slight improvement of rate control. cardizem@15.VAT team continues to attempt IV access and labs. video arcade manager pam texted regarding delay in
obtaining labs and initiating heparin. tiger text to hospitalist to update. orders pending
--- NOTE | 2024-11-07 15:10 | CON.INTV ---
Consultation
Consultation Request
Date/Time Consultation Requested: 11/07/2024 - 1500
Date/Time Consultation Performed: 11/07/2024 - 1503
Requesting Provider: Dr. Dean
Performing Provider: Dr. Vargas
Reason for Consultation: Worsening hypoxia
Medical History
-
Chief Complaint: Weakness
History of Present Illness:
74-year-old male with a past medical history of uncontrolled DM type II, anxiety, depression, hypothyroidism, hypertension and ambulatory dysfunction who presented with worsening weakness and found to have right foot wound. He says he slipped and
fell about 3 days prior to arrival. He was diagnosed with cellulitis on admission and antibiotics with vancomycin + Zosyn were started. Antibiotics later changed to Ancef on 11/04. On 11/03, he underwent incision and drainage of his right foot with
debridement of necrotic tissue on the right plantar ulcer. Podiatry has been continuing to follow him. His WBC count has been continuing to rise, and so has his creatinine. Nephrology also consulted due to worsening BRIE. On the morning of 11/07,
patient became tachycardic and tachypneic. He developed atrial fibrillation with rapid ventricular rate and cardiology was consulted. Cardizem drip + heparin drip were started. He also became more hypoxic, initially requiring nonrebreather, then
required BiPAP and was still hypoxic. Patient now upgraded to ICU level care and campus ambassador services consulted for additional management/recommendations.
When I saw the patient he was in bed, on BiPAP, awake, alert, occasionally following commands, on BiPAP 15/8 at 15 L/min, saturating 88%. His VTe was low between 150�220mL. He is not in any acute distress. He is tachycardic with heart rate in the
130s. SBP in the 120�130s. Unable to obtain history from the patient or ROS given his acute clinical condition.
PMHx: DM type II with peripheral neuropathy, ambulatory dysfunction, hypertension, anxiety/depression, hypothyroidism, tobacco use disorder
PSHx: Non-contributory
Past Medical History
Past Medical History: Other (Above as per HPI)
Past Surgical History: Other (Above as per HPI)
Social History
Tobacco: Smoker
Alcohol: Occasional
Drug: Marijuana
Personal: Single
Living: With Family
Family History
Family History: Reviewed & Not Pertinent
Allergies / Home Medications
Allergies
Allergy/AdvReac Type Severity Reaction Status Date / Time
No Known Allergies Allergy Verified 11/01/24 16:31
Home Medications
�Medication �Instructions �Recorded �Confirmed �Last Taken �Type
citalopram 20 mg tablet 20 mg PO QPM Depression 10/12/24 11/01/24 10/12/24 History
lisinopril 20 1 tab PO QPM Blood Pressure 10/12/24 11/01/24 10/12/24 History
mg-hydrochlorothiazide 25 mg tablet
rosuvastatin 20 mg tablet 20 mg PO QPM High Cholesterol 10/12/24 11/01/24 10/12/24 History
trazodone 100 mg tablet 100 mg PO HSPRN PRN sleep 10/12/24 11/01/24 Unknown History
clopidogrel 75 mg tablet 75 mg PO QPM Blood Clot 11/01/24 11/01/24 Unknown History
Prevention/Tx
insulin aspart U-100 100 unit/mL 15 unit SC TID Diabetes 11/01/24 11/01/24 Unknown History
(3 mL) subcutaneous pen (Novolog
FlexPen U-100 Insulin aspart)
insulin glargine 100 unit/mL (3 15 unit SC HS Diabetes 11/01/24 11/01/24 Unknown History
mL) subcutaneous pen (Lantus
Solostar U-100 Insulin)
levothyroxine 75 mcg tablet 75 mcg PO DAILY Thyroid 11/01/24 11/01/24 Unknown History
metformin 1,000 mg tablet 1,000 mg PO QPM Diabetes 11/01/24 11/01/24 Unknown History
Review of Systems
-
Unable to Obtain full review of systems at this time due to: Acuity
Vitals / Labs / Diagnostic Testing
Vital Signs
Temp Pulse Resp BP Pulse Ox
97.5 F 140 30 101/78 93
11/07/24 15:00 11/07/24 16:00 11/07/24 16:00 11/07/24 15:49 11/07/24 16:01
Microbiology
11/03/24 18:53 Foot - Right Anaerobic Culture - Preliminary
Culture pending. Anaerobic cultures are examined after 3
days incubation. Additional information to follow.
11/05/24 15:34 Urine Urine Culture - Preliminary
Sparse growth, too young to be identified. Further results
to follow.
11/03/24 18:53 Foot - Right Wound Culture - Preliminary
Enterococcus faecalis - VRE
S aureus-Methicillin Sensitive
11/03/24 18:53 Foot - Right Gram Stain - Preliminary
11/01/24 19:33 Blood/Venous Blood Culture - Final
No Growth - Final Report
11/01/24 19:32 Blood/Venous Blood Culture - Final
No Growth - Final Report
11/06/24 14:11 Nasal Swab Influenza Types A & B (JAMARCUS) - Final
Negative for Influenza A & B, NAAT
Negative results must be combined with clinical observations
and patient history.
Nucleic Acid Amplification test (NAAT)performed on the
[employer] platform.
Diagnostic Testing:
Physical Exam
-
HEENT: Normocephalic and Anicteric
Cardiovascular: Irregular Rhythm, Peripheral Edema (negative) and Other (Irregularly irregular)
Respiratory: Wheeze (negative), Rales (Faintly heard bilaterally), Rhonchi (negative) and Accessory Resp Muscle Use (on BiPAP via full face mask)
GI: Soft, Non Distended, Non Tender and Normal Bowel Sounds
Neurology: Awake, Alert and Tremors (negative)
Skin: Warm and Dry
General: Respiratory Distress (mild on bipap), Chills (negative) and Sweats (negative)
Assessment
-
Assessment: 74-year-old male with a past medical history of uncontrolled DM type II, anxiety, depression, hypothyroidism, hypertension and ambulatory dysfunction who presented with worsening weakness and found to have right foot wound. He says he
slipped and fell about 3 days prior to arrival. He was diagnosed with cellulitis on admission and antibiotics with vancomycin + Zosyn were started. Antibiotics later changed to Ancef on 11/04. On 11/03, he underwent incision and drainage of his
right foot with debridement of necrotic tissue on the right plantar ulcer. Podiatry has been continuing to follow him. His WBC count has been continuing to rise, and so has his creatinine. Nephrology also consulted due to worsening BRIE. On the
morning of 11/07, patient became tachycardic and tachypneic. He developed atrial fibrillation with rapid ventricular rate and cardiology was consulted. Cardizem drip + heparin drip were started. He also became more hypoxic, initially requiring
nonrebreather, then required BiPAP and was still hypoxic. Patient now upgraded to ICU level care and campus ambassador services consulted for additional management/recommendations.
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
Impression:
#Acute respiratory failure with hypoxia likely due to multifocal pneumonia + hypoventilation with severely reduced inspiratory effort now on BiPAP
#Multifocal pneumonia with tree-in-bud nodular opacities seen in the RUL + bilateral lower lobes
#Rapid A-fib
#Leukocytosis
#Anemia
#Thrombocytosis likely reactive
#BRIE (baseline creatinine 0.9)
#DM type II (uncontrolled with HbA1c: 14.8 on 10/12/2024) c/b hyperglycemia
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
#Small bilateral pleural effusions with tree-in-bud nodularity in the lung concerning for pneumonia
#Diffuse circumferential esophageal wall thickening likely due to esophagitis
#Ileus with small bowel dilatation seen on CT abdomen/pelvis from 11/07/2024 with mild abdominal pelvic ascites
# bnormal urinalysis with 2+ leukocyte esterase and 90�100 urine WBC suspicious for UTI
Plan:
- Continue with BiPAP for ventilatory support and check blood gas
- Titrate O2 flow rate on BiPAP to keep SpO2 >90-94%; may need NIV
- Family called by primary hospitalist, Dr. Dean, and patient is now DNR/DNI
- Aspiration precautions
- Strict NPO while on continuous BiPAP
- Heart rate control with goal HR <110
- Continue cardizem gtt; may need amio gtt if pt becomes hypotensive or if HR still uncontrolled while on cardizem gtt
- Replete electrolytes with K>4, Mg>2
- Heparin gtt
- Check TSH with reflex to fT4
- Renally dose all medications, trend sCr, I/O and UOP
- Check lactate
- Continue with antibiotics due to suspected UTI + pneumonia (tree-in-bud nodular opacities in RUL + RLL, LLL)
- Nephrology on board and recommendations appreciated
- Infectious disease also consulted and defer antibiotics to them
- Trend WBC and monitor for fevers
- Follow-up blood cultures (1 set collected 11/07/2024, and last set checked on 11/06/2024)
- Of note, his right foot wound culture from OR on 11/03/2024 grew Enterococcus faecalis�VRE + MSSA, and before that he had a wound culture on 11/01/2024 that grew MSSA from his left foot
- Maintain MAP>65
- May need Jay if he becomes hypotensives; avoid beta-1 agonists given his tachycardia/rapid afib
- Maintain euglycemia with goal BG 140-180 with basal-bolus SQ insulin
- Trend H/H and transfuse if needed to keep Hb>7g/dL; keep plt>20k, unless there is concern for bleeding then keep plt>50k
- Eventually will need bowel regimen; would use suppository vs enema for now given his ileus, and monitor for development of bowel movement
- prn nebulized bronchodilators - not currently bronchospastic
- Incentive spirometer encouraged 10x per hour for at least 4 hrs a day
- DVT ppx: heparin gtt
Patient upgraded from IMU to ICU level care given degree of hypoxia and need for continuous BiPAP. He is DNR/DNI. Group President services will continue to follow along while he remains in the ICU.
Critical care statement: A total of 41 minutes of critical care time was provided for this patient today. This includes management of unstable vital signs, evaluation of the patient at bedside, reviewing the patient's pertinent medical records
including radiographs, microbiology, laboratory evaluations, and discussion with primary team, consultants, pharmacy, nutrition, physical therapy, case management, charge nurse, critical care nursing, and respiratory therapy.
Data:
CT chest/abdomen/pelvis without contrast 11/07/2024:
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 Tortuous ascending thoracic aorta. Limited evaluation for dissection without IV contrast
Tree-in-bud nodularity of the lungs as described above concerning for inflammation/infection
Tiny bilateral pleural effusions.
Diffuse circumferential esophageal wall thickening. This can be seen with esophagitis.
Mild small bowel dilatation. Probable ileus. Limited evaluation without oral and IV contrast. No obstructing mass nor transition zone noted.
Mild abdominopelvic ascites.
Simple left renal cyst.
Coarse pancreatic calcifications suggesting chronic pancreatitis.
Gallstones.
Simple left renal cyst.
Mild fecal material throughout the colon.
Severe diffuse bladder wall thickening. This suggests cystitis or bladder outlet obstruction.
Gimenez catheter present in the bladder.
--- NOTE | 2024-11-07 15:30 | PTCARENOTE ---
pt with pva, attempted midline on right arm, unable to thread the wire, met resistance approx 6cm. attempted left arm with same outcome as the right arm. RN and attending aware. pt resting
--- NOTE | 2024-11-07 16:13 | PTCARENOTE ---
lasix administered. pulse oximeter improved, awaiting insertion of central line
[2024-11-07 16:53] LABS: B.E. -2.5 mmol/L; HCO3 20.1 mmol/L (21-28); PCO2 27 mmHg (35-48); PO2 125 mmHg (83-108); pH 7.48 (7.35-7.45)
[2024-11-07] MEDS: NOVOLOG FLEXPEN SC (17:06)
[2024-11-07] MEDS: CELEXA PO (17:06)
[2024-11-07] MEDS: CRESTOR PO (17:06)
[2024-11-07 17:33] LABS: Glucose - Point of Care 174 mg/dl (70-99)
--- NOTE | 2024-11-07 17:35 | PTCARENOTE ---
wood inspector unable to insert IJ triple line. attempting femoral placement
[2024-11-07] MEDS: HEPARIN 4000 UNITS IV (17:43)
[2024-11-07] MEDS: HEPARIN 25000 UNITS/250 ML IV (17:44)
[2024-11-07 17:54] LABS: APTT 24.3 Sec (23.4-35.0); INR 1.71; PT 20.3 Sec (11.4-14.6)
--- NOTE | 2024-11-07 17:54 | W.SUR.POST ---
Surgical Immediate Post Op
Note
Central Line Insertion Procedure
Date of procedure: 11/07/2024
Pre Op Diagnosis: Inadequate IV access; rapid A-fib
Post Op Diagnosis: Same as above
Procedure Performed: Central line insertion
Primary Surgeon/proceduralist: Dr. Vargas
Secondary Surgeons: N/A
Anesthesia: N/A
Estimated Blood Loss: 5cc
Fluids: N/A
Drains/Shunts: N/A
Specimens/Cultures: N/A
Doppler/Duplex/Angio (Y/N): N/A
Complications: No immediate complications
Operative Findings: 7 kinyarwanda, 16cm long central line inserted into right femoral line. Initially, attempt was made for right IJ however wire was unable to be advanced so procedure was aborted and then transition to the right femoral site. PICC
team also had similar issues with placing a midline/PICC into right arm where they could not advance the catheter. Time out performed prior to start of procedure. Verbal consent obtained from patient's son, Alexander, over telephone, witnessed by
bedside RN. Pt placed into supine position then procedure started. Pt was draped in usual fashion using anti-septic technique. Gloves, cap, facemask, hand washing and cleaning his target skin area with chlorhexidine was also performed. Pt then
anesthetized with 1% lidocaine without epinephrine. Trocar inserted into right femoral vein under ultrasound guidance. Ultrasound probe cover also was used. Blood return seen which was nonpulsatile. Guidewire inserted and trocar was removed
entirely. Incision was made over the guidewire and dilator was inserted. Dilator then removed and triple-lumen central venous catheter was inserted successfully and guidewire was removed entirely. Central line was sutured into place. Blood flow
was suctioned out with syringe from all 3 ports and normal saline was able to be flushed as well into all 3 ports without resistance. Chlorhexidine Placed over central venous catheter hub and the entire hub was covered with a Tegaderm patch.
Procedure ended, drape was removed and there were no immediate complications.
[2024-11-07 17:58] LABS: Blood Urea Nitrogen 80 mg/dl (9-20); Calcium 8.9 mg/dl (8.4-10.2); Carbon Dioxide 20 mmol/L (22-30); Chloride 99 mmol/L (98-107); Estimated Creatinine Clearance 18 ml/min; Glucose 166 mg/dl (70-99); Hematocrit 28.6 % (39.0-52.0); Hemoglobin 9.9 g/dL (13.0-18.0); Lactic Acid 2.9 mmol/L (0.7-2.0); Mean Corp Hgb Conc. 34.6 g/dL (33.0-37.0); Mean Corpuscular Hgb 31.2 pg (27.0-31.0); Mean Corpuscular Volume 90.2 fL (80.0-94.0); Mean Platelet Volume 9.8 fL (7.4-10.4); Platelet Count 458 10^3/uL (130-400); Potassium 3.9 mmol/L (3.5-5.1); Red Blood Cell Count 3.17 10^6/uL (4.70-6.10); Red Cell Dist. Width 13.7 % (11.5-14.5); Sodium 136 mmol/L (135-145); White Blood Cell Count 33.1 10^3/uL (4.8-10.8); eGFR 18.07
[2024-11-07 18:08] LABS: Troponin I < 0.012 ng/ml
[2024-11-07 18:27] LABS: TSH Reflex To Free T4 3.04 uIU/ml (0.47-4.68)
[2024-11-07] MEDS: NOVOLOG FLEXPEN-LOW RESISTANCE 1 UNITS SC (18:27)
[2024-11-07] MEDS: NOVOLOG FLEXPEN-LOW RESISTANCE SC ×2 (18:32→23:37)
--- NOTE | 2024-11-07 20:00 | PTCARENOTE ---
Rec'd pt resting in bed, denies pain, oriented to self only, reoriented pt to place, time, Afib w/ occas p\\vc, cardizem gtt at 15mg- goal HR 80-100; hep gtt at 800 units/ distal pulses via doppler R foot dsg intact, Bipap 16/10 w/ 10 liters o2, sat
97, lungs w/ crackles 1/2 up, decr in bases, sat 97, + bowel sounds, no bm , abd soft, no n/v, NPO, hamilton draining yellow urine
[2024-11-07] MEDS: LANTUS 0.07 UNITS SC (22:03)
[2024-11-07 22:10] LABS: Glucose - Point of Care 106 mg/dl (70-99)
[2024-11-07 23:41] LABS: Glucose - Point of Care 135 mg/dl (70-99)
--- NOTE | 2024-11-07 23:47 | PTCARENOTE ---
sys reviewed, lungs w/ crackles in bases & decr in bases
[2024-11-07 23:50] LABS: APTT 48.3 Sec (23.4-35.0)
[2024-11-07 23:54] LABS: Lactic Acid 2.9 mmol/L (0.7-2.0)
[2024-11-08] VITALS (50 sets, daily range): BP systolic 82–114; BP diastolic 51–97; BMI 20.8
[2024-11-08 00:06] LABS: Troponin I 0.013 ng/ml
[2024-11-08] MEDS: SYNTHROID 75 MCG PO (03:45)
[2024-11-08 03:46] LABS: Hematocrit 26.8 % (39.0-52.0); Mean Corp Hgb Conc. 33.6 g/dL (33.0-37.0); Mean Corpuscular Hgb 30.8 pg (27.0-31.0); Mean Corpuscular Volume 91.8 fL (80.0-94.0); Mean Platelet Volume 9.8 fL (7.4-10.4); Platelet Count 386 10^3/uL (130-400); Red Blood Cell Count 2.92 10^6/uL (4.70-6.10); Red Cell Dist. Width 13.9 % (11.5-14.5); White Blood Cell Count 33.2 10^3/uL (4.8-10.8)
--- NOTE | 2024-11-08 04:00 | PTCARENOTE ---
sys reviewed, changes noted, CHG bath done, linens changed
[2024-11-08 04:12] LABS: Troponin I 0.015 ng/ml
[2024-11-08 04:15] LABS: Lactic Acid 2.4 mmol/L (0.7-2.0)
[2024-11-08] MEDS: ZOSYN 50 IV ×4 (05:06→23:12)
[2024-11-08] MEDS: NOVOLOG FLEXPEN-LOW RESISTANCE 1 UNITS SC (05:10)
[2024-11-08] MEDS: CARDIZEM 125 IV (05:11)
[2024-11-08 05:14] LABS: Blood Urea Nitrogen 84 mg/dl (9-20); Calcium 8.9 mg/dl (8.4-10.2); Carbon Dioxide 21 mmol/L (22-30); Chloride 101 mmol/L (98-107); Estimated Creatinine Clearance 19 ml/min; Glucose 142 mg/dl (70-99); Potassium 4.1 mmol/L (3.5-5.1); Sodium 139 mmol/L (135-145); eGFR 19.44
[2024-11-08 05:22] LABS: Glucose - Point of Care 169 mg/dl (70-99)
--- NOTE | 2024-11-08 05:56 | PTCARENOTE ---
changed to 8 liters mid flow by resp therapist
[2024-11-08 05:59] LABS: Complement C3 133 mg/dl (88-165)
[2024-11-08 06:40] LABS: APTT 62.7 Sec (23.4-35.0)
--- NOTE | 2024-11-08 07:56 | W.PN.UPDATE ---
Update Note
Progress Note Update
Cancel arteriogram today
--- NOTE | 2024-11-08 08:07 | W.PN.NEPH.PH ---
Today's Communication / Plan
-
Maintain IV diuretic
No acute dialysis requirement
Assessment/Plan
-
Impression:
BRIE
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
Right plantar foot ulceration/MSSA wound cultured
CHF unknown EF onset 11/06/24
Diabetes
Hypertension
Dementia
Plan:
BRIE/CKD
cr at 3.2UA with ?UTI, neg U eosinophils, Fena low
Nonoliguric with urine output around 2 L, weight stable
Hemodynamically labile
DD infectious GN however with CHF likely cardiorenal, echo ordered
patient has had longstanding proteinuria and microscopic hematuria per review of past urinalysis
-He likely has diabetic nephropathy and/or ischemic nephropathy given his vascular disease burden
pending complements, renal US with out hydro, CT results note no hydro today
Maintain lasix IV 80mg BID today
deven BIPAP as tolerated
-KATHY and hydrochlorothiazide currently held
Metabolic acidosis persist
Antibiotics will need to be dosed appropriately for falling GFR
not ready for angio at this time
leucocytosis is worse again, CT results noted
follow labs
d/w nursing and primary
-
-
Date of Service: November 08, 2024
CC / HPI / ROS
-
Chief Complaint:
BRIE
History of Present Illness:
cr decreasing to 3.2 and remains nonoliguric
afebrile, BP soft
WBC increased to 36.4
k normal,bicarb 21
Remains on heparin and diltiazem for atrial fibrillation
Review of Systems:
demented limited history
On BIPAP , reports feeling well no pain or sob
Labs
-
Labs:
WBC 33.2 10^3/uL (4.8-10.8) H 11/08/24 03:37
RBC 2.92 10^6/uL (4.70-6.10) L 11/08/24 03:37
Hgb 9.0 g/dL (13.0-18.0) L 11/08/24 03:37
Hct 26.8 % (39.0-52.0) L 11/08/24 03:37
Plt Count 386 10^3/uL (130-400) 11/08/24 03:37
Sodium 139 mmol/L (135-145) 11/08/24 03:37
Potassium 4.1 mmol/L (3.5-5.1) 11/08/24 03:37
Chloride 101 mmol/L (98-107) 11/08/24 03:37
Carbon Dioxide 21 mmol/L (22-30) L 11/08/24 03:37
BUN 84 mg/dl (9-20) H 11/08/24 03:37
Creatinine 3.2 mg/dL (0.7-1.3) H 11/08/24 03:37
eGFR 19.44 11/08/24 03:37
Glucose 142 mg/dl (70-99) H 11/08/24 03:37
Calcium 8.9 mg/dl (8.4-10.2) 11/08/24 03:37
Xbm-Z-Trunrcryxvh Pept 31081 pg/ml 11/06/24 18:53
Albumin 2.6 g/dl (3.5-5.0) L 11/04/24 06:46
Physical Exam
-
Vital Signs:
Vital Signs
Temp Pulse Resp BP Pulse Ox
97.8 F 103 26 113/73 94
11/08/24 07:12 11/08/24 05:30 11/08/24 05:30 11/08/24 05:30 11/08/24 06:00
Cardiovascular:: Irregular rate and rhythm and Regular rate and rhythm
Respiratory:: Bilateral: Rhonchi
Lung Excursion:: Abnormal
Abdomen:: Nontender and Soft
Extremity Edema:: None: Bilateral:
Gimenez Catheter: Yes
[2024-11-08] MEDS: DESENEX/MITRAZOL/ZEASORB 1 APPLIC TOPICAL ×2 (08:27→21:46)
[2024-11-08] MEDS: HYDROPHOR 1 APPLIC TOPICAL (08:27)
[2024-11-08] MEDS: LASIX 80 MG IV (08:32)
[2024-11-08 09:19] LABS: Lactic Acid 2.8 mmol/L (0.7-2.0)
--- NOTE | 2024-11-08 09:41 | PTCARENOTE ---
Rec'd care of patient at 0700. Patient alert. Oriented conversation. Occasionally forgetful. Afib with pvcs on tele monitor. Rate in the 90-110's. Cardizem gtt @ 15. BP soft in the 90/60's. Wood Flour Miller at bedside. Advised RN to give Lasix dose and
monitor BP closely. 80 IV Lasix administered as ordered. No edema. Rec'd patient on 10 L MF. Pulse ox 86-87%. Increased to 15L MF. Minor improvement. NRB placed on top and RT contacted. Patient placed back on BiPAP 16/10 15L. Pulse ox 95%. Discussed
with Appeals Representative, patient to be placed on HFNC. Lung sounds coarse. Moist cough present, patient coughing up small amount of brown, old blood. Appeals Representative notified. +BS. Patient with 2 formed BMs yesterday. Cdiff cancelled. Gimenez in place for acute
retention. Yellow with significant amount of sediment. Right femoral triple lumen in place. Heparin/Cardizem infusing. PTT subtherapeutic. Rate increased per protocol and next PTT due at 1320. Order for PICC placed. VAT called and notified RN that
attempts were made yesterday unsuccessfully. Appeals Representative aware, femoral line to remain. US of mell HEBERT read with Appeals Representative showing acute bilateral dvts in the femoral veins. ECHO order already in place.
--- NOTE | 2024-11-08 10:33 | W.PN.CD ---
Today's Communication / Plan
-
Continue IV dilt for now
Move to Amiodarone if BP declines further
On IV heprain, continue
Move to oral anticoagulation if no procedures needed
I do not see heart failure, I will defer diuretic management to hospitalist and nephrology
Impression / Plan
-
74-year-old gentleman with history of hypertension, hypothyroidism, insulin-dependent diabetes mellitus and depression presented with right foot abscess and has developed into septicemia/septic shock and developed new onset atrial fibrillation this
morning.
Atrial fibrillation, new, pattern uncertain, sinus Oct 2024
-Provoked in the setting of septic shock
-No cardiac workup in our hospital.
-He recalls noting arrhythmia before but is not on anticoagulation therapy likely not atrial fibrillation.
-Patient has sinus 11/07/2024, then frequent PACs that has degenerated into atrial fibrillation on 11/07/2024
-Will obtain echo once the rate is better controlled
-Treat infection/sepsis
-Will rate control with diltiazem drip and start heparin
-If patient becomes hemodynamically unstable, can use IV amiodarone for better rate control.
-CHADVASC score is 4-age2, hypertension, diabetes.
Sepsis
BRIE
-Baseline creatinine 1.1. Currently creatinine is 3.9 and rising
-Consistent with septic shock
Subjective:
No CP or dyspnea
Physical Exam
Vital Signs/Labs
Vital Signs
Temp Pulse Resp BP Pulse Ox
97.8 F 118 28 102/90 97
11/08/24 07:12 11/08/24 10:00 11/08/24 10:00 11/08/24 10:00 11/08/24 09:34
11/07/24 11/08/24 11/09/24
06:59 06:59 06:59
Actual Weight 67.5 kg
11/08/24 03:37
11/08/24 03:37
PT 20.3 Sec (11.4-14.6) H 11/07/24 17:16
INR 1.71 11/07/24 17:16
APTT 62.7 Sec (23.4-35.0) H 11/08/24 06:16
11/06/24
18:53
Yil-T-Zgwcgwrlivu Pept [id number]
LAB Results
11/07/24 11/07/24 11/07/24
09:28 09:30 13:45
Troponin I < 0.012 Cancelled Cancelled
11/07/24 11/07/24 11/07/24
17:16 19:45 23:31
Troponin I < 0.012 Cancelled 0.013
11/08/24
03:37
Troponin I 0.015
Physical Exam
Constitutional: No acute distress
EENT: Anicteric
Cardiovascular: Rhythm/rate is irregular and S1S2 is normal
Respiratory: Respiratory effort normal and Crackles Absent
GI: Soft and Distention absent
Neuro/Psych: Alert
Data Reviewed
-
Date of Service: November 08, 2024
--- NOTE | 2024-11-08 10:41 | W.PN.INTV ---
Today's Communication / Plan
Recommendations
Hold diuretics
Continue antibiotics-Per infectious disease
Follow cultures
Follow renal function
Speech evaluation
Oxygen supplementation with high flow oxygen/BiPAP as needed
Echocardiogram pending
Continue heparin drip
Remains in critical care level of care.
Assessment
-
Assessment: 74-year-old male with a past medical history of uncontrolled DM type II, anxiety, depression, hypothyroidism, hypertension and ambulatory dysfunction who presented with worsening weakness and found to have right foot wound. He says he
slipped and fell about 3 days prior to arrival. He was diagnosed with cellulitis on admission and antibiotics with vancomycin + Zosyn were started. Antibiotics later changed to Ancef on 11/04. On 11/03, he underwent incision and drainage of his
right foot with debridement of necrotic tissue on the right plantar ulcer. Podiatry has been continuing to follow him. His WBC count has been continuing to rise, and so has his creatinine. Nephrology also consulted due to worsening BRIE. On the
morning of 11/07, patient became tachycardic and tachypneic. He developed atrial fibrillation with rapid ventricular rate and cardiology was consulted. Cardizem drip + heparin drip were started. He also became more hypoxic, initially requiring
nonrebreather, then required BiPAP and was still hypoxic. Patient now upgraded to ICU level care and residential child care counselor services consulted for additional management/recommendations.
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
Impression:
#Acute respiratory failure with hypoxia likely due to multifocal pneumonia + hypoventilation with severely reduced inspiratory effort now on BiPAP
#Multifocal pneumonia with tree-in-bud nodular opacities seen in the RUL + bilateral lower lobes
#Rapid A-fib
# Acute bilateral deep venous thrombosis in the femoral veins 11/07/2024
# Cannot rule out pulmonary embolism
#Leukocytosis
#Anemia
#Thrombocytosis likely reactive
#BRIE (baseline creatinine 0.9)
#DM type II (uncontrolled with HbA1c: 14.8 on 10/12/2024) c/b hyperglycemia
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
#Small bilateral pleural effusions with tree-in-bud nodularity in the lung concerning for pneumonia
#Diffuse circumferential esophageal wall thickening likely due to esophagitis
#Ileus with small bowel dilatation seen on CT abdomen/pelvis from 11/07/2024 with mild abdominal pelvic ascites
# bnormal urinalysis with 2+ leukocyte esterase and 90�100 urine WBC suspicious for UTI
Plan:
Remains critically ill: Hypoxemia requiring 10 to 15 L nasal cannula.
Okay to continue BiPAP if there is increased work of breathing.
Will need high flow oxygen to maintain pulse ox above 90% if necessary.
With abdominal distention I prefer to limit BiPAP due to aerophagia if possible. Not hypercapnic on ABG 11/07/2024.
- Family called by primary hospitalist, Dr. Dean, and patient is now DNR/DNI 11/07/2024
Speech evaluation-hopefully can advance diet to clears today.
Patient had 2 bowel movements-formed/no nausea or vomiting.
Hypoxemia multifactorial:
Bronchiolitis on CAT scan suggest infectious etiology. CAT scan without evidence of significant pulmonary edema but there is small bilateral pleural effusions.
With increased proBNP 10,300/negative troponin: Wait for echocardiogram. Evaluate for RV dysfunction.
Lower extremity Dopplers noted with bilateral femoral DVTs which are new: Cannot rule out pulmonary embolism. Heparin drip has been adjusted.
-
Rapid atrial fibrillation: Not controlled.
- Heart rate control with goal HR <110
- Continue cardizem gtt; may need amio gtt if pt becomes hypotensive or if HR still uncontrolled while on cardizem gtt
- Replete electrolytes with K>4, Mg>2
- Heparin gtt-follow PTT-hopefully can transition to oral anticoagulants in the next 24 to 48 hours.
-Normal TSH.
Cardiology following the patient: Correspondence reviewed.
Continue with Cardizem, amiodarone will be started if there is significant hypotension.
No further diuresis at this point. Hold IV Lasix
Echocardiogram once heart rate improves- pending.
Pneumonia:
- Continue with antibiotics to cover for pneumonia (tree-in-bud nodular opacities in RUL + RLL, LLL)
- not on pressors at the moment
- lactic acid slightly elevated, repeat LFT
- Infectious disease also consulted and defer antibiotics.
-Leukocytosis trending higher/afebrile 11/08/2024
- Follow-up blood cultures blood cultures negative so far.
- U. clx with yeast.
- Of note, his right foot wound culture from OR on 11/03/2024 grew Enterococcus faecalis�VRE + MSSA, and before that he had a wound culture on 11/01/2024 that grew MSSA from his left foot
Acute kidney injury:
- Renally dose all medications, trend sCr, I/O and UOP- Gimenez in place
-Hold diuretics
- cont. support, Pressors if needed.
- Nephrology on board and recommendations appreciated
- Maintain MAP>65-blood pressures are borderline. Hold diuretics.
- May need Jay if he becomes hypotensives; avoid beta-1 agonists given his tachycardia/rapid afib
- Maintain euglycemia with goal BG 140-180 with basal-bolus SQ insulin
- Trend H/H and transfuse if needed to keep Hb>7g/dL-no evidence for active bleeding.
Ileus: On CAT scan. Abdomen is slightly distended but patient denies any nausea or vomiting. He was able to move his bowels twice.
-Bowel regimen
Speech evaluation for possible diet if appropriate. Would start with clears.
-
- prn nebulized bronchodilators - not currently bronchospastic
- Incentive spirometer encouraged 10x per hour for at least 4 hrs a day
- DVT ppx: heparin gtt-follow PTT.
Maintain ICU level of care
Critical care statement: A total of 44 minutes of critical care time was provided for this patient today. This includes management of unstable vital signs, evaluation of the patient at bedside, reviewing the patient's pertinent medical records
including radiographs, microbiology, laboratory evaluations, and discussion with primary team, consultants, pharmacy, nutrition, physical therapy, case management, charge nurse, critical care nursing, and respiratory therapy.
Data:
CT chest/abdomen/pelvis without contrast 11/07/2024:
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 Tortuous ascending thoracic aorta. Limited evaluation for dissection without IV contrast
Tree-in-bud nodularity of the lungs as described above concerning for inflammation/infection
Tiny bilateral pleural effusions.
Diffuse circumferential esophageal wall thickening. This can be seen with esophagitis.
Mild small bowel dilatation. Probable ileus. Limited evaluation without oral and IV contrast. No obstructing mass nor transition zone noted.
Mild abdominopelvic ascites.
Simple left renal cyst.
Coarse pancreatic calcifications suggesting chronic pancreatitis.
Gallstones.
Simple left renal cyst.
Mild fecal material throughout the colon.
Severe diffuse bladder wall thickening. This suggests cystitis or bladder outlet obstruction.
Gimenez catheter present in the bladder.
Subjective Dataa
Subjective Data
Date of Service:
Date of Service: November 08, 2024
Chief Complaint: Manager Title Follow Up (Hypoxemic respiratory failure)
Subjective:
Continues to report exertional dyspnea with activity
This morning coughed some old blood
Remains on supplemental oxygen up to 10-15 L
Review of Systems
General: Fever (n)
Cardiopulmonary: Dyspnea, Dyspnea on Exertion and Cough
GI: Abdominal Pain (n) and Nausea (n)
Neuro: Headache (n)
Objective Data
Data Reviewed
Vital Signs / I&O / Oxygen:
Vital Signs
Temp Pulse Resp BP Pulse Ox
97.8 F 94 27 90/66 97
11/08/24 07:12 11/08/24 10:30 11/08/24 10:30 11/08/24 10:30 11/08/24 09:34
Intake and Output
11/07/24 11/08/24 11/09/24
06:59 06:59 06:59
Intake Total 630 / 630 828 / 853 106 / 106
Output Total 1949 395 / 395
Balance 630 / 630 -1122 / -1192 -289 / -289
SaO2 97
Nasal Cannula flow liters per 8
minute
Physical Exam
General: Comfortable
HEENT: Normocephalic
Cardiovascular: S1-S2
Respiratory: Rhonchi
GI: Soft and Non Distended
Neurology: Awake, Alert and No Motor Deficits
Skin: Warm
Labs/Micro/Reports
Lab Data
11/08/24 03:37
11/08/24 03:37
Laboratory Results
11/07/24 11/07/24 11/07/24
16:45 17:16 23:31
PT 20.3 H
INR 1.71
APTT 24.3 48.3 H
pH 7.48 H
pCO2 27 L
pO2 125 H
HCO3 20.1 L
O2 Delivery Level
11/08/24
06:16
PT
INR
APTT 62.7 H
pH
pCO2
pO2
HCO3
O2 Delivery Level
Microbiology
11/07/24 07:01 Blood/Venous Blood Culture - Preliminary
No Growth in 24 hours- Final report to follow
11/06/24 18:53 Blood/Venous Blood Culture - Preliminary
No Growth in 24 hours- Final report to follow
11/03/24 18:53 Foot - Right Anaerobic Culture - Preliminary
Culture pending. Anaerobic cultures are examined after 3
days incubation. Additional information to follow.
11/05/24 15:34 Urine Urine Culture - Preliminary
Sparse growth, too young to be identified. Further results
to follow.
11/03/24 18:53 Foot - Right Wound Culture - Preliminary
Enterococcus faecalis - VRE
S aureus-Methicillin Sensitive
11/03/24 18:53 Foot - Right Gram Stain - Preliminary
11/01/24 19:33 Blood/Venous Blood Culture - Final
No Growth - Final Report
11/01/24 19:32 Blood/Venous Blood Culture - Final
No Growth - Final Report
11/06/24 14:11 Nasal Swab Influenza Types A & B (JAMARCUS) - Final
Negative for Influenza A & B, NAAT
Negative results must be combined with clinical observations
and patient history.
Nucleic Acid Amplification test (NAAT)performed on the
[employer] platform.
--- NOTE | 2024-11-08 10:50 | CM ---
Chart reviewed
Patient accepted at [facility].
Son Alexander to [facility]
PLAN: SNF when medically stable.
--- NOTE | 2024-11-08 10:54 | W.PN.ID1 ---
Date of Service
Date of Service: November 08, 2024
Today's Communication
Continue antibiotics.
Assessment / Plan
Right foot cellulitis
Suspected right metatarsal osteomyelitis (on the basis of exposed bone)
Leukocytosis
BRIE
HTN
DM type II
Recommendations:
Wound cultures reveal the presence of VRE (ampicillin sensitive)
Continue with Zosyn 2.25 g IV every 6 hours (dose adjusted for renal insufficiency.
Continue with local care to the wound.
Await further workup from a Vascular Surgery standpoint.
Await further workup from Podiatry.
Monitor white count and temperature curve.
Monitor creatinine and est CrCl
Further recommendations as additional data is returned.
����������������������������������������������������������
Chief Complaint
-: Cellulitis and Other (Right foot wound.)
Subjective / Review of Systems
Patient seen and examined. Noted to have increased O2 requirements today. Also found to have bilateral LE DVTs
Review of Systems: No Fever
Vital Signs / Physical Exam
Vital Signs
Vital Signs
Temp Pulse Resp BP Pulse Ox
97.8 F 94 27 90/66 97
11/08/24 07:12 11/08/24 10:30 11/08/24 10:30 11/08/24 10:30 11/08/24 09:34
Physical Exam
Constitutional: Acutely Ill and Non-toxic
Eyes: Sclera Anicteric
Cardiovascular: S1/S2; Negative S3/S4
Pulmonary: Coarse and Other (Mildly labored.)
Gastrointestinal: Soft and Non Distended
Skin: Warm and Dry; Negative Rash or Jaundice
Wound: Other (Base of right hallux with wound. First metatarsal head exposed. Purulent drainage noted. Hallux is erythematous and quite swollen.)
Neurological: Awake and Alert
Psychological: Calm
Objective Data
Lab Data
Lab Results
11/08/24 03:37
11/08/24 03:37
PT 20.3 Sec (11.4-14.6) H 11/07/24 17:16
INR 1.71 11/07/24 17:16
APTT 62.7 Sec (23.4-35.0) H 11/08/24 06:16
Estimated Creat Clear 19 ml/min 11/08/24 03:37
Lactic Acid 2.8 mmol/L (0.7-2.0) H 11/08/24 08:56
Total Bilirubin 0.5 mg/dl (0.2-1.3) 11/04/24 06:46
AST 21 U/L (17-59) 11/04/24 06:46
ALT 22 U/L (0-50) 11/04/24 06:46
Alkaline Phosphatase 135 U/L (38-126) H 11/04/24 06:46
Most recent labs reviewed.
Micro Results:
11/05/24 15:34 Urine Culture - Final
Urine Yeast
11/07/24 07:01 Blood Culture - Preliminary
Blood/Venous No Growth in 24 hours- Final report to follow
11/06/24 18:53 Blood Culture - Preliminary
Blood/Venous No Growth in 24 hours- Final report to follow
11/03/24 18:53 Anaerobic Culture - Preliminary
Foot - Right Culture pending. Anaerobic cultures are examined after 3
days incubation. Additional information to follow.
11/03/24 18:53 Wound Culture - Preliminary
Foot - Right Enterococcus faecalis - VRE
S aureus-Methicillin Sensitive
Gram Stain - Preliminary
11/01/24 19:33 Blood Culture - Final
Blood/Venous No Growth - Final Report
11/01/24 19:32 Blood Culture - Final
Blood/Venous No Growth - Final Report
11/06/24 14:11 Influenza Types A & B (JAMARCUS) - Final
Nasal Swab Negative for Influenza A & B, NAAT
Negative results must be combined with clinical observations
and patient history.
Nucleic Acid Amplification test (NAAT)performed on the
[employer] platform.
11/02/24 18:55 MRSA Screen - Final
Nose No Methicillin Resistant Staphylococcus aureus isolated.
11/01/24 19:32 Wound Culture - Final
Foot - Left S aureus-Methicillin Sensitive
Gram Stain - Final
Imaging:
11/02/2024 MRI right foot: No convincing evidence for bone marrow signal changes to indicate acute osteomyelitis. A plantar soft tissue wound at the level of the first metatarsal phalangeal joint is noted. Overall evaluation is somewhat limited due
to motion artifact in the absence of intravenous contrast. Please see full dictation for additional detail.
Care Review
Plan reviewed with: Physician (Critical Care)
--- NOTE | 2024-11-08 11:15 | W.PN.UPDATE ---
Update Note
Progress Note Update
Maintain right femoral triple-lumen catheter.
Right IJ was attempted without success
Peripheral lines difficult to obtain
PICC line was attempted without success.
Keep anticoagulation for now given acute DVTs.
Will readdress IV access in the next 24 to 48 hours.
--- NOTE | 2024-11-08 11:44 | PTCARENOTE ---
Patient placed on HFNC 50L 70% by RT. Pulse ox 92%. Remains in afib, rate in the 90-100's. Cardizem @ 15. Heparin @ 1200. Drowsy. Audible crackles anteriorly. Speech to see patient prior to PO intake. +BM. Output in [place] decreasing. IV diuretics
discontinued. Son at bedside for updates.
[2024-11-08] MEDS: NOVOLOG FLEXPEN-LOW RESISTANCE 2 UNITS SC (11:52)
[2024-11-08 12:03] LABS: Glucose - Point of Care 216 mg/dl (70-99)
--- NOTE | 2024-11-08 12:14 | PTCARENOTE ---
HFNC increased to 100%. Patient coughing up a moderate amount of hemoptysis. Oral suctioning provided. Urine output down to 15/hr. Aircraft Maintenance Manager notified.
--- NOTE | 2024-11-08 12:51 | PTCARENOTE ---
Cardizem stopped due to hypotension. Order for 500mL NS @ 100 mL/hr ordered by Nephro. Quality Control to switch patient over to IV Amiodarone.
[2024-11-08] MEDS: NSS 500 IV (13:07)
--- NOTE | 2024-11-08 13:18 | PTCARENOTE ---
Refuse Collector at bedside. Dressing removed. Instructed RN to redress with dry dressing- 4x4 gauze and jannette.
--- NOTE | 2024-11-08 13:32 | W.PN.HOSP.TC ---
Today's Communication/Plan
-
Continue current care
Assessment / Plan
Assessment / Plan
Gen-AAOx3, NAD
HEENT-NC, AT, anicteric, clear oral mm
Neck-supple
CV-reg, no M, +S1/S2
Lungs-bilateral rhonchi
Abd-soft, NT, ND
Ext-no edema
Musculoskeletal-no cyanosis, clubbing
Skin-warm and dry
Neuro-grossly non-focal
Psych-calm, cooperative
Acute Hypoxic Respiratory Failure -suspect multifactorial etiology including pneumonia, pulmonary emboli, etc. Unclear if heart failure contributing.
Currently on high flow nasal cannula, wean down as able. Pulmonary following.
Acute CHF, unspecified
-Cont IV diuresis - -80mg IV lasix BID - atleast for today
-monitor BMP with diuresis
-ECHO f/u
-bnp 10k
Atrial fibrillation
� Start Cardizem drip
� Amiodarone drip if becoming hypotensive
� Start heparin drip
Right foot cellulitis/acute osteomyelitis -podiatry following.
-Edema versus loculated fluid in the plantar medial soft tissues adjacent to the base of the first metatarsal measuring approximately 2.8 x 1.2 x 1.5 cm: phlegmonous changes versus a developing abscess
-F/u Blood no growth today; cultures MSSA and enterococcus
-F/u MRSA PCR negative
� Switch to Zosyn now with UTI
-I&D 11/03
-Tylenol as needed for pain or fever
�Noninvasive studies, vascular consulted -eventual angiogram when renal function allows per vascular surgery.
Sepsis
� Most likely secondary to above infection
� Follow-up blood cultures
� Monitor fever curve, white count
� Continue Zosyn
-ID consulted
- Podiatry/Vascular work up
BRIE -improving.
-Septic ATN v AIN v pre-renal(Cardiorenal)
� Switch to Zosyn
� Hold IVF due to crackles for now
� Avoid nephrotoxic agents
- Urine Eosinophils f/u - negative
-Monitor with diuresis
-will require contrast prophylaxis with IVF prior to angiogram when this is pursued
Type 2 diabetes mellitus with hyperglycemia -hemoglobin A1c 14.8%. Glucose 142 this morning.
-NovoLog 15 units 3 times a day
-Lantus 15 units at bedtime (reduce to 7qhs while on bipap)
-Sliding scale
-Hold metformin
fall likely mechanical
-PT/OT consulted
Essential hypertension
-Hold antihypertensives due to soft BPs and BIRE
Hyperlipidemia
-Continue statin
Depression
-citalopram continued
Hypothyroidism
-Levothyroxine continued
Hyperlipidemia
-Statin continued
Nicotine dependence
-Denied nicotine patch
DVT prophylaxis
-HSQ
DNR
Anticipated Discharge: > 48 hours
Subjective/Interval History
-
Date of Service: November 08, 2024
Patient seen and examined. Asking to eat. Denies shortness of breath.
Objective Data
-
Labs:
Laboratory Results
11/08/24 11/08/24 11/08/24
03:37 06:16 13:02
WBC 33.2 H
Hgb 9.0 L
Hct 26.8 L
Plt Count 386
APTT 62.7 H Pending
Sodium 139
Potassium 4.1
Chloride 101
Carbon Dioxide 21 L
BUN 84 H
Creatinine 3.2 H
Glucose 142 H
Calcium 8.9
Vital Signs:
Vital Signs
Temp Pulse Resp BP Pulse Ox
97.0 F 108 33 90/61 100
11/08/24 11:16 11/08/24 13:00 11/08/24 13:00 11/08/24 13:00 11/08/24 12:30
I&O
11/07/24 11/08/24 11/09/24
06:59 06:59 06:59
Intake Total 630 / 630 828 / 853 272 / 272
Output Total 1949 465 / 465
Balance 630 / 630 -1122 / -1192 -193 / -193
Review of Systems
-
History Source: Patient
All other systems: Reviewed and negative
[2024-11-08] MEDS: CORDARONE 518 MG IV (13:34)
[2024-11-08 13:36] LABS: APTT 112.1 Sec (23.4-35.0)
[2024-11-08 13:41] LABS: Lactic Acid 5.2 mmol/L (0.7-2.0)
--- NOTE | 2024-11-08 13:42 | PTCARENOTE ---
Amiodarone gtt initiated. No bolus.
--- NOTE | 2024-11-08 13:44 | PTCARENOTE ---
Lactic acid 5.2. notified.
[2024-11-08 14:04] LABS: Magnesium 2.1 mg/dl (1.6-2.3)
--- NOTE | 2024-11-08 14:07 | W.PN.UPDATE ---
Update Note
Progress Note Update
Patient hypotensive on Cardizem drip.
Will transition to amiodarone.
Repeat lactate level
Repeat electrolytes
Continue oxygen supplementation. Continue to hold diuretic
--- NOTE | 2024-11-08 15:14 | W.PN.POD ---
Today's Communication
Today's Communication
Podiatry will con to monitor the Rt foot
Assessment / Plan
-
A/P : Diabetic Rt foot necrotic ulcer with exposed rt 1st met head
S/P : Rt foot I & D with debridement of necrotic tissue POD #5 on 08/04/24
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
Plan : Patient currently in ICU for critical care.
Podiatry will cont to monitor the Rt foot/ Rt big toe discoloration. will cont with dry gauze dressings to Rt foot once daily.
Probably need a Rt hallux amputation to the least due to cyanotic appearance when medically stable ,
Changed dressings to Rt foot ,
Subjective
Chief Complaint
Rt foot necrotic ulcer.
Subjective
Patient seen in ICU, admitted to ICU with acute resp failure on Oxygen due to DVT'S and pneumonia that he developed .
He is in no acute distress, intact dressings to Rt foot
Objective
Temp Pulse Resp BP Pulse Ox
98.2 F 111 24 97/77 97
11/08/24 14:42 11/08/24 15:00 11/08/24 15:00 11/08/24 15:00 11/08/24 15:00
11/08/24 03:37
11/08/24 03:37
Vital Signs and Lab results were reviewed.
Rt foot non palpable pedal pulses.
Dopplerable Rt PT pulse
Rt foot plantar aspect surgically drained site submet 1st with large ulcer with soft tissue loss, no purulence, no foul odor noted. . Fibrotic ulcer at plantar aspect of the Rt hallux with deep tissue loss /exposed tendons . no new areas of any
necrotic tissue noted. No erythema,
Rt hallux with minimal dusky discoloration
--- NOTE | 2024-11-08 16:00 | PTCARENOTE ---
Minor changes in assessment. Remains in afib on tele monitor. Rate increased 110-120's. Amio infusing as ordered. BP stable. No pressor requirements. HFNC 60L 80%. Patient removed nasal cannula and quickly desaturated to 76%. Pulse ox very slow to
recover. Lung sounds unchanged. Urine output improved to 50-60 mL/hr.
--- NOTE | 2024-11-08 17:01 | W.PN.UPDATE ---
Update Note
Progress Note Update
Discussed with son, family would not want additional interventions at this point, including more pressors or procedures.
If there is not improvement, then in AM will consult palliative care.
May use morphine PRN overnight for comfort if there is increased work of breathing.
Hospice may be an option.
[2024-11-08] MEDS: CELEXA PO (17:08)
[2024-11-08] MEDS: CRESTOR PO (17:08)
[2024-11-08 17:26] LABS: Lactic Acid 2.6 mmol/L (0.7-2.0)
[2024-11-08] MEDS: NOVOLOG FLEXPEN-LOW RESISTANCE 3 UNITS SC (17:42)
[2024-11-08 17:54] LABS: Glucose - Point of Care 285 mg/dl (70-99)
[2024-11-08] MEDS: HEPARIN 25000 UNITS/250 ML IV (18:00)
[2024-11-08] MEDS: NOVOLOG FLEXPEN 4 UNITS SC (19:38)
[2024-11-08 19:50] LABS: APTT 88.4 Sec (23.4-35.0)
[2024-11-08 19:51] LABS: Lactic Acid 2.5 mmol/L (0.7-2.0)
--- NOTE | 2024-11-08 20:00 | PTCARENOTE ---
Rec'd pt awake, lethargic, denies pain, oriented to person only, Afib w/ occas pvc's, amidarone gtt decr to 0.5 per protocal, hep gtt at 1100 units/hr, distal pulses via doppler, R foot dsg intact, o2 via hi flow 60 liters/ 92%, sat 90, when o2 off
sat dropped to 75%, lungs coarse throughout, decr in bases, sm amt brown secretions, + bowel sounds, no bm, abd osft, NPO, hamilton draining yellow w/ sediment, 4 units novolog ins SC given per order
[2024-11-08] MEDS: LANTUS 0.1 UNITS SC (21:46)
[2024-11-08 21:53] LABS: Glucose - Point of Care 244 mg/dl (70-99)
[2024-11-08] MEDS: NOVOLOG FLEXPEN-HIGH RESISTANCE 7 UNITS SC (23:11)
[2024-11-08 23:22] LABS: Glucose - Point of Care 272 mg/dl (70-99)
--- NOTE | 2024-11-08 23:55 | PTCARENOTE ---
sys reviewed, CHG bath done, linens changed
[2024-11-09] VITALS (39 sets, daily range): BP systolic 61–106; BP diastolic 46–93; BMI 20.2
--- NOTE | 2024-11-09 00:04 | PTCARENOTE ---
Baljinder Hernandez NP aware of bp- per discussion w/ family earlier today, no pressors
[2024-11-09 02:01] LABS: Hematocrit 21.6 % (39.0-52.0); Hemoglobin 7.3 g/dL (13.0-18.0); Mean Corp Hgb Conc. 33.8 g/dL (33.0-37.0); Mean Corpuscular Hgb 31.9 pg (27.0-31.0); Mean Corpuscular Volume 94.3 fL (80.0-94.0); Mean Platelet Volume 10.2 fL (7.4-10.4); Platelet Count 338 10^3/uL (130-400); Red Blood Cell Count 2.29 10^6/uL (4.70-6.10); Red Cell Dist. Width 14.2 % (11.5-14.5); White Blood Cell Count 35.6 10^3/uL (4.8-10.8)
--- NOTE | 2024-11-09 02:01 | PTCARENOTE ---
sat 87%, NRB added in addition to hi flow
[2024-11-09 02:10] LABS: APTT 103.8 Sec (23.4-35.0)
[2024-11-09 02:50] LABS: Blood Urea Nitrogen 95 mg/dl (9-20); Calcium 8.7 mg/dl (8.4-10.2); Carbon Dioxide 21 mmol/L (22-30); Chloride 103 mmol/L (98-107); Estimated Creatinine Clearance 23 ml/min; Glucose 218 mg/dl (70-99); Potassium 3.8 mmol/L (3.5-5.1); Sodium 139 mmol/L (135-145); eGFR 23.83
[2024-11-09] MEDS: NOVOLOG FLEXPEN 4 UNITS SC (03:00)
--- NOTE | 2024-11-09 03:01 | PTCARENOTE ---
4 units novolog ins sc given per order
--- NOTE | 2024-11-09 03:55 | PTCARENOTE ---
sys reviewed, changes noted
[2024-11-09] MEDS: MORPHINE SULFATE 2 MG IV (04:40)
--- NOTE | 2024-11-09 04:43 | PTCARENOTE ---
restless, RR 42,morphine 2mg iv given as ordered
[2024-11-09] MEDS: ZOSYN 50 IV ×2 (05:01→11:11)
[2024-11-09] MEDS: NOVOLOG FLEXPEN-HIGH RESISTANCE 4 UNITS SC (05:01)
[2024-11-09 05:12] LABS: Glucose - Point of Care 225 mg/dl (70-99)
[2024-11-09] MEDS: SYNTHROID PO (05:40)
--- NOTE | 2024-11-09 08:35 | W.PN.ID1 ---
Date of Service
Date of Service: November 09, 2024
Today's Communication
Continue antibiotics.
Assessment / Plan
Right foot cellulitis
Suspected right metatarsal osteomyelitis (on the basis of exposed bone)
Leukocytosis
BRIE
HTN
DM type II
Recommendations:
Wound cultures reveal the presence of VRE (ampicillin sensitive)
Continue with Zosyn 2.25 g IV every 6 hours (dose adjusted for renal insufficiency).
Continue with local care to the wound.
Await further workup from a Vascular Surgery standpoint.
Await further workup from Podiatry.
Monitor white count and temperature curve.
Monitor creatinine and est CrCl
Goals of care discussions noted. Patient may be moving towards hospice.
����������������������������������������������������������
Chief Complaint
-: Cellulitis and Other (Right foot wound.)
Subjective / Review of Systems
Patient seen and examined. Currently on high flow O2 and supplemental O2 via NRB
Vital Signs / Physical Exam
Vital Signs
Vital Signs
Temp Pulse Resp BP Pulse Ox
98.9 F 93 37 95/80 92
11/09/24 03:54 11/09/24 06:00 11/09/24 06:00 11/09/24 06:00 11/09/24 05:00
Physical Exam
Constitutional: Acutely Ill and Non-toxic
Eyes: Sclera Anicteric
Cardiovascular: S1/S2; Negative S3/S4
Pulmonary: Coarse and Other (Mildly labored.)
Gastrointestinal: Soft and Non Distended
Skin: Warm and Dry; Negative Rash or Jaundice
Wound: Other (Base of right hallux with wound. First metatarsal head exposed. Purulent drainage noted. Hallux is erythematous and quite swollen.)
Neurological: Awake and Alert
Psychological: Calm and Confused
Objective Data
Lab Data
Lab Results
11/09/24 01:51
11/09/24 01:51
PT 20.3 Sec (11.4-14.6) H 11/07/24 17:16
INR 1.71 11/07/24 17:16
APTT 103.8 Sec (23.4-35.0) H 11/09/24 01:51
Estimated Creat Clear 23 ml/min 11/09/24 01:51
Lactic Acid 2.5 mmol/L (0.7-2.0) H 11/08/24 19:30
Total Bilirubin 0.5 mg/dl (0.2-1.3) 11/04/24 06:46
AST 21 U/L (17-59) 11/04/24 06:46
ALT 22 U/L (0-50) 11/04/24 06:46
Alkaline Phosphatase 135 U/L (38-126) H 11/04/24 06:46
Most recent labs reviewed.
Micro Results:
11/07/24 07:01 Blood Culture - Preliminary
Blood/Venous No Growth in 48 hours- Final report to follow
11/06/24 18:53 Blood Culture - Preliminary
Blood/Venous No Growth in 48 hours- Final report to follow
11/03/24 18:53 Anaerobic Culture - Preliminary
Foot - Right Culture pending. Anaerobic cultures are examined after 3
days incubation. Additional information to follow.
11/05/24 15:34 Urine Culture - Final
Urine Yeast
11/03/24 18:53 Wound Culture - Preliminary
Foot - Right Enterococcus faecalis - VRE
S aureus-Methicillin Sensitive
Gram Stain - Preliminary
11/01/24 19:33 Blood Culture - Final
Blood/Venous No Growth - Final Report
11/01/24 19:32 Blood Culture - Final
Blood/Venous No Growth - Final Report
11/06/24 14:11 Influenza Types A & B (JAMARCUS) - Final
Nasal Swab Negative for Influenza A & B, NAAT
Negative results must be combined with clinical observations
and patient history.
Nucleic Acid Amplification test (NAAT)performed on the
[employer] platform.
11/02/24 18:55 MRSA Screen - Final
Nose No Methicillin Resistant Staphylococcus aureus isolated.
11/01/24 19:32 Wound Culture - Final
Foot - Left S aureus-Methicillin Sensitive
Gram Stain - Final
Imaging:
11/02/2024 MRI right foot: No convincing evidence for bone marrow signal changes to indicate acute osteomyelitis. A plantar soft tissue wound at the level of the first metatarsal phalangeal joint is noted. Overall evaluation is somewhat limited due
to motion artifact in the absence of intravenous contrast. Please see full dictation for additional detail.
Care Review
Plan reviewed with: Physician (Critical Care)
--- NOTE | 2024-11-09 08:36 | W.PN.NEPH.PH ---
Today's Communication / Plan
-
holding lasix
Follow BMP
Assessment/Plan
-
Impression:
BRIE
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
Right plantar foot ulceration/MSSA wound cultured
CHF unknown EF onset 11/06/24
Diabetes
Hypertension
Dementia
Plan:
BRIE/CKD
Creatinine down to 2.7 nonoliguric with urine output of 1 L
Family now wishing to pursue a more palliative course
lasix now held,weights down and patient hemodynamically unstable
Fluid bolus given yesterday to support blood pressure
Hemoglobin dropped to 7.3, heparin stopped
Patient requires high flow O2
UA with ?UTI, neg U eosinophils, Fena low
Hemodynamically labile
DD infectious GN however with CHF likely cardiorenal, echo ordered
patient has had longstanding proteinuria and microscopic hematuria per review of past urinalysis
He likely has diabetic nephropathy and/or ischemic nephropathy given his vascular disease burden
C4 low , renal US with out hydro, CT results note no hydro today
ween BIPAP as tolerated
KATHY and hydrochlorothiazide currently held
Metabolic acidosis persist
Antibiotics will need to be dosed appropriately for falling GFR
not ready for angio at this time
We may be pursuing a palliative course
follow labs
d/w nursing and primary
Patient critically ill with ongoing hypoxia renal failure and hemodynamic instability with worsening anemia
31 minutes of critical care time spent with patient
-
-
Date of Service: November 09, 2024
CC / HPI / ROS
-
Chief Complaint:
BRIE
History of Present Illness:
cr decreasing to 2.7 and remains nonoliguric
Hemodynamically unstable
Anemia worsening with hemoglobin dropped to 7.3
500 cc fluid bolus given yesterday to support blood pressure
Amiodarone drip for atrial fibrillation
Review of Systems:
demented limited history
On High flow o2
No fevers
Weight down
Labs
-
Labs:
WBC 35.6 10^3/uL (4.8-10.8) H 11/09/24 01:51
RBC 2.29 10^6/uL (4.70-6.10) L 11/09/24 01:51
Hgb 7.3 g/dL (13.0-18.0) L 11/09/24 01:51
Hct 21.6 % (39.0-52.0) L 11/09/24 01:51
Plt Count 338 10^3/uL (130-400) 11/09/24 01:51
Sodium 139 mmol/L (135-145) 11/09/24 01:51
Potassium 3.8 mmol/L (3.5-5.1) 11/09/24 01:51
Chloride 103 mmol/L (98-107) 11/09/24 01:51
Carbon Dioxide 21 mmol/L (22-30) L 11/09/24 01:51
BUN 95 mg/dl (9-20) H 11/09/24 01:51
Creatinine 2.7 mg/dL (0.7-1.3) H 11/09/24 01:51
eGFR 23.83 11/09/24 01:51
Glucose 218 mg/dl (70-99) H 11/09/24 01:51
Calcium 8.7 mg/dl (8.4-10.2) 11/09/24 01:51
Fwp-R-Xxmolbbfvev Pept 65074 pg/ml 11/06/24 18:53
Albumin 2.6 g/dl (3.5-5.0) L 11/04/24 06:46
Physical Exam
-
Vital Signs:
Vital Signs
Temp Pulse Resp BP Pulse Ox
98.9 F 93 37 95/80 92
11/09/24 03:54 11/09/24 06:00 11/09/24 06:00 11/09/24 06:00 11/09/24 05:00
Cardiovascular:: Irregular rate and rhythm
Respiratory:: Bilateral: Coarse
Lung Excursion:: Normal
Abdomen:: Nontender and Soft
Bowel Sounds:: Decreased
Extremity Edema:: None: Bilateral:
[2024-11-09] MEDS: DESENEX/MITRAZOL/ZEASORB 1 APPLIC TOPICAL (08:46)
[2024-11-09] MEDS: HYDROPHOR 1 APPLIC TOPICAL (08:47)
--- NOTE | 2024-11-09 09:30 | W.PN.CD ---
Today's Communication / Plan
-
-
Agree with move to amiodarone
H/H dropped and now off IV heparin
I do not see heart failure and I will defer diuresis to nephrology (none given today)
Family considering move to palliative care
Impression / Plan
-
74-year-old gentleman with history of hypertension, hypothyroidism, insulin-dependent diabetes mellitus and depression presented with right foot abscess and has developed into septicemia/septic shock and developed new onset atrial fibrillation this
morning.
Atrial fibrillation, new, pattern uncertain, onset 11/07/2024
- BP too soft for IV dilt
- Now on IV Amio with rates at rest in high 90s
- Off anticoagulation with fall in H/H
- [id number] score 4 (age2, HTN, DM, and perhaps a point for DVT)
Sepsis
BRIE
-Baseline creatinine 1.1. Currently creatinine is 3.9 => 2.7
Subjective:
No CP or dyspnea
Physical Exam
Vital Signs/Labs
Vital Signs
Temp Pulse Resp BP Pulse Ox
98.9 F 93 37 95/80 92
11/09/24 03:54 11/09/24 06:00 11/09/24 06:00 11/09/24 06:00 11/09/24 05:00
11/08/24 11/09/24 11/10/24
06:59 06:59 06:59
Actual Weight 67.5 kg 65.7 kg
11/09/24 01:51
11/09/24 01:51
PT 20.3 Sec (11.4-14.6) H 11/07/24 17:16
INR 1.71 11/07/24 17:16
APTT 103.8 Sec (23.4-35.0) H 11/09/24 01:51
Magnesium 2.1 mg/dl (1.6-2.3) 11/08/24 03:37
11/06/24
18:53
Rvd-Y-Oitrsvaatdf Pept [id number]
LAB Results
11/07/24 11/07/24 11/07/24
09:28 09:30 13:45
Troponin I < 0.012 Cancelled Cancelled
11/07/24 11/07/24 11/07/24
17:16 19:45 23:31
Troponin I < 0.012 Cancelled 0.013
11/08/24
03:37
Troponin I 0.015
Physical Exam
Constitutional: No acute distress
Cardiovascular: Rhythm/rate is irregular, S1S2 is normal and Rub absent
Respiratory: Respiratory effort normal and Crackles Absent
GI: Soft and Distention absent
Neuro/Psych: Alert
Data Reviewed
-
Date of Service: November 09, 2024
--- NOTE | 2024-11-09 10:08 | PTCARENOTE ---
pt awake and confused to time and place , denies complaints of pain , pt hemoglobin dropped to 7.3 , heparin gtt is now off as ordered, no signs of bleeding at this time , pt is in afib on monitor, blood pressure is 88/64. pt is a DNR and plan is
not to add any vasopressors , pt is now consulted for palliative care , no family present at this time , he is on 100% NRBM and HFNC 65% and 94% with sats ranging from 88% to 98% , lungs are diminished and course throughout , he has a very weak non
productive cough. He is asking to eat and drink , he is approved for pleasure feeding
--- NOTE | 2024-11-09 10:18 | W.PN.INTV ---
Today's Communication / Plan
Recommendations
Discontinue heparin due to low hemoglobin
No escalation of care
Comfort food
Morphine as needed for increased work of breathing
Continue oxygen supplementation
Palliative care consult-likely moving towards hospice.
Will maintain critical care level for now but if moving towards hospice then transition to [facility].
Assessment
-
Assessment: 74-year-old male with a past medical history of uncontrolled DM type II, anxiety, depression, hypothyroidism, hypertension and ambulatory dysfunction who presented with worsening weakness and found to have right foot wound. He says he
slipped and fell about 3 days prior to arrival. He was diagnosed with cellulitis on admission and antibiotics with vancomycin + Zosyn were started. Antibiotics later changed to Ancef on 11/04. On 11/03, he underwent incision and drainage of his
right foot with debridement of necrotic tissue on the right plantar ulcer. Podiatry has been continuing to follow him. His WBC count has been continuing to rise, and so has his creatinine. Nephrology also consulted due to worsening BRIE. On the
morning of 11/07, patient became tachycardic and tachypneic. He developed atrial fibrillation with rapid ventricular rate and cardiology was consulted. Cardizem drip + heparin drip were started. He also became more hypoxic, initially requiring
nonrebreather, then required BiPAP and was still hypoxic. Patient now upgraded to ICU level care and die drawing checker services consulted for additional management/recommendations.
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
Impression:
#Acute respiratory failure with hypoxia likely due to multifocal pneumonia + hypoventilation with severely reduced inspiratory effort now on BiPAP
#Multifocal pneumonia with tree-in-bud nodular opacities seen in the RUL + bilateral lower lobes
#Rapid A-fib
# Acute bilateral deep venous thrombosis in the femoral veins 11/07/2024
# Cannot rule out pulmonary embolism
#Leukocytosis
#Anemia
#Thrombocytosis likely reactive
#BRIE (baseline creatinine 0.9)
#DM type II (uncontrolled with HbA1c: 14.8 on 10/12/2024) c/b hyperglycemia
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
#Small bilateral pleural effusions with tree-in-bud nodularity in the lung concerning for pneumonia
#Diffuse circumferential esophageal wall thickening likely due to esophagitis
#Ileus with small bowel dilatation seen on CT abdomen/pelvis from 11/07/2024 with mild abdominal pelvic ascites
# bnormal urinalysis with 2+ leukocyte esterase and 90�100 urine WBC suspicious for UTI
Plan:
Remains critically ill, not improving: On high flow oxygen 100% FiO2.
Increased work of breathing with minimal activity.
Continue BiPAP if there is increased work of breathing-if patient allows.
With abdominal distention I prefer to limit BiPAP due to aerophagia if possible. Not hypercapnic on ABG 11/07/2024.
- Family called by primary hospitalist, Dr. Dean, and patient is now DNR/DNI 11/07/2024
-Dr. Alfaro updated family 11/08/2024-would not want escalation of care, moving towards palliative/hospice care.
Okay to give patient comfort food. Family agreed.
Morphine as needed for increased work of breathing has been added
Palliative care consult 11/09/2024.
Hypoxemia multifactorial:
Bronchiolitis on CAT scan suggest infectious etiology. CAT scan without evidence of significant pulmonary edema but there is small bilateral pleural effusions.
With increased proBNP 10,300/negative troponin: Wait for echocardiogram. Evaluate for RV dysfunction.
Lower extremity Dopplers noted with bilateral femoral DVTs which are new: Cannot rule out pulmonary embolism. Heparin drip has been adjusted.
-
Rapid atrial fibrillation:
- Heart rate control with goal HR <110
-Amiodarone drip is started 11/08/2024 due to hypotension.
-Hold heparin drip today due to hemoglobin of 7.3. Continues to have intermittent hemoptysis with old blood.
-Normal TSH.
Cardiology following the patient: Correspondence reviewed.
No further diuresis at this point. Hold IV Lasix
Echocardiogram: Normal LVEF. No significant pulmonary hypertension
Pneumonia:
- Continue with antibiotics to cover for pneumonia (tree-in-bud nodular opacities in RUL + RLL, LLL)
- not on pressors at the moment
- lactic acid slightly elevated, repeat LFT
- Infectious disease also consulted and defer antibiotics.
-Leukocytosis trending higher/afebrile 11/09/2020
- Follow-up blood cultures blood cultures negative so far.
- U. clx with yeast.
- Of note, his right foot wound culture from OR on 11/03/2024 grew Enterococcus faecalis�VRE + MSSA, and before that he had a wound culture on 11/01/2024 that grew MSSA from his left foot
Acute kidney injury:
- Renally dose all medications, trend sCr, I/O and UOP- Gimenez in place
-Hold diuretics
- cont. support, family would not want to escalate therapy and add more vasopressors.
- Nephrology on board and recommendations appreciated
Okay to use Jay-Synephrine if needed
- Maintain euglycemia with goal BG 140-180 with basal-bolus SQ insulin
- Trend H/H and transfuse if needed to keep Hb>7g/dL-no evidence for active bleeding.
Hold heparin as hemoglobin is trending lower to 7.3
Family would not want transfusion.
Toxic metabolic encephalopathy. Intermittently confused. Delirium.
Ileus: On CAT scan. Abdomen is slightly distended but patient denies any nausea or vomiting. He was able to move his bowels twice.
-Bowel regimen
Comfort food
-
- prn nebulized bronchodilators - not currently bronchospastic
- Incentive spirometer encouraged 10x per hour for at least 4 hrs a day
- DVT ppx: heparin gtt-follow PTT.
Palliative care has been consulted. Likely will downgrade later today if hospice/comfort is confirmed.
I will update son when he arrives later today. In my discussions on 11/08/2024 they would not want aggressive care but he was going to discuss with his brother.
Critical care statement: A total of 31 minutes of critical care time was provided for this patient today. This includes management of unstable vital signs, evaluation of the patient at bedside, reviewing the patient's pertinent medical records
including radiographs, microbiology, laboratory evaluations, and discussion with primary team, consultants, pharmacy, nutrition, physical therapy, case management, charge nurse, critical care nursing, and respiratory therapy.
Data:
CT chest/abdomen/pelvis without contrast 11/07/2024:
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 Tortuous ascending thoracic aorta. Limited evaluation for dissection without IV contrast
Tree-in-bud nodularity of the lungs as described above concerning for inflammation/infection
Tiny bilateral pleural effusions.
Diffuse circumferential esophageal wall thickening. This can be seen with esophagitis.
Mild small bowel dilatation. Probable ileus. Limited evaluation without oral and IV contrast. No obstructing mass nor transition zone noted.
Mild abdominopelvic ascites.
Simple left renal cyst.
Coarse pancreatic calcifications suggesting chronic pancreatitis.
Gallstones.
Simple left renal cyst.
Mild fecal material throughout the colon.
Severe diffuse bladder wall thickening. This suggests cystitis or bladder outlet obstruction.
Gimenez catheter present in the bladder.
Subjective Dataa
Subjective Data
Date of Service:
Date of Service: November 09, 2024
Chief Complaint: [employer] Fishing Vessel Follow Up (Hypoxemic respiratory failure)
Subjective:
Overnight remains on high flow oxygen
Intermittently confused
Asking to eat solid food
Reports exertional dyspnea with minimal activity
Review of Systems
General: Fever (n)
Cardiopulmonary: Dyspnea, Dyspnea on Exertion, Cough and Hemoptysis (old blood)
GI: Abdominal Pain (n) and Nausea (n)
Neuro: Headache (n)
Objective Data
Data Reviewed
Vital Signs / I&O / Oxygen:
Vital Signs
Temp Pulse Resp BP Pulse Ox
99.4 F 113 36 96/61 99
11/09/24 09:39 11/09/24 09:39 11/09/24 09:39 11/09/24 09:39 11/09/24 09:39
Intake and Output
11/08/24 11/09/24 11/10/24
06:59 06:59 06:59
Intake Total 828 / 853 1309.1 / 1336.8 77.8 / 77.8
Output Total 1949 / 2044 1190 / 1240 100 / 100
Balance -1122 / -1192 119.1 / 96.8 -22.2 / -22.2
SaO2 99
Nasal Cannula flow liters per 60
minute
Physical Exam
General: Respiratory Distress (Mild to moderate at rest)
HEENT: Normocephalic
Cardiovascular: S1-S2
Respiratory: Crackles and Rhonchi
GI: Soft and Non Distended
Neurology: Awake, Alert, No Motor Deficits and Other (Intermittently confused)
Skin: Warm
Labs/Micro/Reports
Lab Data
11/09/24 01:51
11/09/24 01:51
Laboratory Results
11/08/24 11/08/24 11/09/24
13:02 19:30 01:51
APTT 112.1 H 88.4 H 103.8 H
Microbiology
11/07/24 07:01 Blood/Venous Blood Culture - Preliminary
No Growth in 48 hours- Final report to follow
11/06/24 18:53 Blood/Venous Blood Culture - Preliminary
No Growth in 48 hours- Final report to follow
11/03/24 18:53 Foot - Right Anaerobic Culture - Preliminary
Culture pending. Anaerobic cultures are examined after 3
days incubation. Additional information to follow.
11/05/24 15:34 Urine Urine Culture - Final
Yeast
11/03/24 18:53 Foot - Right Wound Culture - Preliminary
Enterococcus faecalis - VRE
S aureus-Methicillin Sensitive
11/03/24 18:53 Foot - Right Gram Stain - Preliminary
11/01/24 19:33 Blood/Venous Blood Culture - Final
No Growth - Final Report
11/01/24 19:32 Blood/Venous Blood Culture - Final
No Growth - Final Report
11/06/24 14:11 Nasal Swab Influenza Types A & B (JAMARCUS) - Final
Negative for Influenza A & B, NAAT
Negative results must be combined with clinical observations
and patient history.
Nucleic Acid Amplification test (NAAT)performed on the
[employer] platform.
--- NOTE | 2024-11-09 10:47 | W.PN.HOSP.TC ---
Today's Communication/Plan
-
Await family decision
Assessment / Plan
Assessment / Plan
Gen-AAOx3, NAD
HEENT-NC, AT, anicteric, clear oral mm
Neck-supple
CV-reg, no M, +S1/S2
Lungs-bilateral rhonchi
Abd-soft, NT, ND
Ext-no edema
Musculoskeletal-no cyanosis, clubbing
Skin-warm and dry
Neuro-grossly non-focal
Psych-calm, cooperative
Acute Hypoxic Respiratory Failure -suspect multifactorial etiology including pneumonia, pulmonary emboli, etc. Unclear if heart failure contributing.
Currently on high flow nasal cannula, wean down as able. Pulmonary following.
Acute CHF, unspecified
-Diuretics now on hold given hypotension, BRIE
-monitor BMP with diuresis
-ECHO Limited study shows normal biventricular function without pericardial effusion.
-bnp 10k
Atrial fibrillation
� Start Cardizem drip
� Amiodarone drip if becoming hypotensive
� Start heparin drip
Right foot cellulitis/acute osteomyelitis -podiatry following.
-Edema versus loculated fluid in the plantar medial soft tissues adjacent to the base of the first metatarsal measuring approximately 2.8 x 1.2 x 1.5 cm: phlegmonous changes versus a developing abscess
-F/u Blood no growth today; cultures MSSA and enterococcus
-F/u MRSA PCR negative
� Switch to Zosyn now with UTI
-I&D 11/03
-Tylenol as needed for pain or fever
�Noninvasive studies, vascular consulted
Sepsis
� Most likely secondary to above infection
� Follow-up blood cultures
� Monitor fever curve, white count
� Continue Zosyn
-ID consulted
- Podiatry/Vascular work up
BRIE -improving.
-Septic ATN v AIN v pre-renal(Cardiorenal)
� Switch to Zosyn
� Hold IVF due to crackles for now
� Avoid nephrotoxic agents
- Urine Eosinophils f/u - negative
-Monitor with diuresis
Acute anemia -progressive drop in hemoglobin down to 7.3 this morning. No obvious bleeding clinically. Hold off on transfusion given poor prognosis and respiratory failure. Stools have been brown.
Type 2 diabetes mellitus with hyperglycemia -hemoglobin A1c 14.8%. Glucose 218 this morning.
-NovoLog 15 units 3 times a day
-Lantus 15 units at bedtime (reduce to 7qhs while on bipap)
-Sliding scale
-Hold metformin
fall likely mechanical
-PT/OT consulted
Essential hypertension
-Hold antihypertensives due to soft BPs and BRIE
Hyperlipidemia
-Continue statin
Depression
-citalopram continued
Hypothyroidism
-Levothyroxine continued
Hyperlipidemia
-Statin continued
Nicotine dependence
-Denied nicotine patch
DVT prophylaxis
-HSQ
DNR
Dispo -prognosis remains poor and family leaning towards comfort measures. Discussed with composition professor.
Anticipated Discharge: 24 - 48 hours
Subjective/Interval History
-
Date of Service: November 09, 2024
Patient seen and examined. No complaints.
Objective Data
-
Labs:
Laboratory Results
11/09/24
01:51
WBC 35.6 H
Hgb 7.3 L
Hct 21.6 L
Plt Count 338
APTT 103.8 H
Sodium 139
Potassium 3.8
Chloride 103
Carbon Dioxide 21 L
BUN 95 H
Creatinine 2.7 H
Glucose 218 H
Calcium 8.7
Vital Signs:
Vital Signs
Temp Pulse Resp BP Pulse Ox
99.4 F 113 36 96/61 99
11/09/24 09:39 11/09/24 09:39 11/09/24 09:39 11/09/24 09:39 11/09/24 09:39
I&O
11/08/24 11/09/24 11/10/24
06:59 06:59 06:59
Intake Total 828 / 853 1309.1 / 1336.8 77.8 / 77.8
Output Total 1949 / 2044 1190 / 1240 100 / 100
Balance -1122 / -1192 119.1 / 96.8 -22.2 / -22.2
Review of Systems
-
History Source: Patient
All other systems: Reviewed and negative
[2024-11-09] MEDS: NOVOLOG FLEXPEN-HIGH RESISTANCE 2 UNITS SC (11:12)
[2024-11-09 11:22] LABS: Glucose - Point of Care 189 mg/dl (70-99)
--- NOTE | 2024-11-09 12:16 | W.CON.PAL ---
Consultation
-
Date/Time Consultation Requested: 11/09
Date/Time Consultation Performed: 11/09
Requesting Provider: Manuel
Performing Provider: Harleen Molina
Reason for Consult: Goals of Care Discussion
Primary Diagnosis: MSOF
Reason for Admission
Illness Course/HPI
74 year old M with dementia, HTN, HLD, DM admitted s/p fall with new R foot wound.
On admission was found to have necrotic R foot wound with abscess. Seen by podiatry s/p I&D.
Was planned for vascular workup with angiogram, unfortunately developed septic shock and transferred to ICU. Now with ARF, respiratory failure on high flow/BIPAP. Family not interested in aggressive measures.
Seen at bedside this AM with no family present. He is awake and alert, confused.
Objective Data
-
Objective Data:
Vital Signs
Temp Pulse Resp BP Pulse Ox
99.4 F 113 36 96/61 90
11/09/24 09:39 11/09/24 09:39 11/09/24 09:39 11/09/24 09:39 11/09/24 11:46
Laboratory Results
11/09/24 01:51
11/09/24 01:51
PT 20.3 Sec (11.4-14.6) H 11/07/24 17:16
INR 1.71 11/07/24 17:16
APTT 103.8 Sec (23.4-35.0) H 11/09/24 01:51
Total Protein 6.0 g/dl (6.3-8.2) L 11/04/24 06:46
Albumin 2.6 g/dl (3.5-5.0) L 11/04/24 06:46
Urine Color Yellow 11/05/24 15:34
Urine Clarity Clear (Clear) 11/05/24 15:34
Urine pH 6.0 (5.0-9.0) 11/05/24 15:34
Ur Specific [place] 1.010 (<1.030) 11/05/24 15:34
Urine Ketones Negative (Negative) 11/05/24 15:34
Urine Occult Blood 2+ (Negative) A 11/05/24 15:34
Urine Nitrite Negative (Negative) 11/05/24 15:34
Urine Bilirubin Negative (Negative) 11/05/24 15:34
Ur Leukocyte Esterase 2+ (Negative) A 11/05/24 15:34
Urine Albumin 1+ (Neg - Trace) A 11/05/24 15:34
Palliative Performance Scale
Palliative Performance Scale:
PPS Level Ambulation Activity & Evidence of Disease Self Care Intake Conscious Level
100% Full Normal Activity & Work; Full Intake Full
No Evidence of Disease
90% Full Normal Activity & Work; Full Normal Full
Some Evidence of Disease
80% Full Normal Activity with Effort Full Normal or Full
Some Evidence of Disease Reduced
70% Reduced Unable Normal Job/Work Full Normal or Full
Significant Disease Reduced
60% Reduced Unable Hobby/Housework Occasional Normal or Full or Confusion
Significant Disease Assistance Reduced
50% Mainly Sit/Lie Unable to do Any Work Considerable Normal or Full or Confusion
Extensive Disease Assistance Req'd Reduced
40% Mainly in Bed Unable to do Most Activity Mainly Assistance Normal or Full or Drowsy;
Extensive Disease Reduced +/- Confusion
30% Totally Bed Unable to do Any Activity Total Care Normal or Full or Drowsy;
Bound Extensive Disease Reduced +/- Confusion
20% Totally Bed Bound Unable to do Any Activity Total Care Minimal to Full or Drowsy;
Extensive Disease Sips +/- Confusion
10% Totally Bed Bound Unable to do Any Activity Total Care Mouth Care Drowsy or Coma;
Extensive Disease Only +/- Confusion
0%
PPS Score Level:
Physical Exam
-
General: Appears Chronically Ill and Cachectic
HEENT: Normocephalic
Respiratory: Decreased Breath Sounds
Cardiac: Irregular Rhythm
Peripheral Vascular: No Edema
GI: Soft
Skin: Warm
Neuro: Awake and Alert
Psych: Confused
Assessment / Plan
-
Assessment/Plan:
74 year old M with sepsis, MSOF on high flow 02.
- spoke with patients son Pete via phone. Discussed comfort measures and potential switch to hospice GIP level of care. He asked to speak with his brother first before making any decisions.
- called me back and states he spoke with his brother and they wish to move forward with making patient comfortable. We discussed this means increasing medications for comfort and weaning down high levels of 02, stopping antibiotics. Discussed once
02 is weaned, passing could be imminent. He asks to continue current measures until family can get in to see him tonight around 5-6pm and then transition to comfort tonight.
- message relayed to wordpress developer, hospitalist and RN.
- transition to COAT FITTER tonight after family sees patient.
- recommend opioid infusion and weaning of high flow 02, stopping antibiotics. Discussed with son passing could be quick once 02 is weaned down.
Care Reviewed
Data Reviewed
Medical Tests: I reviewed
Reviewed with: Patient, Family, Physician and Nurse
--- NOTE | 2024-11-09 12:26 | PTCARENOTE ---
palliative care Harleen Molina spoke to son and they are in agreement for patient to transition to comfort care, they want to be present when the patient is changed to comfort care and requested to wait until after 5pm. he is refusing to eat for
pleasure feeds but is taking in clear liquids
[2024-11-09] MEDS: TYLENOL 650 MG PO (13:26)
[2024-11-09] MEDS: CORDARONE 518 MG IV (13:27)
--- NOTE | 2024-11-09 14:08 | CM ---
CM following re: discharge planning.
Discussed in Rounds, reviewed pt's chart, met with pt and spoke to pt's son Richard yesterday. Per rounds meeting, no escalation of care, palliative care consulted
Per Palliative care, pt's son deciding comfort measure and they will be here today at 5:00 p.m to make a final decision.
D/C plan: possible comfort care with inpatient hospice.
CM will follow with discharge plan updates as hospitalization progresses
[2024-11-09] MEDS: MORPHINE SULFATE 1 MG IV ×2 (14:47→20:43)
--- NOTE | 2024-11-09 15:05 | W.PN.UPDATE ---
Update Note
Progress Note Update
Palliative care discussions noted.
Will transition to comfort care later today once family arrives.
For now continue with supportive care without change.
Continue with morphine as needed.
--- NOTE | 2024-11-09 16:25 | PTCARENOTE ---
pt son in room visiting , wants to move forward with comfort care after rest of family is here . pt had x1 IV morphine for Resp distress , sats 88% rate 32, he is now having difficulty clearing his secretions, oral suctioned , pt Resp distress
improved with morphine
--- NOTE | 2024-11-09 17:13 | W.PN.UPDATE ---
Update Note
Progress Note Update
Patient will be transferred to comfort measures.
Proper order has been entered
Transferred to [facility]
Critical care team will sign off
[2024-11-09] MEDS: ATIVAN 2 MG IV ×2 (17:37→20:30)
[2024-11-09] MEDS: NSS (PRESERVATIVE FREE) 1 ML IV (17:38)
--- NOTE | 2024-11-09 18:11 | PTCARENOTE ---
pt now written for comfort care, med / surg status, pt given lorazepam for restlessness and anxiety , effective ,, pt daughter in law in room , wafting for rest of family to arrive
[2024-11-09] MEDS: LEVSIN ORAL DROPS 0.125 MG SL (19:06)
--- NOTE | 2024-11-09 19:49 | PTCARENOTE ---
rec'd pt lethargic, opens eys w/ stimulation, levson given for secretions, no resp distress noted, on hi flow 60 liters/ 100% o2- awaiting family members to dc o2 for comfort
--- NOTE | 2024-11-09 20:26 | PTCARENOTE ---
family at bedside, o2 removed at family's request, pt appears comf
--- NOTE | 2024-11-09 20:31 | PTCARENOTE ---
ativan 2mg iv given for restlessness
--- NOTE | 2024-11-09 20:46 | PTCARENOTE ---
morphine 1mg iv given for incr work of breathing
--- NOTE | 2024-11-09 21:10 | PTCARENOTE ---
family left, pt unresponsive
--- NOTE | 2024-11-09 21:32 | PTCARENOTE ---
pt , son -Alexander called & notified
--- NOTE | 2024-11-09 22:37 | PTCARENOTE ---
g[facility] life notified, to gisselle virk/ cherelle
--- NOTE | 2024-11-09 22:37 | W.PN.DEATH ---
Pronouncement of
-
Called to see patient to pronounce.
No spontaneous heart tones or respirations noted.
Patient not responsive to verbal stimuli.
Patient is pronounced .
Time of : 21:32
Date of : 11/09/24
Cause of : sepsis pneumonia
Family Notified: Yes (GODFREY Garcia notified son Alexander Childers over the phone. )
--- NOTE | 2024-11-12 15:00 | PN.CDI ---
CDI
- -
CDI:
Physician Documentation Request
Admit Date: 11/01/24 22:54
Dear Doctor Bogdan,
Patient admitted with right foot cellulitis.
11/04 Op report, 'Incision and drainage of the right foot and debridement of all necrotic tissue from the right plantar ulcer. There was deep tissue purulence noted from the ulcer site, so by using a hemostat and 15 blade, all the necrotic tissue was
removed...after the pulse lavage, manually expressed again, there was a scant purulence noted.
Please specify in your note the type of debridement performed:
1. Excisional Debridement - defined as removal by excision of devitalized tissue, necrosis or slough
2. Non-excisional debridement - defined as removal of devitalized tissue, necrosis or slough by such methods as irrigation, brushing, scrubbing or washing.
If the debridement was excisional, please also include:
1. Type of instrument used (#11 blade, #15 blade etc.)
2. What was excised (necrotic tissue, gangrenous tissue, slough etc.)
For excisional or non-excisional, please also include:
1. Depth of debridement (skin, subcutaneous tissue, fascia, muscle, bone etc)
2. Size and appearance of the wound (L, W, D, color of wound, drainage)
Use of terms such as suspected, likely, concern for, or probable (associated with a specific diagnosis that is being evaluated, monitored, or treated as if it exists) are acceptable and can be coded in the inpatient setting, when documented at the
time of discharge.
Thank you,
Coby MERCEDES,RN,CCDS
CDI Specialist
Available via tiger text
Please use your independent medical judgment in providing your response.
== END 2024-11-09 21:32 | disposition expired | DRG 622 ==
LOC: ICU 22:54
PROVIDERS: Emergency Medicine; Hospitalist; Internal Medicine; Nurse Practitioner; Registered Nurse; ADMITTING PHYSICIAN Hospitalist; ATTENDING PHYSICIAN Hospitalist; CONSULT PHYSICIAN Internal Medicine Cardiovascular Disease; CONSULT PHYSICIAN Internal Medicine Infectious Disease; CONSULT PHYSICIAN Podiatrist Foot & Ankle Surgery; CONSULT PHYSICIAN Specialist; CONSULT PHYSICIAN Surgery Vascular Surgery; EMERGENCY PHYSICIAN Student in an Organized Health Care Education/Training Program; OTHER PHYSICIAN Internal Medicine Critical Care Medicine; OTHER PHYSICIAN Nurse Practitioner Gerontology
PROC: 0JBQ0ZZ Excision of Right Foot Subcutaneous Tissue and Fascia, Open Approach (ICD-10-PCS; 2024-11-04)
DX: E11.621 Type 2 diabetes mellitus with foot ulcer (principal); A41.9 Sepsis, unspecified organism; J18.9 Pneumonia, unspecified organism; J96.01 Acute respiratory failure with hypoxia; R65.21 Severe sepsis with septic shock; L02.611 Cutaneous abscess of right foot; L03.115 Cellulitis of right lower limb; F03.93 Unspecified dementia, unspecified severity, with mood disturbance; F03.94 Unspecified dementia, unspecified severity, with anxiety; I47.19 Other supraventricular tachycardia; K56.7 Ileus, unspecified; M86.171 Other acute osteomyelitis, right ankle and foot; Z51.5 Encounter for palliative care; N17.0 Acute kidney failure with tubular necrosis; F17.200 Nicotine dependence, unspecified, uncomplicated; I48.91 Unspecified atrial fibrillation; N18.32 Chronic kidney disease, stage 3b; E11.65 Type 2 diabetes mellitus with hyperglycemia; E78.00 Pure hypercholesterolemia, unspecified; F32.A Depression, unspecified; E03.9 Hypothyroidism, unspecified; Z66 Do not resuscitate; E11.22 Type 2 diabetes mellitus with diabetic chronic kidney disease; Z79.4 Long term (current) use of insulin; D64.9 Anemia, unspecified; D75.839 Thrombocytosis, unspecified; E11.42 Type 2 diabetes mellitus with diabetic polyneuropathy; E11.69 Type 2 diabetes mellitus with other specified complication; I77.810 Thoracic aortic ectasia; L97.519 Non-pressure chronic ulcer of other part of right foot with unspecified severity; I12.9 Hypertensive chronic kidney disease with stage 1 through stage 4 chronic kidney disease, or unspecified chronic kidney disease
CPT/HCPCS: 93308; 36600; 71045; 71250; 73620; 73630; 73721; 74176; 76770; 80048; 80053; 80202; 81003; 81015; 81099; 82570; 82805; 82962; 83605; 83735; 83880; 84300; 84443; 84484; 85025; 85027; 85610; 85730; 86160; 87040; 87070; 87075; 87077; 87086; 87147; 87186; 87205; 87502; 87811; 93005; 93922; 93925; 93970; 94660; 96374; 97163; 97167; 97530; 99285; 99406